=== PATIENT | male | born 1955 | race Two or more races ===

== ENCOUNTER 2022-07-09 09:21 | Inpatient (IN) | payer OTHER ==
[~2022-07-09] VITALS: Ht 175.3 cm; Wt 96.5 kg
[2022-07-09] MEDS ORDERED: ONDANSETRON HCL 4 MG/2 ML VIAL IV ONE (09:45)
[2022-07-09] MEDS ORDERED: PANTOPRAZOLE 40 MG/10 ML VIAL INJ IV ONE (09:45)
[2022-07-09] MEDS ORDERED: SODIUM CHLORIDE 0.9% 500 ML IVB ONE (09:45)
[2022-07-09] MEDS ORDERED: MORPHINE SULFATE 4 MG/ML SYR/VIAL IV ONE (09:45)
[2022-07-09 10:18] LABS: Albumin 3.6 g/dL (3.4-5.0); Calcium 9.6 mg/dL (8.5-10.1); Potassium 4.7 mmol/L (3.5-5.1)
[2022-07-09 10:27] LABS: BUN/Creatinine Ratio 22.7 (10.0-20.0); Bilirubin, Total 0.8 mg/dL (0.2-1.0); Total Protein 8.2 g/dL (6.4-8.2)
[2022-07-09] MEDS ORDERED: IOHEXOL 300 MG/ML 100ML BOTTLE IJ ONE (11:05)
[2022-07-09] MEDS ORDERED: hydrALAZINE HCL 20 MG/ML VL IV ONE (12:30)
[2022-07-09 12:54] LABS: Basophils # (auto) 0.1 10 ^3/uL (0-0.2); Basophils % (auto) 0.9 % (0.0-2.0); Eosinophils # (auto) 0.1 10 ^3/uL (0-0.8); Eosinophils % (auto) 0.9 % (0.0-7.0); Hematocrit 46.6 % (41.0-53.0); Hemoglobin 15.3 g/dL (13.5-17.5); Lymphocytes % (auto) 10.8 % (10.0-50.0); Mean Corpuscular Hemoglobin 28.2 pg (28.0-32.0); Mean Corpuscular Hgb Conc. 32.9 g/dL (32.0-36.0); Mean Corpuscular Volume 85.7 fL (80.0-100.0); Monocytes # (auto) 1.1 10 ^3/uL (0-1.3); Neutrophils % (auto) 75.4 % (37.0-80.0); Red Blood Cells 5.43 10^6/uL (4.5-5.90); Red Cell Distribution Width 14.2 % (11.8-14.3); White Blood Cell 9.3 10^3/uL (4.4-10.8)
[2022-07-09] MEDS ORDERED: LACTULOSE 20Gm/30ML SOLN PO ONE (13:00)
[2022-07-09] MEDS ORDERED: NITROGLYCERIN 0.4 MG SL TAB SL PRN (13:00)
[2022-07-09] MEDS ORDERED: ACETAMINOPHEN 325 MG TAB PO PRN (13:00)
[2022-07-09] MEDS ORDERED: DOCUSATE SOD 100 MG CAP PO PRN (13:00)
[2022-07-09] MEDS ORDERED: LISI-716 PO (13:04)
[2022-07-09] MEDS ORDERED: TAMS0.4C36 PO (13:04)
[2022-07-09] MEDS ORDERED: AMLO-496 PO (13:04)
[2022-07-09] MEDS ORDERED: hydrALAZINE HCL 20 MG/ML VL IV PRN (13:15)
[2022-07-09] MEDS ORDERED: GASTROGRAFIN 120 ML SOL ONE (13:56)
[2022-07-09 15:56] LABS: Urine Bacteria NONE SEEN /hpf (None Seen); Urine Blood Negative /uL (Negative); Urine WBC <1 /hpf (0 - 3)
[2022-07-09 15:58] LABS: Urine Specific Gravity > 1.050 (1.001-1.035)
[2022-07-09] MEDS: SODIUM CHLORIDE 0.9% 1,000 ML IV SCH (16:01)
[2022-07-09] MEDS: TAMSULOSIN HYDROCHLORIDE 0.4 MG CAP PO SCH (18:00)
[2022-07-10] MEDS: SODIUM CHLORIDE 0.9% 1,000 ML IV SCH ×2 (02:24→15:35)
[2022-07-10] MEDS: ONDANSETRON HCL 4 MG/2 ML VIAL IV PRN ×2 (03:15→10:57)
[2022-07-10] MEDS: MORPHINE SULFATE INJ 2 MG/ml SYRG IV PRN ×4 (05:20→21:54)
[2022-07-10 05:50] LABS: Potassium 3.6 mmol/L (3.5-5.1)
[2022-07-10 05:55] LABS: Albumin 3.6 g/dL (3.4-5.0); BUN/Creatinine Ratio 22.7 (10.0-20.0); Bilirubin, Total 0.9 mg/dL (0.2-1.0); Calcium 10.1 mg/dL (8.5-10.1)
[2022-07-10] MEDS: PANTOPRAZOLE 40 MG/10 ML VIAL INJ IV SCH (10:54)
[2022-07-10] MEDS: LACTULOSE 20Gm/30ML SOLN PO SCH (10:54)
[2022-07-10] MEDS: amLODIPine BESYLATE 5 MG TAB PO SCH (10:55)
[2022-07-10] MEDS ORDERED: ENALAPRILAT 1.25 MG/ML-1ML VIAL IV ONE (13:45)
[2022-07-10 14:15] VITALS: BP 130/73
[2022-07-10] MEDS ORDERED: INFLUENZA QUAD 2022-2023 0.5 ML SYRG IM ONE (16:15)
[2022-07-10] MEDS ORDERED: cloNIDine HCL 0.1 MG TAB PO PRN (16:15)
[2022-07-10] MEDS ORDERED: PNEUMOCOCCAL VACC POLYS 25 MCG/0.5 ML VIAL IM ONE (16:15)
[2022-07-10 17:00] VITALS: BP 122/69
[2022-07-10] MEDS: TAMSULOSIN HYDROCHLORIDE 0.4 MG CAP PO SCH (17:20)
[2022-07-10] MEDS ORDERED: TRIA75TA55 PO (20:42)
[2022-07-10] MEDS: LABETALOL HCL 200 MG TAB PO SCH (21:53)
[2022-07-10 22:00] VITALS: BP 155/93
[2022-07-11] VITALS: BP 130/85
[2022-07-11 05:00] VITALS: BP 117/74
[2022-07-11] MEDS: SODIUM CHLORIDE 0.9% 1,000 ML IV SCH ×2 (05:37→18:26)
[2022-07-11 05:55] LABS: Basophils # (auto) 0 10 ^3/uL (0-0.2); Basophils % (auto) 0.2 % (0.0-2.0); Eosinophils # (auto) 0 10 ^3/uL (0-0.8); Eosinophils % (auto) 0.2 % (0.0-7.0); Hematocrit 48.6 % (41.0-53.0); Hemoglobin 16.5 g/dL (13.5-17.5); Lymphocytes # (auto) 0.7 10 ^3/uL (0.4-5.4); Lymphocytes % (auto) 5.1 % (10.0-50.0); Mean Corpuscular Hemoglobin 28.9 pg (28.0-32.0); Mean Corpuscular Hgb Conc. 33.9 g/dL (32.0-36.0); Mean Corpuscular Volume 85.4 fL (80.0-100.0); Monocytes # (auto) 1.5 10 ^3/uL (0-1.3); Monocytes % (auto) 10.6 % (0.0-12.0); Neutrophils # (auto) 11.8 10 ^3/uL (1.6-8.6); Neutrophils % (auto) 83.9 % (37.0-80.0); Nucleated Red Blood Cells % 0.1 %; Red Blood Cells 5.69 10^6/uL (4.5-5.90); Red Cell Distribution Width 14.3 % (11.8-14.3); White Blood Cell 14.1 10^3/uL (4.4-10.8)
[2022-07-11 06:17] LABS: Potassium 4.2 mmol/L (3.5-5.1)
[2022-07-11 06:29] LABS: BUN/Creatinine Ratio 33.1 (10.0-20.0)
[2022-07-11 06:30] LABS: Albumin 3.1 g/dL (3.4-5.0); Calcium 9.2 mg/dL (8.5-10.1)
[2022-07-11] MEDS: MORPHINE SULFATE INJ 2 MG/ml SYRG IV PRN ×2 (06:50→20:28)
[2022-07-11] MEDS: ONDANSETRON HCL 4 MG/2 ML VIAL IV PRN ×2 (06:51→20:28)
[2022-07-11 06:53] LABS: Bilirubin, Total 0.7 mg/dL (0.2-1.0); Total Protein 6.7 g/dL (6.4-8.2)
[2022-07-11 09:00] VITALS: BP 126/77
[2022-07-11] MEDS: LACTULOSE 20Gm/30ML SOLN PO SCH (10:00)
[2022-07-11] MEDS: LABETALOL HCL 200 MG TAB PO SCH ×2 (10:00→22:41)
[2022-07-11] MEDS: amLODIPine BESYLATE 5 MG TAB PO SCH (10:00)
[2022-07-11] MEDS: PANTOPRAZOLE 40 MG/10 ML VIAL INJ IV SCH (10:46)
[2022-07-11] MEDS: ENOXAPARIN SOD 40 MG/0.4 ML SYRINGE SC SCH (10:46)
[2022-07-11 13:00] VITALS: BP 110/65
[2022-07-11 17:00] VITALS: BP 104/73
[2022-07-11] MEDS: TAMSULOSIN HYDROCHLORIDE 0.4 MG CAP PO SCH (18:00)
[2022-07-11 22:00] VITALS: BP 114/71
[2022-07-12 05:00] VITALS: BP 92/59
[2022-07-12 05:19] LABS: Basophils # (auto) 0 10 ^3/uL (0-0.2); Basophils % (auto) 0.2 % (0.0-2.0); Eosinophils # (auto) 0 10 ^3/uL (0-0.8); Eosinophils % (auto) 0.2 % (0.0-7.0); Hematocrit 47.2 % (41.0-53.0); Lymphocytes # (auto) 0.8 10 ^3/uL (0.4-5.4); Lymphocytes % (auto) 8.7 % (10.0-50.0); Mean Corpuscular Volume 85.5 fL (80.0-100.0); Monocytes # (auto) 1.3 10 ^3/uL (0-1.3); Monocytes % (auto) 14.1 % (0.0-12.0); Neutrophils # (auto) 6.9 10 ^3/uL (1.6-8.6); Neutrophils % (auto) 76.8 % (37.0-80.0); Nucleated Red Blood Cells % 0.1 %; Red Blood Cells 5.52 10^6/uL (4.5-5.90); Red Cell Distribution Width 14.3 % (11.8-14.3); White Blood Cell 8.9 10^3/uL (4.4-10.8)
[2022-07-12 05:30] LABS: BUN/Creatinine Ratio 29.2 (10.0-20.0); Calcium 9.1 mg/dL (8.5-10.1); Potassium 3.9 mmol/L (3.5-5.1)
[2022-07-12] MEDS: SODIUM CHLORIDE 0.9% 1,000 ML IV SCH ×2 (07:40→21:00)
[2022-07-12 09:00] VITALS: BP 97/53
[2022-07-12] MEDS: LACTULOSE 20Gm/30ML SOLN PO SCH (09:28)
[2022-07-12] MEDS: amLODIPine BESYLATE 5 MG TAB PO SCH (09:29)
[2022-07-12] MEDS: ENOXAPARIN SOD 40 MG/0.4 ML SYRINGE SC SCH (09:29)
[2022-07-12] MEDS: LABETALOL HCL 200 MG TAB PO SCH ×2 (09:29→23:10)
[2022-07-12] MEDS: PANTOPRAZOLE 40 MG/10 ML VIAL INJ IV SCH (10:00)
[2022-07-12] MEDS ORDERED: CLINIMIX PER PHARMACY 0 ML IV SCH (11:30)
[2022-07-12 12:48] LABS: Albumin 2.6 g/dL (3.4-5.0); Magnesium 2.7 mg/dL (1.6-2.6)
[2022-07-12 12:53] LABS: Bilirubin, Direct 0.3 mg/dL (0-0.2); Bilirubin, Total 0.8 mg/dL (0.2-1.0); Phosphorus 3.4 mg/dL (2.5-4.90); Total Protein 6.8 g/dL (6.4-8.2)
[2022-07-12 13:00] VITALS: BP 95/58
[2022-07-12 17:00] VITALS: BP 113/70
[2022-07-12] MEDS: TAMSULOSIN HYDROCHLORIDE 0.4 MG CAP PO SCH (17:47)
[2022-07-12 22:00] VITALS: BP 102/59
[2022-07-12] MEDS: InsuLIN REG 1unit/0.01ml Soln (100units/ml) SC SCH (23:10)
[2022-07-12] MEDS: ACCU-CHEK COMFORT CURVE STRIP VI SCH (23:11)
[2022-07-13] MEDS ORDERED: DEXTROSE (50%) 50ML SYRG IV SCH
[2022-07-13 05:00] VITALS: BP 89/48
[2022-07-13] MEDS: ACCU-CHEK COMFORT CURVE STRIP VI SCH ×3 (06:00→18:03)
[2022-07-13] MEDS: InsuLIN REG 1unit/0.01ml Soln (100units/ml) SC SCH ×3 (06:00→18:00)
[2022-07-13] MEDS: AMINO ACID INFUSION IN D10W 1,000 ML IV NR ×3 (08:39→21:49)
[2022-07-13 09:00] VITALS: BP 90/50
[2022-07-13] MEDS: PANTOPRAZOLE 40 MG/10 ML VIAL INJ IV SCH (09:48)
[2022-07-13] MEDS: LACTULOSE 20Gm/30ML SOLN PO SCH (09:49)
[2022-07-13] MEDS: ENOXAPARIN SOD 40 MG/0.4 ML SYRINGE SC SCH (09:51)
[2022-07-13] MEDS: LABETALOL HCL 200 MG TAB PO SCH (09:57)
[2022-07-13] MEDS: amLODIPine BESYLATE 5 MG TAB PO SCH (09:58)
[2022-07-13] MEDS: METOPROLOL TARTRATE 25 MG TAB PO SCH ×2 (10:00→22:00)
[2022-07-13 10:54] LABS: BUN/Creatinine Ratio 26.4 (10.0-20.0); Calcium 8.9 mg/dL (8.5-10.1); Potassium 3.8 mmol/L (3.5-5.1)
[2022-07-13] MEDS ORDERED: hydrALAZINE HCL 20 MG/ML VL IV PRN (12:00)
[2022-07-13] MEDS: D5W/SOD CHLO 0.9% 1,000 ML IV SCH ×2 (12:15→18:55)
[2022-07-13 12:50] LABS: Urine Bacteria NONE SEEN /hpf (None Seen); Urine Blood Negative /uL (Negative); Urine Hyaline Cast FEW /lpf (0 - 2); Urine Mucus FEW (None Seen); Urine Specific Gravity 1.021 (1.001-1.035); Urine WBC 1 /hpf (0 - 3)
[2022-07-13 13:00] VITALS: BP 86/51
[2022-07-13 13:14] LABS: Basophils # (auto) 0 10 ^3/uL (0-0.2); Basophils % (auto) 0.1 % (0.0-2.0); Eosinophils # (auto) 0.2 10 ^3/uL (0-0.8); Eosinophils % (auto) 2.4 % (0.0-7.0); Hematocrit 47.8 % (41.0-53.0); Hemoglobin 15.8 g/dL (13.5-17.5); Lymphocytes # (auto) 0.5 10 ^3/uL (0.4-5.4); Mean Corpuscular Hemoglobin 28.7 pg (28.0-32.0); Mean Corpuscular Hgb Conc. 33.1 g/dL (32.0-36.0); Mean Corpuscular Volume 86.5 fL (80.0-100.0); Monocytes # (auto) 0.9 10 ^3/uL (0-1.3); Monocytes % (auto) 14.1 % (0.0-12.0); Neutrophils % (auto) 75.4 % (37.0-80.0); Red Blood Cells 5.52 10^6/uL (4.5-5.90); Red Cell Distribution Width 14.2 % (11.8-14.3); White Blood Cell 6.7 10^3/uL (4.4-10.8)
[2022-07-13 13:15] LABS: Sodium Urine < 5 mmol/L (40-220)
[2022-07-13 13:17] LABS: Creatinine, Urine 287 mg/dL (30.0-125.0)
[2022-07-13 13:34] LABS: INR 1.03 (0.9-1.15); Partial Thromboplastin Time 35.1 sec (24.6-33.4)
[2022-07-13 17:00] VITALS: BP 115/58
[2022-07-13] MEDS ORDERED: LIDOCAINE 1% (LOCAL ANESTH.) PF 5ml SDV ID ONE (17:30)
[2022-07-13] MEDS ORDERED: ALBUMIN 25% 50 ML IV ONE ×2 (18:15→20:15)
[2022-07-13] MEDS: TAMSULOSIN HYDROCHLORIDE 0.4 MG CAP PO SCH (18:34)
[2022-07-13] MEDS: SODIUM CHLOR 0.9% PF (SALINE LOCK) 10ML VIAL/SYR IV SCH (22:00)
[2022-07-13] MEDS ORDERED: LORazepam 2MG/ML-1ML VIAL IV PRN (23:00)
[2022-07-13] MEDS ORDERED: LORazepam 2MG/ML-1ML VIAL IV ONE (23:30)
[2022-07-14] VITALS (33 sets, daily range): BP systolic 87–167; BP diastolic 37–103
[2022-07-14] MEDS: ACCU-CHEK COMFORT CURVE STRIP VI SCH ×4 (00:05→19:16)
[2022-07-14] MEDS: InsuLIN REG 1unit/0.01ml Soln (100units/ml) SC SCH ×4 (00:09→18:00)
[2022-07-14] MEDS: D5W/SOD CHLO 0.9% 1,000 ML IV SCH ×4 (01:35→22:37)
[2022-07-14 06:32] LABS: Hematocrit 44.8 % (41.0-53.0); Hemoglobin 15.1 g/dL (13.5-17.5); Mean Corpuscular Hemoglobin 28.6 pg (28.0-32.0); Mean Corpuscular Hgb Conc. 33.8 g/dL (32.0-36.0); Mean Corpuscular Volume 84.7 fL (80.0-100.0); Red Blood Cells 5.28 10^6/uL (4.5-5.90); White Blood Cell 5.9 10^3/uL (4.4-10.8)
[2022-07-14 06:33] LABS: Basophils % (manual) 0 (0.0-2.0); Blast Cells 0; Metamyelocytes % 0; Myelocytes % 0; Promyelocytes % 0; Reactive Lymphocytes 0
[2022-07-14 06:38] LABS: Potassium 3.4 mmol/L (3.5-5.1)
[2022-07-14 06:46] LABS: Albumin 2.8 g/dL (3.4-5.0); BUN/Creatinine Ratio 29.2 (10.0-20.0); Bilirubin, Total 0.6 mg/dL (0.2-1.0); Calcium 8.7 mg/dL (8.5-10.1); Magnesium 3.2 mg/dL (1.6-2.6); Phosphorus 4.2 mg/dL (2.5-4.90); Total Protein 7.2 g/dL (6.4-8.2)
[2022-07-14 07:15] LABS: Band Neutrophils % (manual) 2; Eosinophils % (manual) 1 (0-7); Lymphocytes % (manual) 18 (10.0-50.0); Monocytes % (manual) 15 (0-12)
[2022-07-14] MEDS ORDERED: POTASSIUM CHLORIDE 20 MEQ, LIDOCAINE 1% (LOCAL ANESTH.) 2 ML in SODIUM CHL 0.9% 100 ML IV ONE (09:45)
[2022-07-14] MEDS ORDERED: METOPROLOL TARTRATE 1MG/1ML-5ML VIAL IV ONE (09:45)
[2022-07-14] MEDS ORDERED: METOPROLOL TARTRATE 1MG/1ML-5ML VIAL IV PRN (09:45)
[2022-07-14] MEDS: METOPROLOL TARTRATE 25 MG TAB PO SCH ×2 (10:00→21:46)
[2022-07-14] MEDS: LACTULOSE 20Gm/30ML SOLN PO SCH (10:00)
[2022-07-14] MEDS: PANTOPRAZOLE 40 MG/10 ML VIAL INJ IV SCH (10:14)
[2022-07-14] MEDS: ENOXAPARIN SOD 40 MG/0.4 ML SYRINGE SC SCH (10:15)
[2022-07-14] MEDS: SODIUM CHLOR 0.9% PF (SALINE LOCK) 10ML VIAL/SYR IV SCH ×2 (10:15→21:46)
[2022-07-14] MEDS: MORPHINE SULFATE INJ 2 MG/ml SYRG IV PRN (10:19)
[2022-07-14 11:45] LABS: Lactic Acid w/Reflex 2.2 mmol/L (0.4-2.0)
[2022-07-14 11:49] LABS: INR 1.05 (0.9-1.15); Partial Thromboplastin Time 29.3 sec (24.6-33.4)
[2022-07-14] MEDS ORDERED: POTASSIUM CHL 20MEQ/100ML 100 ML IV ONE (12:15)
[2022-07-14] MEDS ORDERED: LIDOCAINE 2% JELLY 11ml (GLYDO) ONE (12:43)
[2022-07-14] MEDS ORDERED: HYDROmorphone HCL 2 MG/ML VL/or syr ONE (13:16)
[2022-07-14] MEDS ORDERED: fentaNYL CITRATE 100 MCG/2 ML VL ONE ×2 (13:16→16:06)
[2022-07-14] MEDS ORDERED: MIDAZOLAM HCL 2MG/2ML 2ml VIAL (1mg/ml) ONE ×2 (13:17→14:13)
[2022-07-14] MEDS ORDERED: fentaNYL CITRATE 5 ML ONE (13:17)
[2022-07-14] MEDS ORDERED: NOREPINEPHRINE 8 MG/250ML KIT 0 ML IV ONE (13:35)
[2022-07-14] MEDS ORDERED: SUCCINYLCHOLINE CHLORIDE 20 MG/ML 10ML VIAL IV ONE (13:43)
[2022-07-14] MEDS ORDERED: cefTRIAXone 1GM/50ML D5W 50 ML IV ONE (13:45)
[2022-07-14] MEDS ORDERED: NOREPINEPHRINE 8 MG/250ML KIT 250 ML IV ONE ×2 (13:45→22:43)
[2022-07-14] MEDS ORDERED: EPINEPHrine HCL 1 MG/1 ML AMP ONE (14:10)
[2022-07-14] MEDS ORDERED: ROCURONIUM 10MG/ML 10ML VIAL IV ONE (15:33)
[2022-07-14] MEDS ORDERED: PHENYLEPHRINE IV 250 ML IV ONE (16:15)
[2022-07-14] MEDS ORDERED: fentaNYL Drip 2500mCg/250mlNS 250 ML IV ONE (17:15)
[2022-07-14] MEDS: TAMSULOSIN HYDROCHLORIDE 0.4 MG CAP PO SCH (18:00)
[2022-07-14] MEDS: fentaNYL Drip 2500mCg/250mlNS 250 ML IV SCH (19:00)
[2022-07-14] MEDS: SODIUM BICARBONATE 50ML VIAL 50 ML in SOD CHL 0.45% 1,000 ML IV SCH (19:05)
[2022-07-14] MEDS: MEROPENEM 500MG IVPB 50 ML IV SCH (19:18)
[2022-07-14] MEDS: PHENYLEPHRINE IV 250 ML IV SCH (23:32)
[2022-07-15] VITALS (103 sets, daily range): BP systolic 76–170; BP diastolic 49–89
[2022-07-15] MEDS ORDERED: MIDAZOLAM DRIP 50 mg/50mL 100 ML IV ONE (01:52)
[2022-07-15] MEDS: MIDAZOLAM DRIP 50 mg/50mL 50 ML IV SCH ×2 (02:00→08:58)
[2022-07-15] MEDS: MEROPENEM 500MG IVPB 50 ML IV SCH ×2 (03:00→15:43)
[2022-07-15 03:30] LABS: Basophils # (auto) 0.1 10 ^3/uL (0-0.2); Basophils % (auto) 0.7 % (0.0-2.0); Eosinophils # (auto) 0 10 ^3/uL (0-0.8); Eosinophils % (auto) 0.1 % (0.0-7.0); Hematocrit 45.5 % (41.0-53.0); Hemoglobin 15.4 g/dL (13.5-17.5); Lymphocytes # (auto) 0.3 10 ^3/uL (0.4-5.4); Lymphocytes % (auto) 2.4 % (10.0-50.0); Mean Corpuscular Hemoglobin 28.5 pg (28.0-32.0); Mean Corpuscular Hgb Conc. 33.8 g/dL (32.0-36.0); Mean Corpuscular Volume 84.3 fL (80.0-100.0); Monocytes # (auto) 1.1 10 ^3/uL (0-1.3); Monocytes % (auto) 9.4 % (0.0-12.0); Neutrophils # (auto) 9.8 10 ^3/uL (1.6-8.6); Neutrophils % (auto) 87.4 % (37.0-80.0); Red Cell Distribution Width 14.4 % (11.8-14.3); White Blood Cell 11.3 10^3/uL (4.4-10.8)
[2022-07-15 04:29] LABS: Albumin 1.8 g/dL (3.4-5.0); Calcium 7.2 mg/dL (8.5-10.1); Magnesium 2.3 mg/dL (1.6-2.6); Potassium 4.1 mmol/L (3.5-5.1)
[2022-07-15 04:33] LABS: BUN/Creatinine Ratio 33.4 (10.0-20.0); Bilirubin, Total 0.9 mg/dL (0.2-1.0); Phosphorus 4.9 mg/dL (2.5-4.90); Total Protein 5.4 g/dL (6.4-8.2)
[2022-07-15] MEDS: D5W/SOD CHLO 0.9% 1,000 ML IV SCH ×2 (05:06→10:55)
[2022-07-15] MEDS: PHENYLEPHRINE IV 250 ML IV SCH ×2 (05:07→07:30)
[2022-07-15] MEDS: NOREPINEPHRINE 8 MG/250ML KIT 250 ML IV SCH ×3 (05:08→09:07)
[2022-07-15] MEDS: ACCU-CHEK COMFORT CURVE STRIP VI SCH ×6 (06:09→23:38)
[2022-07-15] MEDS: InsuLIN REG 1unit/0.01ml Soln (100units/ml) SC SCH ×5 (06:09→23:38)
[2022-07-15] MEDS: fentaNYL Drip 2500mCg/250mlNS 250 ML IV SCH ×2 (08:57→20:19)
[2022-07-15] MEDS: LACTULOSE 20Gm/30ML SOLN PO SCH (10:00)
[2022-07-15] MEDS: DOPamine 1600MCG/ML D5W 250 ML IV SCH (11:00)
[2022-07-15] MEDS: AMINO ACID INFUSION IN D10W 1,000 ML IV NR ×2 (12:28→20:16)
[2022-07-15] MEDS: PANTOPRAZOLE 40 MG/10 ML VIAL INJ IV SCH (12:29)
[2022-07-15] MEDS: SODIUM CHLOR 0.9% PF (SALINE LOCK) 10ML VIAL/SYR IV SCH ×2 (12:29→22:06)
[2022-07-15] MEDS: ENOXAPARIN SOD 40 MG/0.4 ML SYRINGE SC SCH (12:29)
[2022-07-15] MEDS: ALBUMIN 25% 50 ML IV SCH ×2 (12:31→20:15)
[2022-07-15] MEDS: PHENYLEPHRINE INJ 80 MG in SODIUM CHL 0.9% 242 ML IV SCH (13:26)
[2022-07-15] MEDS: SODIUM BICARBONATE 50ML VIAL 50 ML in SOD CHL 0.45% 1,000 ML IV SCH ×2 (13:46→14:15)
[2022-07-15] MEDS: NOREPINEPHRINE BITARTRATE 32 MG in SODIUM CHL 0.9% 218 ML IV SCH (13:46)
[2022-07-15] MEDS: TAMSULOSIN HYDROCHLORIDE 0.4 MG CAP PO SCH (18:00)
[2022-07-16] VITALS (106 sets, daily range): BP systolic 97–182; BP diastolic 43–120
[2022-07-16] MEDS: NOREPINEPHRINE BITARTRATE 32 MG in SODIUM CHL 0.9% 218 ML IV SCH (01:41)
[2022-07-16] MEDS: MIDAZOLAM DRIP 50 mg/50mL 50 ML IV SCH ×2 (01:41→17:30)
[2022-07-16] MEDS: ALBUMIN 25% 50 ML IV SCH (02:54)
[2022-07-16] MEDS: MEROPENEM 500MG IVPB 50 ML IV SCH ×2 (02:55→15:23)
[2022-07-16] MEDS: SODIUM BICARBONATE 50ML VIAL 50 ML in SOD CHL 0.45% 1,000 ML IV SCH ×2 (03:08→17:31)
[2022-07-16 04:25] LABS: Albumin 2.1 g/dL (3.4-5.0); Calcium 7.6 mg/dL (8.5-10.1); Magnesium 2.4 mg/dL (1.6-2.6); Potassium 3.4 mmol/L (3.5-5.1)
[2022-07-16 04:28] LABS: BUN/Creatinine Ratio 39.2 (10.0-20.0); Bilirubin, Total 0.6 mg/dL (0.2-1.0); Phosphorus 2.2 mg/dL (2.5-4.90); Total Protein 5.1 g/dL (6.4-8.2)
[2022-07-16] MEDS: InsuLIN REG 1unit/0.01ml Soln (100units/ml) SC SCH ×3 (05:40→23:27)
[2022-07-16 07:47] LABS: Hematocrit 36.8 % (41.0-53.0); Hemoglobin 12.1 g/dL (13.5-17.5); Mean Corpuscular Hemoglobin 28.1 pg (28.0-32.0); Mean Corpuscular Hgb Conc. 32.9 g/dL (32.0-36.0); Mean Corpuscular Volume 85.4 fL (80.0-100.0); Red Blood Cells 4.31 10^6/uL (4.5-5.90); Red Cell Distribution Width 14.8 % (11.8-14.3); White Blood Cell 7.5 10^3/uL (4.4-10.8)
[2022-07-16 07:57] LABS: Basophils % (manual) 0 (0.0-2.0); Blast Cells 0; Metamyelocytes % 0; Myelocytes % 0; Promyelocytes % 0; Reactive Lymphocytes 0
[2022-07-16 08:28] LABS: Band Neutrophils % (manual) 21; Eosinophils % (manual) 2 (0-7); Lymphocytes % (manual) 9 (10.0-50.0); Monocytes % (manual) 17 (0-12)
[2022-07-16] MEDS: fentaNYL Drip 2500mCg/250mlNS 250 ML IV SCH ×2 (08:56→21:59)
[2022-07-16] MEDS: DOPamine 1600MCG/ML D5W 250 ML IV SCH ×2 (08:57→13:58)
[2022-07-16] MEDS: PANTOPRAZOLE 40 MG/10 ML VIAL INJ IV SCH ×2 (08:58→20:58)
[2022-07-16] MEDS: SODIUM CHLOR 0.9% PF (SALINE LOCK) 10ML VIAL/SYR IV SCH ×2 (08:59→21:57)
[2022-07-16] MEDS: ENOXAPARIN SOD 40 MG/0.4 ML SYRINGE SC SCH (09:20)
[2022-07-16] MEDS ORDERED: POTASSIUM PHOSPHATE 22 MEQ in SODIUM CHL 0.9% 100 ML IV ONE (09:45)
[2022-07-16] MEDS: PHENYLEPHRINE INJ 80 MG in SODIUM CHL 0.9% 242 ML IV SCH (11:45)
[2022-07-16] MEDS: ACCU-CHEK COMFORT CURVE STRIP VI SCH ×2 (12:03→23:28)
[2022-07-16] MEDS ORDERED: POTASSIUM PHOSPHATE 26.4 MEQ in SODIUM CHL 0.9% 100 ML IV ONE (16:30)
[2022-07-16] MEDS: AMINO ACID INFUSION IN D10W 1,000 ML IV NR (20:31)
[2022-07-16] MEDS ORDERED: METOPROLOL TARTRATE 25 MG TAB PO SCH (22:00)
[2022-07-16] MEDS ORDERED: DEXTROSE 10% 250 ML IV ONE (23:19)
[2022-07-17] VITALS (105 sets, daily range): BP systolic 93–183; BP diastolic 53–91
[2022-07-17] MEDS: MEROPENEM 500MG IVPB 50 ML IV SCH ×2 (02:15→14:49)
[2022-07-17] MEDS: MIDAZOLAM DRIP 50 mg/50mL 50 ML IV SCH ×3 (02:35→21:46)
[2022-07-17] MEDS: DOPamine 1600MCG/ML D5W 250 ML IV SCH ×2 (02:43→16:56)
[2022-07-17 04:32] LABS: Basophils # (auto) 0 10 ^3/uL (0-0.2); Basophils % (auto) 0.1 % (0.0-2.0); Eosinophils # (auto) 0.1 10 ^3/uL (0-0.8); Eosinophils % (auto) 1.1 % (0.0-7.0); Hematocrit 36.5 % (41.0-53.0); Hemoglobin 12.2 g/dL (13.5-17.5); Lymphocytes # (auto) 0.6 10 ^3/uL (0.4-5.4); Lymphocytes % (auto) 7.1 % (10.0-50.0); Mean Corpuscular Hemoglobin 28.5 pg (28.0-32.0); Mean Corpuscular Hgb Conc. 33.5 g/dL (32.0-36.0); Monocytes # (auto) 0.9 10 ^3/uL (0-1.3); Neutrophils # (auto) 7.1 10 ^3/uL (1.6-8.6); Neutrophils % (auto) 81.7 % (37.0-80.0); Red Blood Cells 4.29 10^6/uL (4.5-5.90); Red Cell Distribution Width 14.8 % (11.8-14.3); White Blood Cell 8.7 10^3/uL (4.4-10.8)
[2022-07-17 04:39] LABS: Albumin 1.9 g/dL (3.4-5.0); Calcium 8.1 mg/dL (8.5-10.1); Magnesium 2.2 mg/dL (1.6-2.6); Potassium 3.1 mmol/L (3.5-5.1)
[2022-07-17 04:42] LABS: BUN/Creatinine Ratio 34.6 (10.0-20.0)
[2022-07-17 04:44] LABS: Phosphorus 1.8 mg/dL (2.5-4.90); Total Protein 5.3 g/dL (6.4-8.2)
[2022-07-17] MEDS: ACCU-CHEK COMFORT CURVE STRIP VI SCH ×3 (06:00→18:00)
[2022-07-17] MEDS: InsuLIN REG 1unit/0.01ml Soln (100units/ml) SC SCH ×3 (06:00→18:00)
[2022-07-17] MEDS: SODIUM BICARBONATE 50ML VIAL 50 ML in SOD CHL 0.45% 1,000 ML IV SCH ×2 (06:25→19:47)
[2022-07-17] MEDS: SODIUM CHLOR 0.9% PF (SALINE LOCK) 10ML VIAL/SYR IV SCH ×2 (09:49→22:00)
[2022-07-17] MEDS: PANTOPRAZOLE 40 MG/10 ML VIAL INJ IV SCH ×2 (09:54→21:43)
[2022-07-17] MEDS: ENOXAPARIN SOD 40 MG/0.4 ML SYRINGE SC SCH (09:54)
[2022-07-17] MEDS: fentaNYL Drip 2500mCg/250mlNS 250 ML IV SCH ×2 (10:05→21:59)
[2022-07-17] MEDS ORDERED: POTASSIUM PHOSPHATE 44 MEQ in D5W 5% 250 ML IV ONE (10:15)
[2022-07-17] MEDS: NOREPINEPHRINE BITARTRATE 32 MG in SODIUM CHL 0.9% 218 ML IV SCH (11:45)
[2022-07-17] MEDS: PHENYLEPHRINE INJ 80 MG in SODIUM CHL 0.9% 242 ML IV SCH (11:45)
[2022-07-17] MEDS ORDERED: SODIUM CHLORIDE 0.9% 500 ML IV ONE (12:45)
[2022-07-17] MEDS: AMINO ACID INFUSION IN D10W 1,000 ML IV NR (19:46)
[2022-07-18] VITALS (106 sets, daily range): BP systolic 58–181; BP diastolic 36–112
[2022-07-18 00:40] LABS: Urine Bacteria FEW /hpf (None Seen); Urine Blood 2+ /uL (Negative); Urine Specific Gravity 1.015 (1.001-1.035); Urine WBC 9 /hpf (0 - 3)
[2022-07-18] MEDS: ACCU-CHEK COMFORT CURVE STRIP VI SCH ×5 (00:49→23:45)
[2022-07-18] MEDS: MEROPENEM 500MG IVPB 50 ML IV SCH ×2 (02:55→15:07)
[2022-07-18 03:45] LABS: Basophils # (auto) 0 10 ^3/uL (0-0.2); Eosinophils # (auto) 0.2 10 ^3/uL (0-0.8); Hematocrit 35.4 % (41.0-53.0); Hemoglobin 11.9 g/dL (13.5-17.5); Lymphocytes # (auto) 0.7 10 ^3/uL (0.4-5.4); Lymphocytes % (auto) 8.3 % (10.0-50.0); Mean Corpuscular Hemoglobin 28.3 pg (28.0-32.0); Mean Corpuscular Hgb Conc. 33.5 g/dL (32.0-36.0); Mean Corpuscular Volume 84.6 fL (80.0-100.0); Monocytes # (auto) 1.1 10 ^3/uL (0-1.3); Monocytes % (auto) 13.3 % (0.0-12.0); Neutrophils # (auto) 6.1 10 ^3/uL (1.6-8.6); Neutrophils % (auto) 75.4 % (37.0-80.0); Red Blood Cells 4.19 10^6/uL (4.5-5.90); Red Cell Distribution Width 14.4 % (11.8-14.3); White Blood Cell 8.1 10^3/uL (4.4-10.8)
[2022-07-18 03:55] LABS: Albumin 1.6 g/dL (3.4-5.0); Calcium 7.9 mg/dL (8.5-10.1); Magnesium 1.9 mg/dL (1.6-2.6)
[2022-07-18 03:58] LABS: BUN/Creatinine Ratio 29.5 (10.0-20.0)
[2022-07-18 04:01] LABS: Bilirubin, Total 1.4 mg/dL (0.2-1.0); Phosphorus 2.2 mg/dL (2.5-4.90)
[2022-07-18] MEDS: DOPamine 1600MCG/ML D5W 250 ML IV SCH (05:38)
[2022-07-18] MEDS ORDERED: POTASSIUM CHL 20MEQ/100ML 100 ML IV ONE ×3 (06:00→18:15)
[2022-07-18] MEDS: InsuLIN REG 1unit/0.01ml Soln (100units/ml) SC SCH ×5 (06:00→23:45)
[2022-07-18] MEDS: SODIUM BICARBONATE 50ML VIAL 50 ML in SOD CHL 0.45% 1,000 ML IV SCH ×2 (09:10→22:01)
[2022-07-18] MEDS ORDERED: POTASSIUM PHOSPHATE 26.4 MEQ in SODIUM CHL 0.9% 100 ML IV ONE (09:15)
[2022-07-18] MEDS: PANTOPRAZOLE 40 MG/10 ML VIAL INJ IV SCH ×2 (10:09→21:59)
[2022-07-18] MEDS: ENOXAPARIN SOD 40 MG/0.4 ML SYRINGE SC SCH (10:09)
[2022-07-18] MEDS: SODIUM CHLOR 0.9% PF (SALINE LOCK) 10ML VIAL/SYR IV SCH ×2 (10:10→22:00)
[2022-07-18] MEDS: NOREPINEPHRINE BITARTRATE 32 MG in SODIUM CHL 0.9% 218 ML IV SCH ×2 (11:45→19:58)
[2022-07-18 15:10] LABS: Urine Amorphous Crystal FEW /hpf (None Seen); Urine Bacteria FEW /hpf (None Seen); Urine Blood 1+ /uL (Negative); Urine Specific Gravity 1.017 (1.001-1.035); Urine WBC <1 /hpf (0 - 3)
[2022-07-18 15:18] LABS: Creatinine, Urine 120 mg/dL (30.0-125.0); Sodium Urine 22 mmol/L (40-220)
[2022-07-18] MEDS ORDERED: NOREPINEPHRINE 8 MG/250ML KIT 250 ML IV ONE (19:50)
[2022-07-18] MEDS ORDERED: NOREPINEPHRINE BITARTRATE 6 ML IV ONE (19:51)
[2022-07-18] MEDS: MIDAZOLAM DRIP 50 mg/50mL 50 ML IV SCH (20:01)
[2022-07-18] MEDS: AMINO ACID INFUSION IN D10W 1,000 ML IV NR (20:01)
[2022-07-19] VITALS (101 sets, daily range): BP systolic 81–193; BP diastolic 50–168
[2022-07-19] MEDS: fentaNYL Drip 2500mCg/250mlNS 250 ML IV SCH (02:18)
[2022-07-19] MEDS: MEROPENEM 500MG IVPB 50 ML IV SCH ×2 (03:29→15:29)
[2022-07-19 03:56] LABS: Hematocrit 35.7 % (41.0-53.0); Hemoglobin 12.2 g/dL (13.5-17.5); Mean Corpuscular Hemoglobin 28.2 pg (28.0-32.0); Mean Corpuscular Volume 82.8 fL (80.0-100.0); Red Blood Cells 4.31 10^6/uL (4.5-5.90); Red Cell Distribution Width 14.2 % (11.8-14.3); White Blood Cell 10.9 10^3/uL (4.4-10.8)
[2022-07-19 04:10] LABS: Basophils % (manual) 0 (0.0-2.0); Blast Cells 0; Metamyelocytes % 0; Myelocytes % 0; Promyelocytes % 0; Reactive Lymphocytes 0
[2022-07-19 04:43] LABS: Albumin 1.7 g/dL (3.4-5.0); BUN/Creatinine Ratio 26.7 (10.0-20.0); Calcium 8.1 mg/dL (8.5-10.1); Magnesium 1.9 mg/dL (1.6-2.6); Phosphorus 3.8 mg/dL (2.5-4.90); Total Protein 5.4 g/dL (6.4-8.2)
[2022-07-19 05:32] LABS: Potassium 3.5 mmol/L (3.5-5.1)
[2022-07-19] MEDS: InsuLIN REG 1unit/0.01ml Soln (100units/ml) SC SCH ×3 (06:00→18:00)
[2022-07-19] MEDS: ACCU-CHEK COMFORT CURVE STRIP VI SCH ×3 (06:19→18:11)
[2022-07-19 07:28] LABS: Band Neutrophils % (manual) 6; Eosinophils % (manual) 4 (0-7); Lymphocytes % (manual) 10 (10.0-50.0); Monocytes % (manual) 4 (0-12)
[2022-07-19] MEDS: SODIUM CHLOR 0.9% PF (SALINE LOCK) 10ML VIAL/SYR IV SCH ×2 (09:57→22:44)
[2022-07-19] MEDS: PANTOPRAZOLE 40 MG/10 ML VIAL INJ IV SCH ×2 (09:57→22:41)
[2022-07-19] MEDS: ENOXAPARIN SOD 40 MG/0.4 ML SYRINGE SC SCH (09:57)
[2022-07-19] MEDS: SODIUM BICARBONATE 50ML VIAL 50 ML in SOD CHL 0.45% 1,000 ML IV SCH (11:52)
[2022-07-19] MEDS ORDERED: BUMETANIDE 2.5mg/10ml (0.25 mg/ml) INJ IV ONE (13:30)
[2022-07-19] MEDS: AMINO ACID INFUSION IN D10W 1,000 ML IV NR (21:05)
[2022-07-19] MEDS: POTASSIUM CHL 20MEQ/100ML 100 ML IV SCH ×2 (21:06→23:37)
[2022-07-19] MEDS: NYSTATIN (MOUTH-THROAT) 500,000 UNITS/5 ML SUSP MT SCH (22:45)
[2022-07-20] VITALS (78 sets, daily range): BP systolic 106–191; BP diastolic 51–130
[2022-07-20] MEDS: MIDAZOLAM DRIP 50 mg/50mL 50 ML IV SCH (02:00)
[2022-07-20] MEDS: MEROPENEM 500MG IVPB 50 ML IV SCH ×2 (03:00→14:58)
[2022-07-20] MEDS ORDERED: DexmedeTOMIDine 4 ML IV ONE (03:15)
[2022-07-20] MEDS: NYSTATIN (MOUTH-THROAT) 500,000 UNITS/5 ML SUSP MT SCH ×5 (06:00→17:10)
[2022-07-20] MEDS: InsuLIN REG 1unit/0.01ml Soln (100units/ml) SC SCH ×4 (06:00→17:11)
[2022-07-20] MEDS: ACCU-CHEK COMFORT CURVE STRIP VI SCH ×4 (06:00→17:11)
[2022-07-20] MEDS: SODIUM BICARBONATE 50ML VIAL 50 ML in SOD CHL 0.45% 1,000 ML IV SCH (06:15)
[2022-07-20 07:08] LABS: Basophils # (auto) 0.1 10 ^3/uL (0-0.2); Basophils % (auto) 0.6 % (0.0-2.0); Eosinophils # (auto) 0.2 10 ^3/uL (0-0.8); Eosinophils % (auto) 1.6 % (0.0-7.0); Hematocrit 37.8 % (41.0-53.0); Hemoglobin 12.7 g/dL (13.5-17.5); Lymphocytes # (auto) 0.8 10 ^3/uL (0.4-5.4); Mean Corpuscular Hemoglobin 28.1 pg (28.0-32.0); Mean Corpuscular Hgb Conc. 33.6 g/dL (32.0-36.0); Mean Corpuscular Volume 83.6 fL (80.0-100.0); Monocytes # (auto) 1.2 10 ^3/uL (0-1.3); Monocytes % (auto) 8.6 % (0.0-12.0); Neutrophils # (auto) 11.3 10 ^3/uL (1.6-8.6); Neutrophils % (auto) 83.2 % (37.0-80.0); Nucleated Red Blood Cells % 0.1 %; Red Blood Cells 4.52 10^6/uL (4.5-5.90); Red Cell Distribution Width 14.4 % (11.8-14.3); White Blood Cell 13.6 10^3/uL (4.4-10.8)
[2022-07-20 07:34] LABS: Albumin 1.6 g/dL (3.4-5.0); Calcium 8.3 mg/dL (8.5-10.1); Magnesium 2.2 mg/dL (1.6-2.6); Potassium 3.1 mmol/L (3.5-5.1)
[2022-07-20 07:38] LABS: BUN/Creatinine Ratio 26.7 (10.0-20.0); Bilirubin, Total 2.7 mg/dL (0.2-1.0); Phosphorus 2.9 mg/dL (2.5-4.90); Total Protein 5.3 g/dL (6.4-8.2)
[2022-07-20] MEDS: SODIUM CHLOR 0.9% PF (SALINE LOCK) 10ML VIAL/SYR IV SCH ×2 (07:58→21:56)
[2022-07-20] MEDS: NOREPINEPHRINE BITARTRATE 32 MG in SODIUM CHL 0.9% 218 ML IV SCH (07:58)
[2022-07-20] MEDS: PANTOPRAZOLE 40 MG/10 ML VIAL INJ IV SCH ×2 (08:44→22:28)
[2022-07-20] MEDS: MAGNESIUM SULFATE 1GM/100ML 100 ML IV SCH ×2 (08:44→09:28)
[2022-07-20] MEDS: ENOXAPARIN SOD 40 MG/0.4 ML SYRINGE SC SCH (08:44)
[2022-07-20] MEDS: POTASSIUM CHL 20MEQ/100ML 100 ML IV SCH ×4 (08:44→14:15)
[2022-07-20] MEDS: ALBUMIN 25% 50 ML IV SCH ×2 (09:30→15:52)
[2022-07-20] MEDS: METOPROLOL TARTRATE 25 MG TAB PO SCH ×2 (09:58→21:57)
[2022-07-20] MEDS: MORPHINE SULFATE INJ 2 MG/ml SYRG IV PRN ×2 (10:46→16:37)
[2022-07-20] MEDS ORDERED: POTASSIUM CHLORIDE 40 MEQ, LIDOCAINE 1% (LOCAL ANESTH.) 4 ML in SODIUM CHL 0.9% 250 ML IV ONE (16:30)
[2022-07-20] MEDS: fentaNYL Drip 2500mCg/250mlNS 250 ML IV SCH (17:29)
[2022-07-20] MEDS: AMINO ACID INFUSION IN D10W 1,000 ML IV NR (18:20)
[2022-07-21] VITALS (75 sets, daily range): BP systolic 95–172; BP diastolic 49–99
[2022-07-21] MEDS: ACCU-CHEK COMFORT CURVE STRIP VI SCH ×4 (00:08→19:30)
[2022-07-21] MEDS: ALBUMIN 25% 50 ML IV SCH (01:30)
[2022-07-21] MEDS: MIDAZOLAM DRIP 50 mg/50mL 50 ML IV SCH (01:39)
[2022-07-21] MEDS: SODIUM BICARBONATE 50ML VIAL 50 ML in SOD CHL 0.45% 1,000 ML IV SCH ×2 (02:15→10:15)
[2022-07-21] MEDS: MEROPENEM 500MG IVPB 50 ML IV SCH ×2 (03:00→15:12)
[2022-07-21 04:31] LABS: Basophils # (auto) 0.1 10 ^3/uL (0-0.2); Basophils % (auto) 0.4 % (0.0-2.0); Eosinophils # (auto) 0.1 10 ^3/uL (0-0.8); Eosinophils % (auto) 0.6 % (0.0-7.0); Hematocrit 33.1 % (41.0-53.0); Hemoglobin 11.2 g/dL (13.5-17.5); Lymphocytes # (auto) 1.2 10 ^3/uL (0.4-5.4); Lymphocytes % (auto) 7.5 % (10.0-50.0); Mean Corpuscular Hemoglobin 27.9 pg (28.0-32.0); Mean Corpuscular Hgb Conc. 33.7 g/dL (32.0-36.0); Mean Corpuscular Volume 82.9 fL (80.0-100.0); Monocytes # (auto) 2.1 10 ^3/uL (0-1.3); Monocytes % (auto) 12.8 % (0.0-12.0); Neutrophils # (auto) 12.6 10 ^3/uL (1.6-8.6); Neutrophils % (auto) 78.7 % (37.0-80.0); Red Cell Distribution Width 14.1 % (11.8-14.3)
[2022-07-21 04:46] LABS: Albumin 1.9 g/dL (3.4-5.0); Potassium 3.1 mmol/L (3.5-5.1)
[2022-07-21 04:50] LABS: BUN/Creatinine Ratio 25.4 (10.0-20.0); Bilirubin, Total 3.4 mg/dL (0.2-1.0); Phosphorus 2.5 mg/dL (2.5-4.90); Total Protein 5.2 g/dL (6.4-8.2)
[2022-07-21] MEDS: NYSTATIN (MOUTH-THROAT) 500,000 UNITS/5 ML SUSP MT SCH ×4 (06:00→17:53)
[2022-07-21] MEDS: InsuLIN REG 1unit/0.01ml Soln (100units/ml) SC SCH ×4 (06:00→19:30)
[2022-07-21] MEDS: ENOXAPARIN SOD 40 MG/0.4 ML SYRINGE SC SCH (09:30)
[2022-07-21] MEDS: PANTOPRAZOLE 40 MG/10 ML VIAL INJ IV SCH ×2 (09:30→21:48)
[2022-07-21] MEDS: METOPROLOL TARTRATE 25 MG TAB PO SCH ×2 (09:31→21:38)
[2022-07-21] MEDS: SODIUM CHLOR 0.9% PF (SALINE LOCK) 10ML VIAL/SYR IV SCH ×2 (10:20→21:38)
[2022-07-21] MEDS ORDERED: POTASSIUM CHLORIDE 60 MEQ, LIDOCAINE 1% (LOCAL ANESTH.) 6 ML in SODIUM CHL 0.9% 500 ML IV ONE (10:30)
[2022-07-21] MEDS: ONDANSETRON HCL 4 MG/2 ML VIAL IV PRN (11:42)
[2022-07-21] MEDS: LACTATED RINGER'S 1,000 ML IV SCH (15:11)
[2022-07-21] MEDS: AMINO ACID INFUSION IN D10W 1,000 ML IV NR (20:00)
[2022-07-22] VITALS (24 sets, daily range): BP systolic 120–196; BP diastolic 61–117
[2022-07-22] MEDS: ACCU-CHEK COMFORT CURVE STRIP VI SCH ×5 (00:09→23:40)
[2022-07-22] MEDS: hydrALAZINE HCL 20 MG/ML VL IV PRN ×2 (00:17→10:22)
[2022-07-22] MEDS: LACTATED RINGER'S 1,000 ML IV SCH ×2 (02:30→14:45)
[2022-07-22] MEDS: MEROPENEM 500MG IVPB 50 ML IV SCH ×2 (02:38→15:00)
[2022-07-22 04:33] LABS: Basophils # (auto) 0.1 10 ^3/uL (0-0.2); Basophils % (auto) 0.7 % (0.0-2.0); Eosinophils # (auto) 0.2 10 ^3/uL (0-0.8); Eosinophils % (auto) 1.3 % (0.0-7.0); Hematocrit 35.3 % (41.0-53.0); Lymphocytes # (auto) 1.1 10 ^3/uL (0.4-5.4); Lymphocytes % (auto) 8.3 % (10.0-50.0); Mean Corpuscular Hgb Conc. 33.9 g/dL (32.0-36.0); Mean Corpuscular Volume 82.5 fL (80.0-100.0); Monocytes # (auto) 1.7 10 ^3/uL (0-1.3); Monocytes % (auto) 13.4 % (0.0-12.0); Neutrophils # (auto) 9.8 10 ^3/uL (1.6-8.6); Neutrophils % (auto) 76.3 % (37.0-80.0); Red Blood Cells 4.27 10^6/uL (4.5-5.90); Red Cell Distribution Width 14.2 % (11.8-14.3); White Blood Cell 12.9 10^3/uL (4.4-10.8)
[2022-07-22 04:45] LABS: Albumin 1.8 g/dL (3.4-5.0); Calcium 7.9 mg/dL (8.5-10.1); Potassium 3.4 mmol/L (3.5-5.1)
[2022-07-22 04:51] LABS: BUN/Creatinine Ratio 25.9 (10.0-20.0); Bilirubin, Total 2.6 mg/dL (0.2-1.0); Phosphorus 2.1 mg/dL (2.5-4.90); Total Protein 5.4 g/dL (6.4-8.2)
[2022-07-22] MEDS: NYSTATIN (MOUTH-THROAT) 500,000 UNITS/5 ML SUSP MT SCH ×5 (05:44→23:40)
[2022-07-22] MEDS: InsuLIN REG 1unit/0.01ml Soln (100units/ml) SC SCH ×5 (05:45→23:40)
[2022-07-22] MEDS ORDERED: GASTROGRAFIN 30 ML SOL ONE (10:04)
[2022-07-22] MEDS: PANTOPRAZOLE 40 MG/10 ML VIAL INJ IV SCH ×2 (10:14→22:00)
[2022-07-22] MEDS: SODIUM CHLOR 0.9% PF (SALINE LOCK) 10ML VIAL/SYR IV SCH ×2 (10:14→22:00)
[2022-07-22] MEDS: METOPROLOL TARTRATE 25 MG TAB PO SCH ×2 (10:14→22:00)
[2022-07-22] MEDS: ENOXAPARIN SOD 40 MG/0.4 ML SYRINGE SC SCH (10:15)
[2022-07-22] MEDS ORDERED: POTASSIUM PHOSPHATE 22 MEQ in SODIUM CHL 0.9% 100 ML IV ONE (11:00)
[2022-07-22] MEDS ORDERED: POTASSIUM EFFERVESENT TAB 25 MEQ PO ONE (16:00)
[2022-07-22] MEDS ORDERED: POTASSIUM PHOSPHATE 26.4 MEQ in SODIUM CHL 0.9% 100 ML IV ONE (16:00)
[2022-07-22] MEDS: AMINO ACID INFUSION IN D10W 1,000 ML IV NR (18:24)
[2022-07-23] VITALS (18 sets, daily range): BP systolic 118–159; BP diastolic 61–94
[2022-07-23] MEDS: MEROPENEM 500MG IVPB 50 ML IV SCH ×2 (02:52→15:00)
[2022-07-23 04:57] LABS: Albumin 1.9 g/dL (3.4-5.0); BUN/Creatinine Ratio 21.9 (10.0-20.0); Calcium 8.1 mg/dL (8.5-10.1); Magnesium 1.6 mg/dL (1.6-2.6); Potassium 3.5 mmol/L (3.5-5.1)
[2022-07-23 05:00] LABS: Bilirubin, Total 1.9 mg/dL (0.2-1.0); Phosphorus 3.6 mg/dL (2.5-4.90); Total Protein 5.4 g/dL (6.4-8.2)
[2022-07-23] MEDS: InsuLIN REG 1unit/0.01ml Soln (100units/ml) SC SCH ×3 (06:00→18:00)
[2022-07-23] MEDS: ACCU-CHEK COMFORT CURVE STRIP VI SCH ×3 (06:05→18:06)
[2022-07-23] MEDS: NYSTATIN (MOUTH-THROAT) 500,000 UNITS/5 ML SUSP MT SCH ×3 (06:05→19:23)
[2022-07-23] MEDS: PANTOPRAZOLE 40 MG/10 ML VIAL INJ IV SCH ×2 (10:08→21:42)
[2022-07-23] MEDS: ENOXAPARIN SOD 40 MG/0.4 ML SYRINGE SC SCH (10:09)
[2022-07-23] MEDS: METOPROLOL TARTRATE 25 MG TAB PO SCH ×2 (10:09→21:43)
[2022-07-23] MEDS: SODIUM CHLOR 0.9% PF (SALINE LOCK) 10ML VIAL/SYR IV SCH ×2 (10:11→21:42)
[2022-07-23] MEDS: LACTATED RINGER'S 1,000 ML IV SCH (10:11)
[2022-07-23 12:13] LABS: Basophils # (auto) 0 10 ^3/uL (0-0.2); Basophils % (auto) 0.6 % (0.0-2.0); Eosinophils # (auto) 0.1 10 ^3/uL (0-0.8); Eosinophils % (auto) 1.5 % (0.0-7.0); Hematocrit 34.1 % (41.0-53.0); Hemoglobin 11.3 g/dL (13.5-17.5); Lymphocytes # (auto) 1.1 10 ^3/uL (0.4-5.4); Lymphocytes % (auto) 13.2 % (10.0-50.0); Mean Corpuscular Hemoglobin 27.9 pg (28.0-32.0); Mean Corpuscular Hgb Conc. 33.2 g/dL (32.0-36.0); Mean Corpuscular Volume 84.3 fL (80.0-100.0); Monocytes # (auto) 0.9 10 ^3/uL (0-1.3); Monocytes % (auto) 10.8 % (0.0-12.0); Neutrophils # (auto) 6.4 10 ^3/uL (1.6-8.6); Neutrophils % (auto) 73.9 % (37.0-80.0); Nucleated Red Blood Cells % 0.1 %; Red Blood Cells 4.05 10^6/uL (4.5-5.90); Red Cell Distribution Width 14.6 % (11.8-14.3); White Blood Cell 8.7 10^3/uL (4.4-10.8)
[2022-07-23 12:29] LABS: Albumin 1.8 g/dL (3.4-5.0); Calcium 7.8 mg/dL (8.5-10.1); Potassium 3.3 mmol/L (3.5-5.1)
[2022-07-23 12:32] LABS: BUN/Creatinine Ratio 19.5 (10.0-20.0); Bilirubin, Total 1.7 mg/dL (0.2-1.0); Total Protein 5.1 g/dL (6.4-8.2)
[2022-07-24] MEDS: LACTATED RINGER'S 1,000 ML IV SCH ×2 (01:47→04:06)
[2022-07-24] MEDS: NYSTATIN (MOUTH-THROAT) 500,000 UNITS/5 ML SUSP MT SCH ×4 (01:48→19:27)
[2022-07-24] MEDS: MEROPENEM 500MG IVPB 50 ML IV SCH ×2 (04:06→15:58)
[2022-07-24 05:00] VITALS: BP 119/59
[2022-07-24 09:00] VITALS: BP 142/74
[2022-07-24] MEDS: METOPROLOL TARTRATE 25 MG TAB PO SCH ×2 (09:59→22:43)
[2022-07-24] MEDS: ENOXAPARIN SOD 40 MG/0.4 ML SYRINGE SC SCH (10:00)
[2022-07-24] MEDS: PANTOPRAZOLE 40 MG/10 ML VIAL INJ IV SCH ×2 (10:00→22:43)
[2022-07-24] MEDS: SODIUM CHLOR 0.9% PF (SALINE LOCK) 10ML VIAL/SYR IV SCH ×2 (10:00→22:43)
[2022-07-24 13:00] VITALS: BP 135/82
[2022-07-24 17:00] VITALS: BP 123/87
[2022-07-24 22:00] VITALS: BP 130/86
[2022-07-25] MEDS: NYSTATIN (MOUTH-THROAT) 500,000 UNITS/5 ML SUSP MT SCH ×3 (01:21→11:30)
[2022-07-25] MEDS: MEROPENEM 500MG IVPB 50 ML IV SCH ×2 (03:23→15:00)
[2022-07-25 05:00] VITALS: BP 140/70
[2022-07-25 06:05] LABS: Basophils # (auto) 0.1 10 ^3/uL (0-0.2); Eosinophils # (auto) 0.2 10 ^3/uL (0-0.8); Lymphocytes # (auto) 1.5 10 ^3/uL (0.4-5.4); Neutrophils % (auto) 60.9 % (37.0-80.0)
[2022-07-25 06:07] LABS: Eosinophils % (auto) 3.3 % (0.0-7.0); Hematocrit 31.8 % (41.0-53.0); Hemoglobin 10.9 g/dL (13.5-17.5); Lymphocytes % (auto) 22.3 % (10.0-50.0); Mean Corpuscular Hemoglobin 28.5 pg (28.0-32.0); Mean Corpuscular Hgb Conc. 34.3 g/dL (32.0-36.0); Mean Corpuscular Volume 82.9 fL (80.0-100.0); Monocytes # (auto) 0.8 10 ^3/uL (0-1.3); Monocytes % (auto) 12.5 % (0.0-12.0); Neutrophils # (auto) 4.1 10 ^3/uL (1.6-8.6); Nucleated Red Blood Cells % 0.1 %; Red Blood Cells 3.83 10^6/uL (4.5-5.90); Red Cell Distribution Width 14.1 % (11.8-14.3); White Blood Cell 6.8 10^3/uL (4.4-10.8)
[2022-07-25 06:26] LABS: Albumin 1.9 g/dL (3.4-5.0); Calcium 7.7 mg/dL (8.5-10.1); Potassium 3.4 mmol/L (3.5-5.1)
[2022-07-25 06:32] LABS: BUN/Creatinine Ratio 14.3 (10.0-20.0); Bilirubin, Total 1.2 mg/dL (0.2-1.0); Magnesium 1.8 mg/dL (1.6-2.6); Total Protein 5.1 g/dL (6.4-8.2)
[2022-07-25 09:00] VITALS: BP 123/70
[2022-07-25] MEDS: ENOXAPARIN SOD 40 MG/0.4 ML SYRINGE SC SCH (09:14)
[2022-07-25] MEDS: PANTOPRAZOLE 40 MG/10 ML VIAL INJ IV SCH (09:14)
[2022-07-25] MEDS: METOPROLOL TARTRATE 25 MG TAB PO SCH (09:14)
[2022-07-25] MEDS: SODIUM CHLOR 0.9% PF (SALINE LOCK) 10ML VIAL/SYR IV SCH (09:15)
[2022-07-25] MEDS: LACTATED RINGER'S 1,000 ML IV SCH (09:34)
[2022-07-25 13:00] VITALS: BP 120/64
[2022-07-25] MEDS ORDERED: CIPR-173 PO (14:41)
[2022-07-25] MEDS ORDERED: MET25T PO (14:41)
[2022-07-25 15:29] VITALS: BP 118/68
== END 2022-07-25 15:30 | disposition home or self-care (01) | DRG 329 ==
LOC: ER 09:21 → TELE 13:02 → TELE-CENTR 07-10 15:55 → ICU WEST 07-14 17:56 → TELE-WESTW 07-23 17:10 → WEST WING 07-23 20:00
PROVIDERS: ADMIT Nurse Practitioner Family; ATTEND Internal Medicine
PROC: 02HV33Z Insertion of Infusion Device into Superior Vena Cava, Percutaneous Approach (ICD-10-PCS; 2022-07-13)
PROC: 0BH17EZ Insertion of Endotracheal Airway into Trachea, Via Natural or Artificial Opening (ICD-10-PCS; 2022-07-14)
PROC: 5A1955Z Respiratory Ventilation, Greater than 96 Consecutive Hours (ICD-10-PCS; 2022-07-14)
PROC: 0DT80ZZ Resection of Small Intestine, Open Approach (ICD-10-PCS; principal; 2022-07-14 13:50)
PROC: 05HA33Z Insertion of Infusion Device into Left Brachial Vein, Percutaneous Approach (ICD-10-PCS; 2022-07-15)
PROC: B54NZZA Ultrasonography of Left Upper Extremity Veins, Guidance (ICD-10-PCS; 2022-07-15)
DX: K46.0 Unspecified abdominal hernia with obstruction, without gangrene (principal); J96.00 Acute respiratory failure, unspecified whether with hypoxia or hypercapnia; N17.0 Acute kidney failure with tubular necrosis; R57.1 Hypovolemic shock; E87.1 Hypo-osmolality and hyponatremia; I47.1 Supraventricular tachycardia; E87.20 Acidosis, unspecified; K56.51 Intestinal adhesions [bands], with partial obstruction; K56.7 Ileus, unspecified; Z20.822 Contact with and (suspected) exposure to COVID-19; E86.9 Volume depletion, unspecified; I95.9 Hypotension, unspecified; N18.2 Chronic kidney disease, stage 2 (mild); K43.5 Parastomal hernia without obstruction or gangrene; K59.01 Slow transit constipation; I12.9 Hypertensive chronic kidney disease with stage 1 through stage 4 chronic kidney disease, or unspecified chronic kidney disease; E87.6 Hypokalemia; E78.5 Hyperlipidemia, unspecified; Z85.038 Personal history of other malignant neoplasm of large intestine; Z90.49 Acquired absence of other specified parts of digestive tract; Z90.79 Acquired absence of other genital organ(s); Z93.3 Colostomy status
CPT/HCPCS: 36415; 36569; 36600; 71045; 74018; 74176; 74177; 74250; 76775; 80048; 80053; 80061; 80076; 81001; 82378; 82570; 82805; 82962; 83036; 83605; 83690; 83735; 83880; 83935; 84100; 84132; 84300; 84439; 84443; 85007; 85025; 85027; 85610; 85730; 86850; 86900; 86901; 87040; 87070; 87077; 87081; 87086; 87186; 87205; 87426; 87804; 90686; 93005; 93306; 94003; 94640; 96374; 96375; 97110; 97116; 97163; 97530; C9113; G0378; J0171; J0330; J0696; J1815; J2001; J2185; J2250; J2405; J3480; J7042; J7060; P9047

== ENCOUNTER → 2023-02-22 | Outpatient (CLI) | payer OTHER ==
[~2023-02-22] MED LIST: CIPR-173 PO; MET25T PO; TAMS0.4C36 PO
[2023-02-22 10:42] LABS: Basophils # (auto) 0.1 10 ^3/uL (0-0.2); Basophils % (auto) 1.1 % (0.0-2.0); Eosinophils # (auto) 0.3 10 ^3/uL (0-0.8); Eosinophils % (auto) 5.9 % (0.0-7.0); Hematocrit 44.7 % (41.0-53.0); Hemoglobin 14.9 g/dL (13.5-17.5); Lymphocytes # (auto) 1.5 10 ^3/uL (0.4-5.4); Lymphocytes % (auto) 30.7 % (10.0-50.0); Mean Corpuscular Hemoglobin 28.6 pg (28.0-32.0); Mean Corpuscular Hgb Conc. 33.3 g/dL (32.0-36.0); Monocytes # (auto) 0.8 10 ^3/uL (0-1.3); Monocytes % (auto) 15.8 % (0.0-12.0); Neutrophils # (auto) 2.3 10 ^3/uL (1.6-8.6); Neutrophils % (auto) 46.5 % (37.0-80.0); Nucleated Red Blood Cells % 0.2 %; Red Cell Distribution Width 14.2 % (11.8-14.3); White Blood Cell 4.9 10^3/uL (4.4-10.8)
[2023-02-22 11:36] LABS: Alanine Aminotransferase 23 U/L (7-40); Alkaline Phosphatase 112 U/L (46-116); Anion Gap 7 (5-15); Blood Urea Nitrogen 17 mg/dL (9-23); Calcium 9.9 mg/dL (8.5-10.1); Carbon Dioxide 29 mmol/L (20-30); Chloride 106 mmol/L (98-107); Glucose 162 mg/dL (74-106); LDL Cholesterol 109 mg/dL (< 100); Potassium 4.1 mmol/L (3.5-5.1); Sodium 142 mmol/L (136-145); Triglycerides 174 mg/dL (< 150)
[2023-02-22 11:37] LABS: Albumin 4.3 g/dL (3.2-4.8); Aspartate Aminotransferase 20 U/L (13-40); Bilirubin, Direct < 0.1 mg/dL (<0.3); Cholesterol 165 mg/dL (< 200); HDL Cholesterol 34 mg/dL (40-59)
[2023-02-22 11:38] LABS: Bilirubin, Total 0.2 mg/dL (0.2-1.0); Total Protein 6.9 g/dL (5.7-8.2)
== END | disposition home or self-care (01) ==
LOC: LAB 10:09
PROVIDERS: ATTEND Internal Medicine Hematology & Oncology
DX: I10 Essential (primary) hypertension (principal); H25.89 Other age-related cataract; R97.21 Rising PSA following treatment for malignant neoplasm of prostate; G60.3 Idiopathic progressive neuropathy; Z85.048 Personal history of other malignant neoplasm of rectum, rectosigmoid junction, and anus; Z85.46 Personal history of malignant neoplasm of prostate; Z93.3 Colostomy status
CPT/HCPCS: 36415; 80048; 80061; 80076; 84153; 84403; 85025

== ENCOUNTER 2023-03-08 09:59 | Emergency (ER) | payer OTHER ==
[~2023-03-08] VITALS: Ht 175.3 cm; Wt 88.1 kg
[2023-03-08 11:22] LABS: Basophils # (auto) 0.1 10 ^3/uL (0-0.2); Basophils % (auto) 0.8 % (0.0-2.0); Eosinophils # (auto) 0.4 10 ^3/uL (0-0.8); Eosinophils % (auto) 5.9 % (0.0-7.0); Hematocrit 45.6 % (41.0-53.0); Hemoglobin 14.8 g/dL (13.5-17.5); Lymphocytes # (auto) 2.1 10 ^3/uL (0.4-5.4); Lymphocytes % (auto) 32.3 % (10.0-50.0); Mean Corpuscular Hgb Conc. 32.5 g/dL (32.0-36.0); Mean Corpuscular Volume 86.2 fL (80.0-100.0); Monocytes # (auto) 0.7 10 ^3/uL (0-1.3); Monocytes % (auto) 11.3 % (0.0-12.0); Neutrophils # (auto) 3.2 10 ^3/uL (1.6-8.6); Neutrophils % (auto) 49.7 % (37.0-80.0); Nucleated Red Blood Cells % 0.1 %; Red Blood Cells 5.29 10^6/uL (4.5-5.90); Red Cell Distribution Width 14.1 % (11.8-14.3); White Blood Cell 6.5 10^3/uL (4.4-10.8)
[2023-03-08 11:42] LABS: Alanine Aminotransferase 18 U/L (7-40); Albumin 4.4 g/dL (3.2-4.8); Alkaline Phosphatase 158 U/L (46-116); Anion Gap 7 (5-15); Aspartate Aminotransferase 16 U/L (13-40); BUN/Creatinine Ratio 19.1 (10.0-20.0); Bilirubin, Total 0.4 mg/dL (0.2-1.0); Blood Urea Nitrogen 27 mg/dL (9-23); Calcium 9.8 mg/dL (8.5-10.1); Carbon Dioxide 28 mmol/L (20-30); Chloride 107 mmol/L (98-107); Glucose 117 mg/dL (74-106); Sodium 142 mmol/L (136-145); Total Protein 6.7 g/dL (5.7-8.2)
[2023-03-08 12:28] LABS: Lipase 28 U/L (12-53)
[2023-03-08] MEDS ORDERED: HYDROcodone-ACET 7.5/325MG TAB PO ONE (13:30)
[2023-03-08 14:20] VITALS: BP 152/84; PULSE 98; RESP 18; TEMP 98.1; O2SAT 96
== END 2023-03-08 14:21 | disposition home or self-care (01) ==
LOC: ER 09:59
DX: K43.9 Ventral hernia without obstruction or gangrene (principal); I10 Essential (primary) hypertension; E78.5 Hyperlipidemia, unspecified; Z90.89 Acquired absence of other organs
CPT/HCPCS: 36415; 74176; 80053; 83690; 84484; 85025

== ENCOUNTER 2023-09-15 06:56 | Inpatient (IN) | payer OTHER ==
[2023-09-14 12:34] LABS: Urine Bacteria None Seen /hpf (None Seen)
[2023-09-14 12:45] LABS: Basophils # (auto) 0 10 ^3/uL (0-0.2); Basophils % (auto) 0.6 % (0.0-2.0); Eosinophils # (auto) 0.3 10 ^3/uL (0-0.8); Eosinophils % (auto) 3.8 % (0.0-7.0); Hematocrit 45.4 % (41.0-53.0); Lymphocytes # (auto) 1.9 10 ^3/uL (0.4-5.4); Lymphocytes % (auto) 25.2 % (10.0-50.0); Mean Corpuscular Hemoglobin 28.4 pg (28.0-32.0); Monocytes # (auto) 0.9 10 ^3/uL (0-1.3); Monocytes % (auto) 11.5 % (0.0-12.0); Neutrophils # (auto) 4.6 10 ^3/uL (1.6-8.6); Neutrophils % (auto) 58.9 % (37.0-80.0); Red Blood Cells 5.28 10^6/uL (4.5-5.90); Red Cell Distribution Width 13.9 % (11.8-14.3); White Blood Cell 7.7 10^3/uL (4.4-10.8)
[2023-09-14 12:54] LABS: Partial Thromboplastin Time 27.2 SEC (24.5-34.5); Prothrombin Time 10.6 sec (9.3-11.8)
[2023-09-14 13:03] LABS: Alanine Aminotransferase 17 U/L (7-40); Albumin 4.5 g/dL (3.2-4.8); Alkaline Phosphatase 105 U/L (46-116); Anion Gap 6 (5-15); Aspartate Aminotransferase 21 U/L (13-40); Bilirubin, Total 0.7 mg/dL (0.2-1.0); Blood Urea Nitrogen 37 mg/dL (9-23); Calcium 9.9 mg/dL (8.5-10.1); Carbon Dioxide 28 mmol/L (20-30); Chloride 107 mmol/L (98-107); Glucose 125 mg/dL (74-106); Potassium 3.8 mmol/L (3.5-5.1); Sodium 141 mmol/L (136-145); Total Protein 7.2 g/dL (5.7-8.2)
[2023-09-14 13:04] LABS: Urine Blood Negative /uL (Negative); Urine Clarity Clear (Clear); Urine Color Yellow (Yellow); Urine Protein, UAD Negative (Negative); Urine Specific Gravity 1.025 (1.001-1.035); Urine Urobilinogen Normal (Negative); Urine WBC 2 /hpf (0 - 3); Urine pH 5.5 (5.0-9.0)
[~2023-09-15] VITALS: Ht 175.3 cm; Wt 95.0 kg
[~2023-09-15 06:56] MED LIST changes: +AMLO1TAB23 PO; +BICA50TA13 PO; -CIPR-173 PO; +GABA-1308 PO; +LISI20TA56 PO; -MET25T PO; +ONDA-155 PO; -TAMS0.4C36 PO; +TRIA75TA55 PO
[2023-09-15] MEDS ORDERED: KETOROLAC TROMETH 30 MG/ML 1ML VIAL ONE (07:42)
[2023-09-15] MEDS ORDERED: KETAMINE 50mg/ML 1ml syringe ONE (07:42)
[2023-09-15] MEDS ORDERED: DexAMETHasone SOD PHOS 10MG/1ML VIAL INJ ONE ×2 (07:42→09:53)
[2023-09-15] MEDS ORDERED: fentaNYL CITRATE 100 MCG/2 ML VL ONE ×2 (07:42→09:20)
[2023-09-15] MEDS ORDERED: ROCURONIUM 10MG/ML 10ML VIAL IV ONE (07:42)
[2023-09-15] MEDS ORDERED: ONDANSETRON HCL 4 MG/2 ML VIAL ONE ×2 (07:42→09:53)
[2023-09-15] MEDS ORDERED: GLYCOPYRROLATE 0.2 MG/ML 1ML VIAL ONE (07:42)
[2023-09-15] MEDS ORDERED: PROPOFOL 10 MG/ML 20 ML IV ONE ×2 (07:42→09:53)
[2023-09-15] MEDS ORDERED: SUGAMMADEX 200mg/2ml Vial (100MG/ML) IV ONE (07:42)
[2023-09-15] MEDS: ceFAZolin 2 GM/D5W50ml 50 ML IV ONE (08:01)
[2023-09-15] MEDS: BUPIVACAINE 0.25% INJ 50ML VIAL ONE (09:09)
[2023-09-15] MEDS: LIDOCAINE W/ EPINEPHRINE 2% INJ 20ML VIAL ONE (09:09)
[2023-09-15] MEDS: LIDOCAINE 2% JELLY 11ml (GLYDO) ONE (09:10)
[2023-09-15] MEDS: SUCCINYLCHOLINE CHLORIDE 20 MG/ML 10ML VIAL IV ONE (09:11)
[2023-09-15] MEDS ORDERED: MIDAZOLAM HCL 2MG/2ML 2ml VIAL (1mg/ml) ONE (09:20)
[2023-09-15] MEDS ORDERED: MEPERIDINE HCL (50 MG/ML) 1 ML VIAL ONE (09:20)
[2023-09-15] MEDS ORDERED: ePHEDrine SULFATE 50 MG/ML AMP IV PRN (10:00)
[2023-09-15] MEDS ORDERED: MORPHINE SULFATE 4 MG/ML SYR/VIAL IV PRN (10:00)
[2023-09-15] MEDS: ONDANSETRON HCL 4 MG/2 ML VIAL IV ONE (10:00)
[2023-09-15] MEDS ORDERED: LABETALOL HCL 5 MG/ML 4ML SYRINGE IV PRN (10:00)
[2023-09-15] MEDS ORDERED: MIDAZOLAM HCL 2MG/2ML 2ml VIAL (1mg/ml) IV PRN (10:00)
[2023-09-15] MEDS: ceFAZolin 1GM VL ONE (10:01)
[2023-09-15] MEDS: LIDOCAINE 2% (LOCAL ANESTH.) PF 5ml SDV ONE (10:37)
[2023-09-15 10:42] VITALS: O2SAT 98
[2023-09-15] MEDS: HYDROmorphone HCL 2 MG/ML VL/or syr IV PRN (10:54)
[2023-09-15] MEDS ORDERED: ONDANSETRON HCL 4 MG/2 ML VIAL IV PRN (11:00)
[2023-09-15] MEDS ORDERED: D5W/SOD CHL 0.45%/KCL 20MEQ 1,000 ML IV SCH (11:00)
[2023-09-15] MEDS ORDERED: HYDROmorphone HCL 2 MG/ML VL/or syr IV PRN (11:00)
[2023-09-15] MEDS ORDERED: NITROGLYCERIN 0.4 MG SL TAB SL PRN (12:30)
[2023-09-15] MEDS ORDERED: MORPHINE SULFATE INJ 2 MG/ml SYRG IV PRN (12:30)
[2023-09-15] MEDS: D5W/SOD CHL 0.45%/KCL 20MEQ 1,000 ML IV SCH (12:40)
[2023-09-15] MEDS ORDERED: ceFAZolin 2 GM/D5W50ml 50 ML IV SCH (14:00)
[2023-09-15 15:20] VITALS: BP 145/96; PULSE 74; RESP 16; TEMP 97.6; O2SAT 97
[2023-09-15 16:28] VITALS: BP 145/96; PULSE 74; RESP 16; TEMP 97.6; O2SAT 97
[2023-09-15 16:31] VITALS: BP 143/90; PULSE 74; RESP 20; TEMP 98; O2SAT 96
[2023-09-15] MEDS: ceFAZolin 2 GM/D5W50ml 50 ML IV SCH (18:58)
[2023-09-15 20:00] VITALS: BP 155/9; PULSE 79; PULSE 89; RESP 20; TEMP 98.6; O2SAT 92
[2023-09-15 21:00] VITALS: BP 155/98; PULSE 89; RESP 20; TEMP 98.6; O2SAT 92
[2023-09-16] VITALS (8 sets, daily range): BP systolic 121–164; BP diastolic 77–102; PULSE 76–103; RESP 17–20; TEMP 98–98.7; O2SAT 90–96
[2023-09-16 06:59] LABS: Basophils # (auto) 0 10 ^3/uL (0-0.2); Basophils % (auto) 0.2 % (0.0-2.0); Eosinophils # (auto) 0 10 ^3/uL (0-0.8); Eosinophils % (auto) 0.1 % (0.0-7.0); Hematocrit 42.9 % (41.0-53.0); Hemoglobin 14.1 g/dL (13.5-17.5); Lymphocytes # (auto) 1.4 10 ^3/uL (0.4-5.4); Lymphocytes % (auto) 12.5 % (10.0-50.0); Mean Corpuscular Volume 84.9 fL (80.0-100.0); Monocytes # (auto) 1.2 10 ^3/uL (0-1.3); Monocytes % (auto) 10.8 % (0.0-12.0); Neutrophils # (auto) 8.4 10 ^3/uL (1.6-8.6); Neutrophils % (auto) 76.4 % (37.0-80.0); Red Blood Cells 5.05 10^6/uL (4.5-5.90); Red Cell Distribution Width 13.8 % (11.8-14.3)
[2023-09-16 07:17] LABS: Alanine Aminotransferase 13 U/L (7-40); Alkaline Phosphatase 97 U/L (46-116); Anion Gap 4 (5-15); BUN/Creatinine Ratio 19.2 (10.0-20.0); Blood Urea Nitrogen 20 mg/dL (9-23); Calcium 9.5 mg/dL (8.5-10.1); Carbon Dioxide 26 mmol/L (20-30); Chloride 109 mmol/L (98-107); Glucose 122 mg/dL (74-106); Potassium 4.3 mmol/L (3.5-5.1); Sodium 139 mmol/L (136-145)
[2023-09-16 07:18] LABS: Aspartate Aminotransferase 16 U/L (13-40)
[2023-09-16 07:19] LABS: Bilirubin, Total 0.5 mg/dL (0.2-1.0); Total Protein 6.5 g/dL (5.7-8.2)
[2023-09-16] MEDS: PANTOPRAZOLE 40 MG/10 ML VIAL INJ IV SCH (10:29)
[2023-09-16] MEDS: hydrALAZINE HCL 20 MG/ML VL IV PRN (12:11)
[2023-09-16] MEDS ORDERED: HYDROmorphone HCL 2 MG/ML VL/or syr IV PRN (14:30)
[2023-09-16] MEDS: amLODIPine BESYLATE 5 MG TAB PO ONE (15:44)
[2023-09-16] MEDS: LISINOPRIL 5 MG TAB PO ONE (15:45)
[2023-09-17 01:00] VITALS: BP 115/69; PULSE 95; RESP 20; TEMP 99.1; O2SAT 97
[2023-09-17 05:00] VITALS: BP 123/94; PULSE 96; RESP 16; TEMP 98.9; O2SAT 90
[2023-09-17 07:11] LABS: Alkaline Phosphatase 93 U/L (46-116); Anion Gap 5 (5-15); Aspartate Aminotransferase 10 U/L (13-40); BUN/Creatinine Ratio 11.7 (10.0-20.0); Blood Urea Nitrogen 12 mg/dL (9-23); Calcium 9.8 mg/dL (8.5-10.1); Carbon Dioxide 26 mmol/L (20-30); Chloride 107 mmol/L (98-107); Glucose 114 mg/dL (74-106); Sodium 138 mmol/L (136-145)
[2023-09-17 07:12] LABS: Bilirubin, Total 0.5 mg/dL (0.2-1.0); Total Protein 6.7 g/dL (5.7-8.2)
[2023-09-17 07:13] LABS: Alanine Aminotransferase < 9 U/L (7-40)
[2023-09-17 09:00] VITALS: BP 129/88; PULSE 82; RESP 17; TEMP 97.9; O2SAT 91
[2023-09-17] MEDS: amLODIPine BESYLATE 5 MG TAB PO SCH (10:15)
[2023-09-17] MEDS: LISINOPRIL 5 MG TAB PO SCH (10:15)
[2023-09-17 13:00] VITALS: BP 144/99; PULSE 81; RESP 15; TEMP 97.8; O2SAT 91
[2023-09-17 17:00] VITALS: BP 130/84; PULSE 84; RESP 18; TEMP 97.8; O2SAT 93
[2023-09-17 21:00] VITALS: BP_SYST 133; BP_SYST 98; BP_DIAS 67; BP_DIAS 93; PULSE 153; RESP 17; TEMP 98.7; O2SAT 100; O2SAT 93
[2023-09-18 01:00] VITALS: BP 107/70; PULSE 86; RESP 17; TEMP 98.1; O2SAT 93
[2023-09-18 05:00] VITALS: BP 119/81; PULSE 90; RESP 19; TEMP 97; O2SAT 97
[2023-09-18 09:00] VITALS: BP 148/75; PULSE 51; RESP 20; TEMP 98.7; O2SAT 92
[2023-09-18 12:52] VITALS: BP 133/63; PULSE 89; RESP 20; TEMP 98.6; O2SAT 91
[2023-09-18] MEDS ORDERED: DOCU-265 PO (13:07)
[2023-09-18] MEDS ORDERED: CEPH250C PO (13:07)
[2023-09-18] MEDS ORDERED: NAP500T PO (13:07)
== END 2023-09-18 16:40 | disposition home or self-care (01) | DRG 355 ==
LOC: SUR 06:56 → TELE 12:28 → TELE-WESTW 15:19 → WEST WING 09-17 02:14
PROVIDERS: ADMIT Internal Medicine; ATTEND Nurse Practitioner Acute Care
PROC: 0WUF0JZ Supplement Abdominal Wall with Synthetic Substitute, Open Approach (ICD-10-PCS; principal; 2023-09-15 09:22)
DX: K43.9 Ventral hernia without obstruction or gangrene (principal); I12.9 Hypertensive chronic kidney disease with stage 1 through stage 4 chronic kidney disease, or unspecified chronic kidney disease; E66.9 Obesity, unspecified; F17.200 Nicotine dependence, unspecified, uncomplicated; N18.31 Chronic kidney disease, stage 3a; K66.0 Peritoneal adhesions (postprocedural) (postinfection); Z93.3 Colostomy status; Z85.46 Personal history of malignant neoplasm of prostate; Z85.038 Personal history of other malignant neoplasm of large intestine; Z68.30 Body mass index [BMI] 30.0-30.9, adult
CPT/HCPCS: 36415; 80048; 80053; 80061; 80076; 81001; 84153; 84403; 85025; 85610; 85730; 86850; 86900; 86901; 88302; C9113; G0378; J0330; J0690; J1100; J1885; J2001; J2250; J2405; J2704; J3490

== ENCOUNTER → 2023-11-03 | Outpatient (CLI) | payer OTHER ==
[~2023-11-03] MED LIST changes: +CEPH250C PO; +DOCU-265 PO; +NAP500T PO
[2023-11-03 10:46] LABS: Urine Bacteria None Seen /hpf (None Seen)
[2023-11-03 10:51] LABS: Basophils # (auto) 0.1 10 ^3/uL (0-0.2); Basophils % (auto) 0.8 % (0.0-2.0); Eosinophils # (auto) 0.3 10 ^3/uL (0-0.8); Eosinophils % (auto) 4.6 % (0.0-7.0); Hematocrit 44.1 % (41.0-53.0); Hemoglobin 14.6 g/dL (13.5-17.5); Lymphocytes # (auto) 1.7 10 ^3/uL (0.4-5.4); Lymphocytes % (auto) 26.4 % (10.0-50.0); Mean Corpuscular Hemoglobin 28.3 pg (28.0-32.0); Mean Corpuscular Hgb Conc. 33.2 g/dL (32.0-36.0); Mean Corpuscular Volume 85.2 fL (80.0-100.0); Monocytes # (auto) 0.6 10 ^3/uL (0-1.3); Monocytes % (auto) 8.5 % (0.0-12.0); Neutrophils # (auto) 3.9 10 ^3/uL (1.6-8.6); Neutrophils % (auto) 59.7 % (37.0-80.0); Nucleated Red Blood Cells % 0.1 %; Red Blood Cells 5.18 10^6/uL (4.5-5.90); White Blood Cell 6.6 10^3/uL (4.4-10.8)
[2023-11-03 10:56] LABS: Urine Blood Negative /uL (Negative); Urine Clarity Clear (Clear); Urine Color Light-Yellow (Yellow); Urine Protein, UAD TRACE (Negative); Urine Specific Gravity 1.013 (1.001-1.035); Urine Urobilinogen Normal (Negative); Urine WBC <1 /hpf (0 - 3)
[2023-11-03 12:01] LABS: Alanine Aminotransferase 10 U/L (7-40); Albumin 4.2 g/dL (3.2-4.8); Alkaline Phosphatase 123 U/L (46-116); Anion Gap 8 (5-15); Aspartate Aminotransferase < 8 U/L (13-40); BUN/Creatinine Ratio 12.7 (10.0-20.0); Blood Urea Nitrogen 16 mg/dL (9-23); Calcium 9.9 mg/dL (8.7-10.4); Carbon Dioxide 27 mmol/L (20-30); Chloride 109 mmol/L (98-107); Cholesterol 173 mg/dL (< 200); Glucose 163 mg/dL (74-106); HDL Cholesterol 38 mg/dL (40-59); LDL Cholesterol 123 mg/dL (< 100); Sodium 144 mmol/L (136-145); Triglycerides 146 mg/dL (< 150)
[2023-11-03 12:02] LABS: Bilirubin, Total 0.4 mg/dL (0.2-1.0); Total Protein 6.8 g/dL (5.7-8.2)
== END | disposition home or self-care (01) ==
LOC: LAB 10:29
PROVIDERS: ATTEND Internal Medicine
DX: Z13.1 Encounter for screening for diabetes mellitus (principal); Z00.01 Encounter for general adult medical examination with abnormal findings; I10 Essential (primary) hypertension; K43.9 Ventral hernia without obstruction or gangrene; C61 Malignant neoplasm of prostate
CPT/HCPCS: 36415; 80053; 80061; 81001; 83036; 84439; 84443; 85025

== ENCOUNTER → 2024-02-07 | Outpatient (CLI) | payer OTHER ==
[~2024-02-07] MED LIST changes: -BICA50TA13 PO; +BICA50TA42 PO
[2024-02-07 12:01] LABS: Anion Gap 5 (5-15); Carbon Dioxide 28 mmol/L (20-31); Chloride 108 mmol/L (98-107); Potassium 4.3 mmol/L (3.5-5.1); Sodium 141 mmol/L (136-145)
[2024-02-07 12:03] LABS: Calcium 10.1 mg/dL (8.7-10.4)
[2024-02-07 12:07] LABS: Cholesterol 150 mg/dL (< 200); Glucose 97 mg/dL (74-106)
[2024-02-07 12:08] LABS: BUN/Creatinine Ratio 13.3 (10.0-20.0); Blood Urea Nitrogen 16 mg/dL (9-23); LDL Cholesterol 100 mg/dL (< 100); Triglycerides 80 mg/dL (< 150)
[2024-02-07 12:09] LABS: HDL Cholesterol 39 mg/dL (40-59)
== END | disposition home or self-care (01) ==
LOC: LAB 10:47
PROVIDERS: ATTEND Internal Medicine
DX: I12.9 Hypertensive chronic kidney disease with stage 1 through stage 4 chronic kidney disease, or unspecified chronic kidney disease (principal); N18.2 Chronic kidney disease, stage 2 (mild); E78.2 Mixed hyperlipidemia; R73.03 Prediabetes
CPT/HCPCS: 36415; 80048; 80061; 83036

== ENCOUNTER 2024-03-13 13:41 | Inpatient (IN) | payer OTHER ==
[~2024-03-13] VITALS: Ht 182.9 cm; Wt 96.0 kg
--- NOTE | 2024-03-13 14:50 | DVH ---
CT ABDOMEN AND PELVIS WITHOUT CONTRAST CLINICAL HISTORY: abd pain TECHNIQUE: Multiple contiguous axial images of the abdomen and pelvis without intravenous contrast. The images were reformatted degenerate coronal and sagittal reconstructions. All CT scans at this medical facility are performed using dose modulation techniques as appropriate t o a performed exam including the following:Automated exposure control was utilized; adjustment of the MA and/or KV according to patient size; and use of iterative reconstruction technique. Radiation Dose Information: CT Dose: CTDI volume is 23 mGy. Dose-length product is 1269 mGy*cm Comparison: CT CT AB PEL WO CON-NO ORAL OR IV on DOS: 03/08/23, CT CT AB PEL WITH ORAL CON ONLY on DO S: 07/22/22 FINDINGS: Evaluation of the abdomen and pelvis is limited without intravenous contrast. There is redemonstration of a right pelvic kidney with multiple renal cysts. The left kidney is in th e left renal fossa. There is no evidence of nephrolithiasis or hydronephrosis. There are multiple scattered hepatic cysts, the largest measuring 8.9 cm in the right hepatic lobe. The gallbladder, pancreas, adrenal glands, and spleen appear within normal limits. There is no gross evidence of abdominal lymphadenopathy. There is no free fluid or free air. Again seen is a left lower quadrant colostomy with peristomal herniation of intra-abdominal fat and l arge bowel loops. There is also a midline ventral hernia containing small bowel loops and intra-abdom inal fat. The small and large bowel loops demonstrate normal caliber without evidence of bowel obstru ction. Air intermixed with stool is seen throughout the colon. There are anastomotic sutures in small bowel loops which are herniating into the ventral hernia. The stomach grossly appears unremarkable. The abdominal aorta and IVC appear within normal limits. The bladder is decompressed limiting evaluation. Pelvic organ appears within normal limits. There is no gross evidence of a pelvic mass. There is no free fluid collection. Lung bases are clear. There is no acute osseous abnormality. IMPRESSION: 1. Midline ventral hernia containing small bowel loops and intra-abdominal fat. There are anastomotic sutures in the small bowel loop which is herniating into the ventral hernia. There are no dilated sm all or large bowel loops. There is no evidence of bowel obstruction. 2. Redemonstration of left lower quadrant colostomy with peristomal herniation of intra-abdominal fat and large bowel loops. Air intermixed with stool is seen throughout the colon. 3. Right pelvic kidney with multiple cysts. 4. Multiple scattered hepatic cysts, the largest right hepatic lobe measuring 8.9 cm. HS:Y
[2024-03-13 16:39] LABS: Basophils # (auto) 0 10 ^3/uL (0-0.2); Basophils % (auto) 0.4 % (0.0-2.0); Eosinophils # (auto) 0.2 10 ^3/uL (0-0.8); Eosinophils % (auto) 2.7 % (0.0-7.0); Hematocrit 46.9 % (41.0-53.0); Hemoglobin 15.3 g/dL (13.5-17.5); Lymphocytes # (auto) 1.9 10 ^3/uL (0.4-5.4); Lymphocytes % (auto) 21.9 % (10.0-50.0); Mean Corpuscular Hemoglobin 27.9 pg (28.0-32.0); Mean Corpuscular Hgb Conc. 32.7 g/dL (32.0-36.0); Mean Corpuscular Volume 85.4 fL (80.0-100.0); Monocytes # (auto) 0.8 10 ^3/uL (0-1.3); Monocytes % (auto) 9.8 % (0.0-12.0); Neutrophils # (auto) 5.7 10 ^3/uL (1.6-8.6); Neutrophils % (auto) 65.2 % (37.0-80.0); Nucleated Red Blood Cells % 0.1 %; Platelet Count (auto) 346 10^3/uL (140-450); Red Blood Cells 5.49 10^6/uL (4.5-5.90); Red Cell Distribution Width 14.9 % (11.8-14.3); White Blood Cell 8.7 10^3/uL (4.4-10.8)
[2024-03-13 16:47] LABS: Urine Bacteria None Seen /hpf (None Seen)
[2024-03-13 16:58] LABS: Alanine Aminotransferase 13 U/L (7-40); Albumin 4.2 g/dL (3.2-4.8); Alkaline Phosphatase 113 U/L (46-116); Anion Gap 7 (5-15); Aspartate Aminotransferase 10 U/L (13-40); BUN/Creatinine Ratio 20.7 (10.0-20.0); Bilirubin, Total 0.3 mg/dL (0.2-1.0); Blood Urea Nitrogen 28 mg/dL (9-23); Calcium 10.4 mg/dL (8.7-10.4); Carbon Dioxide 27 mmol/L (20-31); Chloride 110 mmol/L (98-107); Glucose 119 mg/dL (74-106); Potassium 4.6 mmol/L (3.5-5.1); Sodium 144 mmol/L (136-145); Total Protein 6.5 g/dL (5.7-8.2)
[2024-03-13 17:09] LABS: Urine Blood Negative /uL (Negative); Urine Clarity Clear (Clear); Urine Color Yellow (Yellow); Urine Mucus FEW (None Seen); Urine Protein, UAD TRACE (Negative); Urine Specific Gravity 1.025 (1.001-1.035); Urine Urobilinogen Normal (Negative); Urine WBC 1 /hpf (0 - 3); Urine pH 5.5 (5.0-9.0)
--- NOTE | 2024-03-13 17:42 | ED.PDOC ---
History of Present Illness HPI Comments 69-year-old male patient presented with complaints of right lower quadrant pain for one week associated with swelling that protrudes on coughing. He also complaint of urinary frequency, mentioned he takes "water pills" he also complained of constipation but takes laxative and has been passing stool and gas. He denied any nausea, vomiting, diarrhea, melena, hematochezia, hematemesis, chest pain, shortness of breath cough, Past medical history Hypertension, CKD stage IIIA, obesity history of colon cancer status post colectomy and colostomy, prostate cancer, mentioned hernia Past surgical history Colostomy colectomy done in 1994, ventral hernia repair 2 times Social history Positive for smoking, denied alcohol, marijuana, any other drugs intake Allergic history No known allergies Family history Prostate cancer in brother, breast cancer in mother and daughter Medication history Docusate, naproxen, amlodipine, lisinopril, triamterene, gabapentin, distention, bicalutamide Review of system As addressed in the HPI Examination General Appearance: Alert, Oriented X3, Cooperative, No acute distress HEENT: EOMI Respiratory: Clear to auscultation, Normal air movement Cardiovascular: Regular rate, Normal S1, Normal S2 Abdominal: Scar annmarie in the center of the abdomen, right lower quadrant swelling 5 X 5 cm that protrudes on coughing, right lower quadrant tenderness, colostomy bag seen in the left side of the lower abdomen Neuro: Normal speech and tone Chief Complaint: Abdominal Pain Time Seen by MD: 14:10 Allergies: Coded Allergies: NO KNOWN ALLERGIES (Unverified , 07/10/22) Home Meds Active Scripts Naproxen (NAPROSYN TABLET) 500 Mg Tb, 1 TAB PO BID for 10 Days, #20 TAB 1 Refill Prov:SILVANA ZAPATA DO 09/18/23 Docusate Sodium (Docusate Sodium) 100 Mg Cap, 100 MG PO BID for 5 Days, #10 CAP Prov:SILVANA ZAPATA DO 09/18/23 Cephalexin (KEFLEX CAPSULE) 250 Mg Cp, 2 CAP PO BID for 5 Days, #20 CAP Prov:SILVANA ZAPATA DO 09/18/23 Reported Medications Bicalutamide (Bicalutamide) 50 Mg Tab, 50 MG PO, TAB 09/14/23 Ondansetron HCl (Ondansetron) 4 Mg Tab, 4 MG PO PRN, TAB 09/14/23 Gabapentin (Gabapentin) 100 Mg Cap, 100 MG PO DAILY, CAP 09/14/23 Triamterene & Hydrochlorothiaz (Maxzide) 1 Tab Tab, 1 TAB PO DAILY, TAB 09/14/23 Lisinopril (Lisinopril) 20 Mg Tab, 20 MG PO DAILY, TAB 09/14/23 Amlodipine Besylate (Amlodipine Besylate) 10 Mg Tab, 10 MG PO DAILY, TAB 09/14/23 Mode of Arrival: Ambulatory Was a procedure done? Was a procedure done?: No Differential Dx Considerations may include: Ascites, Constipation ,Hematoma, Lipoma, Lymphadenitis, Obstructive uropathy, Pseudoaneurysm, Tumor, ventral hernia Acute myocardial infarction (AMI), Acute pulmonary embolism, Heart failure, Myocarditis, Sepsis X-Ray, Labs, Meds, VS Vital Signs Date Time Temp Pulse Resp B/P (MAP) Pulse Ox O2 Delivery O2 Flow Rate FiO2 03/13/24 14:07 97.8 52 16 158/82 (107) 95 Lab Test 03/13/24 17:35 03/13/24 16:46 03/13/24 15:56 Range/Units Troponin I High Sensitivity 57 *H 58 *H </=54 ng/L Urine Color Yellow Yellow Urine Clarity Clear Clear Urine pH 5.5 5.0-9.0 Urine Specific [place] 1.025 1.001-1.035 Urine Protein Trace H Negative Urine Ketones Negative Negative Urine Blood Negative Negative /uL Urine Nitrite Negative Negative Urine Bilirubin Negative Negative Urine Urobilinogen Normal Negative mg/dL Urine Leukocyte Esterase Negative Negative /uL Urine RBC 2 0 - 3 /hpf Urine WBC 1 0 - 3 /hpf Urine Squamous Epithelial Cells Few <5 /hpf Urine Bacteria None seen None Seen /hpf Urine Mucus Few None Seen Urine Glucose Normal Normal mg/dL White Blood Count 8.7 4.4-10.8 10^3/uL Red Blood Count 5.49 4.5-5.90 10^6/uL Hemoglobin 15.3 13.5-17.5 g/dL Hematocrit 46.9 41.0-53.0 % Mean Corpuscular Volume 85.4 80.0-100.0 fL Mean Corpuscular Hemoglobin 27.9 L 28.0-32.0 pg Mean Corpuscular Hemoglobin Concent 32.7 32.0-36.0 g/dL Red Cell Distribution Width 14.9 H 11.8-14.3 % Platelet Count 346 140-450 10^3/uL Mean Platelet Volume 8.1 6.9-10.8 fL Neutrophils (%) (Auto) 65.2 37.0-80.0 % Lymphocytes (%) (Auto) 21.9 10.0-50.0 % Monocytes (%) (Auto) 9.8 0.0-12.0 % Eosinophils (%) (Auto) 2.7 0.0-7.0 % Basophils (%) (Auto) 0.4 0.0-2.0 % Neutrophils # (Auto) 5.7 1.6-8.6 10 ^3/uL Lymphocytes # (Auto) 1.9 0.4-5.4 10 ^3/uL Monocytes # (Auto) 0.8 0-1.3 10 ^3/uL Eosinophils # (Auto) 0.2 0-0.8 10 ^3/uL Basophils # (Auto) 0 0-0.2 10 ^3/uL Nucleated Red Blood Cells 0.1 % Sodium Level 144 136-145 mmol/L Potassium Level 4.6 3.5-5.1 mmol/L Chloride Level 110 H 98-107 mmol/L Carbon Dioxide Level 27 20-31 mmol/L Anion Gap 7 5-15 Blood Urea Nitrogen 28 H 9-23 mg/dL Creatinine 1.35 H 0.700-1.30 mg/dL Glomerular Filtration Rate Calc 56 >90 mL/min BUN/Creatinine Ratio 20.7 H 10.0-20.0 Serum Glucose 119 H 74-106 mg/dL Lactic Acid Level 1.9 0.4-2.0 mmol/L Calcium Level 10.4 8.7-10.4 mg/dL Total Bilirubin 0.3 0.2-1.0 mg/dL Aspartate Amino Transferase (AST) 10 L 13-40 U/L Alanine Aminotransferase (ALT) 13 7-40 U/L Alkaline Phosphatase 113 46-116 U/L Total Protein 6.5 5.7-8.2 g/dL Albumin 4.2 3.2-4.8 g/dL Lipase 31 12-53 U/L Current Medications Medications (Trade) Dose Ordered Sig/Agnes Route Start Time Stop Time Status Last Admin Aspirin 162 mg ONCE ONCE PO 03/13/24 18:15 03/13/24 18:25 DC 03/13/24 22:11 Time of 1ST Reevaluation: 17:42 Reevaluation 1ST: Unchanged Patient Education/Counseling: Diagnosis, Treatment Family Education/Counseling: No Family Present Comments MDM Patient presented with the right lower quadrant pain.workup was initiated. Patient had elevated troponins CT abdomen/pelvis showed 1. Midline ventral hernia containing small bowel loops and intra-abdominal fat. There are anastomotic sutures in the small bowel loop which is herniating into the ventral hernia. There are no dilated small or large bowel loops. There is no evidence of bowel obstruction. 2. Redemonstration of left lower quadrant colostomy with peristomal herniation of intra-abdominal fat and large bowel loops. Air intermixed with stool is seen throughout the colon. 3. Right pelvic kidney with multiple cysts. 4. Multiple scattered hepatic cysts, the largest right hepatic lobe measuring 8.9 cm. Patient has been observed in the ED adequate length of time to insure improvement/stability. patient was admitted to the medicine team for further evaluation and treatment of their presentation. All the reports of any imaging studies that were ordered by myself were reviewed by myself. Departure 1 Departure Time of Disposition: 17:42 Impression: Primary Impression: Elevated troponin Additional Impression: Ventral hernia Disposition: 09 ADMITTED INPATIENT Admit to: Tele Condition: Guarded Critical Care Note Critical Care Time?: No Heart Score Heart Score: Heart Score Response (Comments) Value History N/A 0 EKG N/A 0 Age >65 2 Risk Factors 1 or 2 risk factors 1 Troponin 1-2 x's Normal limit 1 Total 4 HORTENCIA ANDERSON RESIDENT Mar 13, 2024 17:42
[2024-03-13 17:50] LABS: Lipase 31 U/L (12-53)
[2024-03-13] MEDS ORDERED: DOCUSATE SOD 100 MG CAP PO PRN (18:15)
[2024-03-13] MEDS ORDERED: MORPHINE SULFATE INJ 2 MG/ml SYRG IV PRN ×2 (18:15→19:30)
[2024-03-13] MEDS ORDERED: ACETAMINOPHEN 325 MG TAB PO PRN (18:15)
[2024-03-13] MEDS ORDERED: HYDROcodone-ACET 5/325MG TAB PO PRN (18:15)
[2024-03-13] MEDS ORDERED: ONDANSETRON HCL 4 MG/2 ML VIAL IV PRN (18:15)
[2024-03-13] MEDS ORDERED: NITROGLYCERIN 0.4 MG SL TAB SL PRN (19:30)
--- NOTE | 2024-03-13 19:33 | DVHHP2 ---
History of Present Illness Reason for Visit: Elevated troponin History of Present Illness The patient is a 69-year-old male past medical history of hernia, hypertension, CKD, colon cancer, and prostate cancer who presented to [facility] ED with complaint of right lower quadrant abdominal pain for the past 1 week. Patient reports symptoms progressively get worse with abdominal swelling that protrudes due to persistent cough and urinary frequency. Patient was seen and evaluated in the ED, laboratory data shows WBC 8.7, platelets 346, sodium 144, potassium 4.6, BUN 28, creatinine 1.35, glucose 110, troponin 58, AST 10, ALT 13, blood pressure 158/82, heart rate 52, temperature 97.8 F, O2 saturation 95% on room air. Abdomen/pelvis CT revealing midline ventral hernia containing small bowel loops and intra-abdominal fat; there anastomotic sutures in the small bowel loops which is herniating into the ventral hernia; there are no dilated small or large bowel loops, there is no evidence of bowel obstruction; Right pelvic kidney with multiple cysts; multiple scattered hepatic cysts, the largest right hepatic lobe measuring 8.9 cm. Please see medication orders section in the computer. On my assessment, patient denied chest pain, no headache, no dizziness, no diaphoresis, no shortness of breath, no diarrhea, melena, no nausea, no vomiting, no fever, no chills. Patient was admitted for further evaluation and medical management. Past Medical History Hernia, Hypertension, CKD stage IIIA, Colon cancer, Prostate cancer, Past Surgical History Status post colectomy and colostomy done in 1994, Ventral hernia repair 2 times Family History Reviewed, noncontributory to the management of this case. Past Social History The patient lives at home, denies smoking, alcohol or illicit drugs abuse. Review of Systems Constitutional: Yes: Weakness; No: Fever, Chills, Sweats, Malaise, Other Eyes: No: Pain, Vision change, Conjunctivae inflammation, Eyelid inflammation, Other, Redness ENT: No: Ear pain, Ear discharge, Nose pain, Nose discharge, Nose congestion, Mouth pain, Mouth swelling, Throat pain, Throat swelling, Other Respiratory: No: Cough, Dry, Shortness of breath, SOB with excertion, Wheezing, Hemoptysis, Pleuritic Pain, Sputum, Wheezing, Other Cardiovascular: No: Chest Pain, Palpitations, Orthopnea, Paroxysmal Noc. Dyspnea, Edema, Lt Headedness, Other Gastrointestinal: Abdominal Pain, Other (Right lower quadrant swelling 5 X 5 cm that protrudes on coughing, colostomy bag seen in the left side of the lower abdomen.); No: Nausea, Vomiting, Diarrhea, Constipation, Melena, Hematochezia Genitourinary: No Dysuria; Frequency; No Incontinence, No Hematuria, No Retention, No Other Musculoskeletal: No: other, neck pain, shoulder pain, arm pain, back pain, hand pain, leg pain, foot pain Skin: Other (Scar annmarie in the center of the abdomen); No: Rash, Lesions, Jaundice, Bruising Neurological: No: Weakness, Numbness, Incoordination, Change in speech, Confus ion, Seizures, Other Allergies: Coded Allergies: NO KNOWN ALLERGIES (Unverified , 07/10/22) Medications Current Medications Medications Dose Ordered Sig/Agnes Route Start Time Stop Time Status Last Admin Dose Admin Lisinopril 20 mg DAILY PO 03/14/24 10:00 Hydralazine HCl 10 mg Q6HP PRN IV 03/13/24 18:15 Aspirin 81 mg DAILY PO 03/14/24 10:00 Sodium Chloride 10 ml Q8HR IV 03/13/24 22:00 Acetaminophen/ Hydrocodone Bitart 1 tab Q4HP PRN PO 03/13/24 18:15 Ondansetron HCl 4 mg Q4HP PRN IV 03/13/24 18:15 Docusate Sodium 100 mg BIDPRN PRN PO 03/13/24 18:15 Acetaminophen 650 mg Q6HP PRN PO 03/13/24 18:15 Morphine Sulfate 2 mg Q4HPRN PRN IV 03/13/24 18:15 Exam Vital Signs Vital Signs Date Time Temp Pulse Resp B/P (MAP) Pulse Ox O2 Delivery O2 Flow Rate FiO2 03/13/24 14:07 97.8 52 16 158/82 (107) 95 General Appearance: Alert, Oriented X3, Cooperative, No acute distress HEENT: Atraumatic, PERRLA, EOMI, Mucous membr. moist/pink Respiratory: Clear to auscultation, Normal air movement Cardiovascular: Regular rate, Normal S1, Normal S2, No murmurs Abdominal: Normal bowel sounds, Soft, No tenderness, No hepatospenomegaly, No masses, Other (Right lower quadrant tenderness.) Extremities: No clubbing, No cyanosis, No edema, Normal pulses, No tendern ess/swelling Skin: No rashes, No breakdown, No significant lesion Neuro: Normal speech, Normal tone, Sensation intact, Cranial nerves 3-12 NL, Reflexes 2+, Other (Generalized weakness) Psych/Mental Status: Mental status NL, Mood NL Labs/Xrays Labs Test 03/13/24 17:35 03/13/24 16:46 03/13/24 15:56 Range/Units Troponin I High Sensitivity 57 *H </=54 ng/L Urine Color Yellow Yellow Urine Clarity Clear Clear Urine pH 5.5 5.0-9.0 Urine Specific [place] 1.025 1.001-1.035 Urine Protein Trace H Negative Urine Ketones Negative Negative Urine Blood Negative Negative /uL Urine Nitrite Negative Negative Urine Bilirubin Negative Negative Urine Urobilinogen Normal Negative mg/dL Urine Leukocyte Esterase Negative Negative /uL Urine RBC 2 0 - 3 /hpf Urine WBC 1 0 - 3 /hpf Urine Squamous Epithelial Cells Few <5 /hpf Urine Bacteria None seen None Seen /hpf Urine Mucus Few None Seen Urine Glucose Normal Normal mg/dL White Blood Count 8.7 4.4-10.8 10^3/uL Red Blood Count 5.49 4.5-5.90 10^6/uL Hemoglobin 15.3 13.5-17.5 g/dL Hematocrit 46.9 41.0-53.0 % Mean Corpuscular Volume 85.4 80.0-100.0 fL Mean Corpuscular Hemoglobin 27.9 L 28.0-32.0 pg Mean Corpuscular Hemoglobin Concent 32.7 32.0-36.0 g/dL Red Cell Distribution Width 14.9 H 11.8-14.3 % Platelet Count 346 140-450 10^3/uL Mean Platelet Volume 8.1 6.9-10.8 fL Neutrophils (%) (Auto) 65.2 37.0-80.0 % Lymphocytes (%) (Auto) 21.9 10.0-50.0 % Monocytes (%) (Auto) 9.8 0.0-12.0 % Eosinophils (%) (Auto) 2.7 0.0-7.0 % Basophils (%) (Auto) 0.4 0.0-2.0 % Neutrophils # (Auto) 5.7 1.6-8.6 10 ^3/uL Lymphocytes # (Auto) 1.9 0.4-5.4 10 ^3/uL Monocytes # (Auto) 0.8 0-1.3 10 ^3/uL Eosinophils # (Auto) 0.2 0-0.8 10 ^3/uL Basophils # (Auto) 0 0-0.2 10 ^3/uL Nucleated Red Blood Cells 0.1 % Sodium Level 144 136-145 mmol/L Potassium Level 4.6 3.5-5.1 mmol/L Chloride Level 110 H 98-107 mmol/L Carbon Dioxide Level 27 20-31 mmol/L Anion Gap 7 5-15 Blood Urea Nitrogen 28 H 9-23 mg/dL Creatinine 1.35 H 0.700-1.30 mg/dL Glomerular Filtration Rate Calc 56 >90 mL/min BUN/Creatinine Ratio 20.7 H 10.0-20.0 Serum Glucose 119 H 74-106 mg/dL Lactic Acid Level 1.9 0.4-2.0 mmol/L Calcium Level 10.4 8.7-10.4 mg/dL Total Bilirubin 0.3 0.2-1.0 mg/dL Aspartate Amino Transferase (AST) 10 L 13-40 U/L Alanine Aminotransferase (ALT) 13 7-40 U/L Alkaline Phosphatase 113 46-116 U/L Total Protein 6.5 5.7-8.2 g/dL Albumin 4.2 3.2-4.8 g/dL Lipase 31 12-53 U/L PATIENT: FLORECITA MAHAJAN JACCT: [id number] UNIT: [id number] : 1955 LOC: ER ROOM / BED: / AGE / SEX: 69 / M ADM STATUS: REG ER SERVICE [id number] ORDERING PHYSICIAN: JOHN SALAZAR DO PROCEDURE(s): ABPL - CT AB PEL WO CON-NO ORAL OR IV REASON: abd pain ORDER NUMBER(s): [id number], ACCESSION NUMBER(s): [id number] CT ABDOMEN AND PELVIS WITHOUT CONTRAST CLINICAL HISTORY: abd pain TECHNIQUE: Multiple contiguous axial images of the abdomen and pelvis without intravenous contrast. The images were reformatted degenerate coronal and sagittal reconstructions. All CT scans at this medical facility are performed using dose modulation techniques as appropriate to a performed exam including the following:Automated exposure control was utilized; adjustment of the MA and/or KV according to patient size; and use of iterative reconstruction technique. Radiation Dose Information: CT Dose: CTDI volume is 23 mGy. Dose-length product is 1269 mGy*cm Comparison: CT CT AB PEL WO CON-NO ORAL OR IV on DOS: 03/08/23, CT CT AB PEL WITH ORAL CON ONLY on DOS: 07/22/22 FINDINGS: Evaluation of the abdomen and pelvis is limited without intravenous contrast. There is re-demonstration of a right pelvic kidney with multiple renal cysts. The left kidney is in the left renal fossa. There is no evidence of nephrolithiasis or hydronephrosis. There are multiple scattered hepatic cysts, the largest measuring 8.9 cm in the right hepatic lobe. The gallbladder, pancreas, adrenal glands, and spleen appear within normal limits. There is no gross evidence of abdominal lymphadenopathy. There is no free fluid or free air. Again seen is a left lower quadrant colostomy with peristomal herniation of intra-abdominal fat and large bowel loops. There is also a midline ventral hernia containing small bowel loops and intra-abdominal fat. The small and large bowel loops demonstrate normal caliber without evidence of bowel obstruction. Air intermixed with stool is seen throughout the colon. There are anastomotic sutures in small bowel loops which are herniating into the ventral hernia. The stomach grossly appears unremarkable. The abdominal aorta and IVC appear within normal limits. The bladder is decompressed limiting evaluation. Pelvic organ appears within normal limits. There is no gross evidence of a pelvic mass. There is no free fluid collection. Lung bases are clear. There is no acute osseous abnormality. IMPRESSION: 1. Midline ventral hernia containing small bowel loops and intra-abdominal fat. There are anastomotic sutures in the small bowel loop which is herniating into the ventral hernia. There are no dilated small or large bowel loops. There is no evidence of bowel obstruction. 2. Re-demonstration of left lower quadrant colostomy with peristomal herniation of intra-abdominal fat and large bowel loops. Air intermixed with stool is seen throughout the colon. 3. Right pelvic kidney with multiple cysts. 4. Multiple scattered hepatic cysts, the largest right hepatic lobe measuring 8.9 cm. Assessment/Plan Assessment/Plan Elevated troponin Abdominal pain Acute renal injury Ventral hernia Generalized weakness Plan 1. Admit to telemetry unit 2. Breathing treatment 3. Pain control management 4. Management of fluids and electrolytes 5. Consultation for hospitalist 6. Diagnostic tests abdomen/pelvis CT 7. DVT prophylaxis-on SCDs 8. Repeat labs CBC, CMP in a.m. 9. Continue with current medical management 10. Treatment plan discussed with patient and RN. Patient verbalized understanding. Plan discussed with: Patient, Spouse ( at bedside), Other (RN) My Orders Orders - RISHI TONY DNP Procedure Category Date Status Time Lisinopril Tablet PHA 03/14/24 In Process (Zestril Tablet) 10:00 Hydralazine Injection PHA 03/13/24 In Process (Apresoline Inject 18:15 Aspirin Tablet PHA 03/14/24 In Process 10:00 Allergies MARIELLA 03/13/24 In Process 18:07 Code Status CODE 03/13/24 Transmitted 18:07 Sodium Chloride Lock PHA 03/13/24 In Process (Saline Lock Ns) 22:00 Oxygen Per Hour RT 03/13/24 Transmitted 18:07 Hydrocodone-Acet PHA 03/13/24 In Process 5/325mg Tab ([place] 18:15 Ondansetron Hcl PHA 03/13/24 In Process (Zofran) 18:15 Docusate Sodium PHA 03/13/24 In Process Capsule (Colace 18:15 Complete Blood Count LAB 03/14/24 Verified 04:00 Comprehensive LAB 03/14/24 Verified Metabolic Panel 04:00 Cardiac DIET 03/13/24 Transmitted Diet-2gna,Lofat,Lochol Dinner Condition: Serious MARIELLA 03/13/24 In Process 18:07 Acetaminophen Tablet PHA 03/13/24 In Process (Tylenol Tablet) 18:15 Bedrest With Bathroom MARIELLA 03/13/24 In Process Privileg 18:07 Morphine Sulfate PHA 03/13/24 In Process Injection 18:15 Sequential MARIELLA 03/13/24 In Process Compression Device * Cardiology Consult CONS 03/13/24 Transmitted 18:11 Problem List: (1) Elevated troponin (2) Abdominal pain (3) Ventral hernia (4) Acute renal injury (5) Generalized weakness Date of Service: Mar 13, 2024 Billing Provider: RISHI TONY DNP Common Visit Codes: [id number]-[id number] INP/OBS CARE (HIGH) RISHI TONY DNP Mar 13, 2024 19:33
[2024-03-13] MEDS: SODIUM CHLOR 0.9% PF (SALINE LOCK) 10ML VIAL/SYR IV SCH (22:00)
[2024-03-13 22:08] VITALS: PULSE 51; O2SAT 99
[2024-03-13] MEDS: ASPirin 81 mg TAB PO ONE (22:11)
[2024-03-13 23:07] VITALS: BP 189/93; PULSE 48; PULSE 56; PULSE 57; RESP 18; TEMP 98.3; O2SAT 94; O2SAT 96
[2024-03-13] MEDS ORDERED: VARE1TAB11 PO (23:40)
[2024-03-13] MEDS ORDERED: ATOR20TA PO (23:40)
[2024-03-14] MEDS: hydrALAZINE HCL 20 MG/ML VL IV PRN (00:17)
[2024-03-14 00:57] VITALS: BP 153/77; PULSE 48; RESP 18; TEMP 98.3; O2SAT 94
[2024-03-14 05:00] VITALS: BP 154/94; PULSE 52; RESP 18; TEMP 98.2; O2SAT 96
[2024-03-14 06:26] LABS: Basophils # (auto) 0 10 ^3/uL (0-0.2); Basophils % (auto) 0.3 % (0.0-2.0); Eosinophils # (auto) 0.2 10 ^3/uL (0-0.8); Eosinophils % (auto) 2.1 % (0.0-7.0); Hematocrit 44.7 % (41.0-53.0); Hemoglobin 14.9 g/dL (13.5-17.5); Lymphocytes # (auto) 1.5 10 ^3/uL (0.4-5.4); Lymphocytes % (auto) 16.5 % (10.0-50.0); Mean Corpuscular Hemoglobin 28.2 pg (28.0-32.0); Mean Corpuscular Hgb Conc. 33.3 g/dL (32.0-36.0); Mean Corpuscular Volume 84.6 fL (80.0-100.0); Monocytes # (auto) 0.9 10 ^3/uL (0-1.3); Monocytes % (auto) 10.1 % (0.0-12.0); Neutrophils # (auto) 6.5 10 ^3/uL (1.6-8.6); Platelet Count (auto) 325 10^3/uL (140-450); Red Blood Cells 5.28 10^6/uL (4.5-5.90); Red Cell Distribution Width 14.4 % (11.8-14.3); White Blood Cell 9.1 10^3/uL (4.4-10.8)
[2024-03-14 06:32] LABS: Alanine Aminotransferase 11 U/L (7-40); Albumin 4.1 g/dL (3.2-4.8); Alkaline Phosphatase 101 U/L (46-116); Anion Gap 11 (5-15); Aspartate Aminotransferase 13 U/L (13-40); BUN/Creatinine Ratio 19.5 (10.0-20.0); Bilirubin, Total 0.4 mg/dL (0.2-1.0); Blood Urea Nitrogen 24 mg/dL (9-23); Carbon Dioxide 22 mmol/L (20-31); Chloride 111 mmol/L (98-107); Glucose 94 mg/dL (74-106); Potassium 3.7 mmol/L (3.5-5.1); Sodium 144 mmol/L (136-145); Total Protein 6.5 g/dL (5.7-8.2)
[2024-03-14 08:00] VITALS: PULSE 44; PULSE 74; RESP 18; O2SAT 94
[2024-03-14] MEDS: ASPirin 81 mg TAB PO SCH (08:46)
[2024-03-14] MEDS: LISINOPRIL 20 MG TAB PO SCH (08:46)
[2024-03-14 09:00] VITALS: BP 140/79; PULSE 58; RESP 18; TEMP 98.2; O2SAT 94
[2024-03-14 09:28] LABS: Hepatitis B Surface Antigen Negative (Negative)
[2024-03-14 09:49] LABS: Hepatitis C Antibody Negative (Negative)
--- NOTE | 2024-03-14 10:33 | DVHINCON2 ---
Date Seen: Mar 14, 2024 Referring Physician YADIRA Barnes Reason for Consultation Elevated troponin History of Present Illness This is a 69-year-old male patient who presents to emergency room with chief complaint of right lower quadrant abdominal pain. Cardiology is now being consulted for elevated troponin level. Initial twelve lead electrocardiogram reveals normal sinus rhythm with multiple PVCs. Initial troponin level of 58ng/L with flat trend thereafter. The patient denies any chest pain, shortness or breath, or palpitations, or other cardiac symptoms. Significant past medical history includes hypertension, hyperlipidemia, history of colon cancer status post colectomy and colostomy, tobacco use, and obesity. Past Medical History Past medical history reviewed. No other significant than mentioned above. Past Surgical History Colectomy Hernia repair x2 Family History: Cerebrovascular accident (CVA) G8 MOTHER, Onset:Unknown G8 FATHER, Onset:Unknown G8 BROTHER, Onset:Unknown Colon cancer G8 BROTHER, Onset:Unknown Hypertension G8 MOTHER, Onset:Unknown G8 FATHER, Onset:Unknown G8 BROTHER, Onset:Unknown Family History Family history reviewed. Social History Patient has a 45 pack-year history, states he only smokes approximately four cigarettes per day now Patient denies any alcohol use Patient denies any drug use Allergies: Coded Allergies: NO KNOWN ALLERGIES (Unverified , 07/10/22) Home Meds Active Scripts Naproxen (NAPROSYN TABLET) 500 Mg Tb, 1 TAB PO BID for 10 Days, #20 TAB 1 Refill Prov:ZAPATASILVANA Ale DO 09/18/23 Docusate Sodium (Docusate Sodium) 100 Mg Cap, 100 MG PO BID for 5 Days, #10 CAP Prov:BENNYSILVANA Ale DO 09/18/23 Cephalexin (KEFLEX CAPSULE) 250 Mg Cp, 2 CAP PO BID for 5 Days, #20 CAP Prov:ZAPATASIVLANA Ale DO 09/18/23 Reported Medications Varenicline Tartrate (Varenicline Tartrate) 1 Mg Tab, 1 MG PO, TAB 03/13/24 Atorvastatin Calcium (Lipitor) 20 Mg Tab, 20 MG PO, TAB 03/13/24 Bicalutamide (Bicalutamide) 50 Mg Tab, 50 MG PO, TAB 09/14/23 Ondansetron HCl (Ondansetron) 4 Mg Tab, 4 MG PO PRN, TAB 09/14/23 Gabapentin (Gabapentin) 100 Mg Cap, 100 MG PO DAILY, CAP 09/14/23 Triamterene & Hydrochlorothiaz (Maxzide) 1 Tab Tab, 1 TAB PO DAILY, TAB 09/14/23 Lisinopril (Lisinopril) 20 Mg Tab, 20 MG PO DAILY, TAB 09/14/23 Amlodipine Besylate (Amlodipine Besylate) 10 Mg Tab, 10 MG PO DAILY, TAB 09/14/23 Home Meds Home medications reviewed. Current Medications Current Medications Medications (Trade) Dose Ordered Sig/Agnes Route PRN Reason Start Time Stop Time Status Last Admin Lisinopril (Zestril Tablet) 20 mg DAILY PO 03/14/24 10:00 03/14/24 08:46 Hydralazine HCl (Apresoline Injection) 10 mg Q6HP PRN IV SBP>150 03/13/24 18:15 03/14/24 00:17 Aspirin 81 mg DAILY PO 03/14/24 10:00 03/14/24 08:46 Sodium Chloride (Saline Lock Ns) 10 ml Q8HR IV 03/13/24 22:00 03/14/24 08:48 Acetaminophen/ Hydrocodone Bitart ([place] 5/325MG Tab) 1 tab Q4HP PRN PO MODERATE PAIN (4-6 PAIN SCALE) 03/13/24 18:15 Ondansetron HCl (Zofran) 4 mg Q4HP PRN IV NAUSEA / VOMITING 03/13/24 18:15 Docusate Sodium (Colace Capsule) 100 mg BIDPRN PRN PO FOR CONSTIPATION 03/13/24 18:15 Acetaminophen (Tylenol Tablet) 650 mg Q6HP PRN PO PAIN SCALE 1-3 OR TEMP>100.4 03/13/24 18:15 Morphine Sulfate 2 mg Q4HPRN PRN IV SEVERE PAIN (7-10 PAIN SCALE) 03/13/24 18:15 Nitroglycerin (Ntrostat Sublingual) 0.4 mg Q5MINP PRN SL FOR CHEST PAIN 03/13/24 19:30 Morphine Sulfate 2 mg Q30M PRN IV FOR CHEST PAIN 03/13/24 19:30 Review of Systems Constitutional: No symptom reported Ears, Nose, & Throat: No symptom reported Eyes: No symptom reported Neurological: No symptoms reported Pulmonary/Respiratory: No symptoms reported Cardiovascular: No symptom reported Gastrointestinal: Right lower quadrant pain Genitourinary: No symptom reported Musculoskeletal: No symptom reported Skin: No symptom reported Psychiatric: No symptom reported Endocrine: No symptom reported Hematologic/Lymphatic: No symptom reported Vital Signs Vital Signs Date Time Temp Pulse Resp B/P (MAP) Pulse Ox O2 Delivery O2 Flow Rate FiO2 03/14/24 09:00 98.2 58 18 140/79 (99) 94 98.2 03/14/24 08:00 Room Air* 0 21 Physical Exam General Appearance: Cooperative. Obesity Pulmonary/Respiratory: Clear, bilateral breaths sounds. Cardiovascular/Chest: Regular rate and rhythm. Peripheral Pulses: 2+ Radial (R). 2+ Radial (L). 2+ Pedal (R). 2+ Pedal (L) Abdominal Exam: Normal bowel sounds. Left lower quadrant colostomy in place. Large right lower quadrant hernia Ankle Exam: Negative ankle edema Lower extremities: Negative lower extremity edema Neuro/Mental Status: A/OX4, coherent. Thoughts/Psych: Normal thought pattern. Appropriate mood and affect. Good judgment and insight. Appearance: No acute distress. Skin Exam: Normal inspection. Normal color. Warm and dry. Labs/Diagnostic Data Labs Test 03/14/24 04:55 03/13/24 19:50 03/13/24 16:46 03/13/24 15:56 Range/Units White Blood Count 9.1 4.4-10.8 10^3/uL Red Blood Count 5.28 4.5-5.90 10^6/uL Hemoglobin 14.9 13.5-17.5 g/dL Hematocrit 44.7 41.0-53.0 % Mean Corpuscular Volume 84.6 80.0-100.0 fL Mean Corpuscular Hemoglobin 28.2 28.0-32.0 pg Mean Corpuscular Hemoglobin Concent 33.3 32.0-36.0 g/dL Red Cell Distribution Width 14.4 H 11.8-14.3 % Platelet Count 325 140-450 10^3/uL Mean Platelet Volume 8.4 6.9-10.8 fL Neutrophils (%) (Auto) 71.0 37.0-80.0 % Lymphocytes (%) (Auto) 16.5 10.0-50.0 % Monocytes (%) (Auto) 10.1 0.0-12.0 % Eosinophils (%) (Auto) 2.1 0.0-7.0 % Basophils (%) (Auto) 0.3 0.0-2.0 % Neutrophils # (Auto) 6.5 1.6-8.6 10 ^3/uL Lymphocytes # (Auto) 1.5 0.4-5.4 10 ^3/uL Monocytes # (Auto) 0.9 0-1.3 10 ^3/uL Eosinophils # (Auto) 0.2 0-0.8 10 ^3/uL Basophils # (Auto) 0 0-0.2 10 ^3/uL Nucleated Red Blood Cells 0.0 % Sodium Level 144 136-145 mmol/L Potassium Level 3.7 3.5-5.1 mmol/L Chloride Level 111 H 98-107 mmol/L Carbon Dioxide Level 22 20-31 mmol/L Anion Gap 11 5-15 Blood Urea Nitrogen 24 H 9-23 mg/dL Creatinine 1.23 0.700-1.30 mg/dL Glomerular Filtration Rate Calc 63 >90 mL/min BUN/Creatinine Ratio 19.5 10.0-20.0 Serum Glucose 94 74-106 mg/dL Calcium Level 10.0 8.7-10.4 mg/dL Total Bilirubin 0.4 0.2-1.0 mg/dL Aspartate Amino Transferase (AST) 13 13-40 U/L Alanine Aminotransferase (ALT) 11 7-40 U/L Alkaline Phosphatase 101 46-116 U/L Total Protein 6.5 5.7-8.2 g/dL Albumin 4.1 3.2-4.8 g/dL Hepatitis B Surface Antigen Negative Negative Hepatitis C Antibody Negative Negative Troponin I High Sensitivity 62 *H </=54 ng/L Urine Color Yellow Yellow Urine Clarity Clear Clear Urine pH 5.5 5.0-9.0 Urine Specific [place] 1.025 1.001-1.035 Urine Protein Trace H Negative Urine Ketones Negative Negative Urine Blood Negative Negative /uL Urine Nitrite Negative Negative Urine Bilirubin Negative Negative Urine Urobilinogen Normal Negative mg/dL Urine Leukocyte Esterase Negative Negative /uL Urine RBC 2 0 - 3 /hpf Urine WBC 1 0 - 3 /hpf Urine Squamous Epithelial Cells Few <5 /hpf Urine Bacteria None seen None Seen /hpf Urine Mucus Few None Seen Urine Glucose Normal Normal mg/dL Lactic Acid Level 1.9 0.4-2.0 mmol/L Lipase 31 12-53 U/L Assessment Hypertensive urgency, resolved Ventral hernia NSTEMI type II secondary to above Hyperlipidemia Acute kidney injury, resolved History of colon cancer status post colectomy with colostomy Plan/Recommendation We will continue with the following plan/recommendations (Dr. Pham): Transthoracic echocardiogram reveals EF 55%. Elevated troponin level likely in the setting of hypertensive urgency, which is now resolved. We will recommend aggressive blood pressure control. Monitor and replete electrolytes as needed, keep potassium greater than four and magnesium greater than two. Patient was also found to have a ventral hernia, surgical team consulted. There is no further inpatient cardiac workup indicated at this time. Cardiology will sign off. Please reconsult if needed. Thank you for allowing us to care for this patient. Please call with any questions or concerns. Critical care time spent: 39 minutes This medical document was created using an electronic medical record system with voice recognition software and computerized dictation system. Although this d ocument has been carefully reviewed, there might still be some phonetic and typographical errors. Occasional wrong-word or ``sound-alike substitutions may have occurred due to the inherent limitations of voice recognition software. These areas are purely typographical due to imperfections of the software programs and do not reflect any compromise in the patient's medical care. Please read the chart carefully and recognize, using context, where these substitutions have occurred. Plan discussed with: Patient Date of Service: Mar 14, 2024 Billing Provider: NICOLAS PHAM MD Cardiology Common Codes: 17787-BYIGTND INP/OBS CARE (High) Cardiology Consultation Codes: 24800-[id number] CONSULT <45MIN KVNG HARDY Mar 14, 2024 10:33
--- NOTE | 2024-03-14 10:38 | DVHPN2 ---
Subjective Seen and examined at bedside, no chest pain or abdominal pain. DC Home Changes from previous H/P or p: No Changes Eyes: No Pain, No Vision change, No Conjunctivae inflammation, No Eyelid inflammation, No Other, No Redness ENT: No Ear pain, No Ear discharge, No Nose pain, No Nose discharge, No Nose congestion, No Mouth pain, No Mouth swelling, No Throat pain, No Throat swelling, No Other Cardiovascular: No Chest Pain, No Palpitations, No Orthopnea, No Paroxysmal Noc. Dyspnea, No Edema, No Lt Headedness, No Other Respiratory: No Cough, No Dry, No Shortness of breath, No SOB with excertion, No Wheezing, No Hemoptysis, No Pleuritic Pain, No Sputum, No Other Gastrointestinal: No Nausea, No Vomiting, No Abdominal Pain, No Diarrhea, No Constipation, No Melena, No Hematochezia, No Other Genitourinary: No Dysuria, No Frequency, No Incontinence, No Hematuria, No Retention, No Other Musculoskeletal: No other, No neck pain, No shoulder pain, No arm pain, No back pain, No hand pain, No leg pain, No foot pain Skin: No Rash, No Lesions, No Jaundice, No Bruising; Other (Scar annmarie in the center of the abdomen) Objective Vitals Vital Signs Date Time Temp Pulse Resp B/P (MAP) Pulse Ox O2 Delivery O2 Flow Rate FiO2 03/14/24 09:00 98.2 58 18 140/79 (99) 94 98.2 03/14/24 08:00 Room Air* 0 21 Intake/Output Intake and Output 03/14/24 07:00 Intake Total 350 ml Balance 350 ml Intake Oral 350 ml # Voids 2 Medications Current Medications Medications Dose Ordered Sig/Agnes Route Start Time Stop Time Status Last Admin Dose Admin Lisinopril 20 mg DAILY PO 03/14/24 10:00 03/14/24 08:46 20 MG Hydralazine HCl 10 mg Q6HP PRN IV 03/13/24 18:15 03/14/24 00:17 10 MG Aspirin 81 mg DAILY PO 03/14/24 10:00 03/14/24 08:46 81 MG Sodium Chloride 10 ml Q8HR IV 03/13/24 22:00 03/14/24 08:48 10 ML Acetaminophen/ Hydrocodone Bitart 1 tab Q4HP PRN PO 03/13/24 18:15 Ondansetron HCl 4 mg Q4HP PRN IV 03/13/24 18:15 Docusate Sodium 100 mg BIDPRN PRN PO 03/13/24 18:15 Acetaminophen 650 mg Q6HP PRN PO 03/13/24 18:15 Morphine Sulfate 2 mg Q4HPRN PRN IV 03/13/24 18:15 Nitroglycerin 0.4 mg Q5MINP PRN SL 03/13/24 19:30 Morphine Sulfate 2 mg Q30M PRN IV 03/13/24 19:30 Laboratory Results Laboratory Tests 03/14/24 04:55 Chemistry Test 03/13/24 15:56 03/14/24 04:55 Albumin 4.2 g/dL (3.2-4.8) 4.1 g/dL (3.2-4.8) Calcium Level 10.4 mg/dL (8.7-10.4) 10.0 mg/dL (8.7-10.4) Total Protein 6.5 g/dL (5.7-8.2) 6.5 g/dL (5.7-8.2) Lipid panel Test 03/13/24 15:56 Lipase 31 U/L (12-53) LFT Test 03/13/24 15:56 03/14/24 04:55 Alanine Aminotransferase (ALT) 13 U/L (7-40) 11 U/L (7-40) Alkaline Phosphatase 113 U/L (46-116) 101 U/L (46-116) Aspartate Amino Transferase (AST) 10 U/L (13-40) L 13 U/L (13-40) Total Bilirubin 0.3 mg/dL (0.2-1.0) 0.4 mg/dL (0.2-1.0) Urinalysis Test 03/13/24 16:46 Urine Color Yellow (Yellow) Urine Clarity Clear (Clear) Urine pH 5.5 (5.0-9.0) Urine Specific [place] 1.025 (1.001-1.035) Urine Protein Trace (Negative) H Urine Ketones Negative (Negative) Urine Blood Negative /uL (Negative) Urine Nitrite Negative (Negative) Urine Bilirubin Negative (Negative) Urine Urobilinogen Normal mg/dL (Negative) Urine Leukocyte Esterase Negative /uL (Negative) Urine RBC 2 /hpf (0 - 3) Urine WBC 1 /hpf (0 - 3) Urine Squamous Epithelial Cells Few /hpf (<5) Urine Bacteria None seen /hpf (None Seen) Urine Mucus Few (None Seen) Urine Glucose Normal mg/dL (Normal) Assessment/Plan Assessment/Plan Abdominal Pain- Resolved Plan discussed with: Patient My Orders Orders - JOSUE SARGENT MD Procedure Category Date Status Time * Surgical Consult CONS 03/14/24 Transmitted Date of Service: Mar 14, 2024 Billing Provider: JOSUE SARGENT MD Common Visit Codes: 54971-ZDP/OBS DISCH DAY >30min JOSUE SARGENT MD Mar 14, 2024 10:38
--- NOTE | 2024-03-14 11:35 | DVHSR ---
APPROVED REPORT EXAM: Two-dimensional and M-mode echocardiogram with Doppler and color Doppler. Blood Pressure: 140/79 mmHg INDICATION Eval cardiac function RISK FACTORS Height: 71, Weight: 211 DIMENSIONS LVDd5.0 (3.8-5.7cm)LA (2D)3.8 (1.9-4.0cm)Aortic Root4.3 (2.0-3.7cm) LVDs3.2 (2.5-4.0cm)LA (MM) (1.9-4.0cm)Aortic Cusp Exc2.6 (1.5-2.0cm) EF (%) 66.0 (55-70%)Rt. Atrium3.2 (1.9-4.0cm)Asc. Aorta cm Mitral Valve MitralMitral Stenosis E wave0.73m/sMV Mean GR.mmHg A wave1.04m/sMV Peak GR.mmHg E/A ratio0.72D MVAcm2 DECEL [id number] 1/2 [id number] IVRTmsDop MVA3.26cm2 Aortic Valve Aortic ValveAortic Stenosis V11.90m/Cricket Mean GR.12mmHg V22.33m/Cricket Peak GR.22mmHg LVOT Diameter2.4 (1.8-2.4cm)Doppler AVA3.69cm2 Pulmonic Valve V20.90m/s Tricuspid Valve TR Velocity1.69m/s [id number] Other Information Technically limited study due to body habitus. Conclusion Normal left ventricular size and dimension. Normal left ventricular systolic function estimated ejec tion fraction 55%. There is a grade 1 diastolic dysfunction. Normal right ventricular size and dimension. Normal right ventricular systolic function. Normal biatrial size and dimension. The aortic valve appears thickened and sclerotic there is mild aortic valve sclerosis. Normal mitral valve structure and function. Normal tricuspid structure and function. The pulmonary valve is grossly normal. No pericardial effusion.
--- NOTE | 2024-03-14 12:38 | DVHINCON2 ---
Consultation - Surgical Date Seen: Mar 14, 2024 Referring Physician Reason for Consultation ventral hernia History of Present Illness History of Present Illness 69 year old male presented to the ER with complaint of right lower quadrant pain for the past week. Patient states the pain became progressively worse. Today he states he has no pain. Past Medical/Surgical History Past Medical/Surgical History Hernia, Hypertension, CKD stage IIIA, Colon cancer, Prostate cancer, Family and Social History Family and Social History The patient lives at home, denies smoking, alcohol or illicit drugs abuse. Allergies and medications Allergies: Coded Allergies: NO KNOWN ALLERGIES (Unverified , 07/10/22) Home Meds Active Scripts Naproxen (NAPROSYN TABLET) 500 Mg Tb, 1 TAB PO BID for 10 Days, #20 TAB 1 Refill Prov:SILVANA ZAPATA DO 09/18/23 Docusate Sodium (Docusate Sodium) 100 Mg Cap, 100 MG PO BID for 5 Days, #10 CAP Prov:ZAPATASILVANA Voss DO 09/18/23 Cephalexin (KEFLEX CAPSULE) 250 Mg Cp, 2 CAP PO BID for 5 Days, #20 CAP Prov:ZAPATASILVANA Voss DO 09/18/23 Reported Medications Varenicline Tartrate (Varenicline Tartrate) 1 Mg Tab, 1 MG PO, TAB 03/13/24 Atorvastatin Calcium (Lipitor) 20 Mg Tab, 20 MG PO, TAB 03/13/24 Bicalutamide (Bicalutamide) 50 Mg Tab, 50 MG PO, TAB 09/14/23 Ondansetron HCl (Ondansetron) 4 Mg Tab, 4 MG PO PRN, TAB 09/14/23 Gabapentin (Gabapentin) 100 Mg Cap, 100 MG PO DAILY, CAP 09/14/23 Triamterene & Hydrochlorothiaz (Maxzide) 1 Tab Tab, 1 TAB PO DAILY, TAB 09/14/23 Lisinopril (Lisinopril) 20 Mg Tab, 20 MG PO DAILY, TAB 09/14/23 Amlodipine Besylate (Amlodipine Besylate) 10 Mg Tab, 10 MG PO DAILY, TAB 09/14/23 Review of systems Review of Systems: HEENT:Normal, CVS:Normal, RESPIRATORY:Normal, GI:Normal, :Normal, MSK:Normal, NEURO:Normal Examination Vital signs Vital Signs Date Time Temp Pulse Resp B/P (MAP) Pulse Ox O2 Delivery O2 Flow Rate FiO2 03/14/24 09:00 98.2 58 18 140/79 (99) 94 98.2 03/14/24 08:00 Room Air* 0 21 Medications Current Medications Medications (Trade) Dose Ordered Sig/Agnes Route PRN Reason Start Time Stop Time Status Last Admin Lisinopril (Zestril Tablet) 20 mg DAILY PO 03/14/24 10:00 03/14/24 08:46 Hydralazine HCl (Apresoline Injection) 10 mg Q6HP PRN IV SBP>150 03/13/24 18:15 03/14/24 00:17 Aspirin 81 mg DAILY PO 03/14/24 10:00 03/14/24 08:46 Sodium Chloride (Saline Lock Ns) 10 ml Q8HR IV 03/13/24 22:00 03/14/24 08:48 Acetaminophen/ Hydrocodone Bitart ([place] 5/325MG Tab) 1 tab Q4HP PRN PO MODERATE PAIN (4-6 PAIN SCALE) 03/13/24 18:15 Ondansetron HCl (Zofran) 4 mg Q4HP PRN IV NAUSEA / VOMITING 03/13/24 18:15 Docusate Sodium (Colace Capsule) 100 mg BIDPRN PRN PO FOR CONSTIPATION 03/13/24 18:15 Acetaminophen (Tylenol Tablet) 650 mg Q6HP PRN PO PAIN SCALE 1-3 OR TEMP>100.4 03/13/24 18:15 Morphine Sulfate 2 mg Q4HPRN PRN IV SEVERE PAIN (7-10 PAIN SCALE) 03/13/24 18:15 Nitroglycerin (Ntrostat Sublingual) 0.4 mg Q5MINP PRN SL FOR CHEST PAIN 03/13/24 19:30 Morphine Sulfate 2 mg Q30M PRN IV FOR CHEST PAIN 03/13/24 19:30 Laboratory Labs Test 03/14/24 04:55 03/13/24 19:50 03/13/24 16:46 03/13/24 15:56 Range/Units White Blood Count 9.1 4.4-10.8 10^3/uL Red Blood Count 5.28 4.5-5.90 10^6/uL Hemoglobin 14.9 13.5-17.5 g/dL Hematocrit 44.7 41.0-53.0 % Mean Corpuscular Volume 84.6 80.0-100.0 fL Mean Corpuscular Hemoglobin 28.2 28.0-32.0 pg Mean Corpuscular Hemoglobin Concent 33.3 32.0-36.0 g/dL Red Cell Distribution Width 14.4 H 11.8-14.3 % Platelet Count 325 140-450 10^3/uL Mean Platelet Volume 8.4 6.9-10.8 fL Neutrophils (%) (Auto) 71.0 37.0-80.0 % Lymphocytes (%) (Auto) 16.5 10.0-50.0 % Monocytes (%) (Auto) 10.1 0.0-12.0 % Eosinophils (%) (Auto) 2.1 0.0-7.0 % Basophils (%) (Auto) 0.3 0.0-2.0 % Neutrophils # (Auto) 6.5 1.6-8.6 10 ^3/uL Lymphocytes # (Auto) 1.5 0.4-5.4 10 ^3/uL Monocytes # (Auto) 0.9 0-1.3 10 ^3/uL Eosinophils # (Auto) 0.2 0-0.8 10 ^3/uL Basophils # (Auto) 0 0-0.2 10 ^3/uL Nucleated Red Blood Cells 0.0 % Sodium Level 144 136-145 mmol/L Potassium Level 3.7 3.5-5.1 mmol/L Chloride Level 111 H 98-107 mmol/L Carbon Dioxide Level 22 20-31 mmol/L Anion Gap 11 5-15 Blood Urea Nitrogen 24 H 9-23 mg/dL Creatinine 1.23 0.700-1.30 mg/dL Glomerular Filtration Rate Calc 63 >90 mL/min BUN/Creatinine Ratio 19.5 10.0-20.0 Serum Glucose 94 74-106 mg/dL Calcium Level 10.0 8.7-10.4 mg/dL Total Bilirubin 0.4 0.2-1.0 mg/dL Aspartate Amino Transferase (AST) 13 13-40 U/L Alanine Aminotransferase (ALT) 11 7-40 U/L Alkaline Phosphatase 101 46-116 U/L Total Protein 6.5 5.7-8.2 g/dL Albumin 4.1 3.2-4.8 g/dL Hepatitis B Surface Antigen Negative Negative Hepatitis C Antibody Negative Negative Troponin I High Sensitivity 62 *H </=54 ng/L Urine Color Yellow Yellow Urine Clarity Clear Clear Urine pH 5.5 5.0-9.0 Urine Specific [place] 1.025 1.001-1.035 Urine Protein Trace H Negative Urine Ketones Negative Negative Urine Blood Negative Negative /uL Urine Nitrite Negative Negative Urine Bilirubin Negative Negative Urine Urobilinogen Normal Negative mg/dL Urine Leukocyte Esterase Negative Negative /uL Urine RBC 2 0 - 3 /hpf Urine WBC 1 0 - 3 /hpf Urine Squamous Epithelial Cells Few <5 /hpf Urine Bacteria None seen None Seen /hpf Urine Mucus Few None Seen Urine Glucose Normal Normal mg/dL Lactic Acid Level 1.9 0.4-2.0 mmol/L Lipase 31 12-53 U/L Examination: GENERAL:Normal, HEENT:Normal, NECK:Normal, LUNGS:Normal, CVS:Norm al, ABDOMEN:Normal, MSK:Normal, SKIN:Abnormal (abdominal scar, hernia ) Problem List/Assessment/Plan Problems: (1) Abdominal pain (2) Ventral hernia Assessment and Plan abdomen non tender, no complaint of pain at this time. Labs and image reports reviewed. explained to patient with chronic cough and urinary retention the risk for hernia reoccurrence increases no emergent surgical intervention needed at this time, Hernia repair can be as outpatient. please recall if needed case discussed with Dr. Bingham and agrees with plan Plan discussed with Plan discussed with: Patient, Other (Dr. Bingham ) Visit Coding Surgery Date of Service if different f: Mar 14, 2024 Billing Provider: DULCE BINGHAM MD Surgery Visit Codes: 15479 - INP CONSULT <80 MIN ALEXY GALLARDO [employer] Mar 14, 2024 12:38
[2024-03-14 13:00] VITALS: BP 125/69; PULSE 48; RESP 14; TEMP 98.1; O2SAT 94
--- NOTE | 2024-03-14 14:33 | DVHDS2 ---
Discharge Summary Date of Admission Mar 13, 2024 at 19:30 Date of Discharge: Mar 14, 2024 Labs/Diagnostic Data: Laboratory Results Test 03/14/24 04:55 03/13/24 19:50 03/13/24 16:46 03/13/24 15:56 White Blood Count 9.1 10^3/uL (4.4-10.8) Red Blood Count 5.28 10^6/uL (4.5-5.90) Hemoglobin 14.9 g/dL (13.5-17.5) Hematocrit 44.7 % (41.0-53.0) Mean Corpuscular Volume 84.6 fL (80.0-100.0) Mean Corpuscular Hemoglobin 28.2 pg (28.0-32.0) Mean Corpuscular Hemoglobin Concent 33.3 g/dL (32.0-36.0) Red Cell Distribution Width 14.4 % (11.8-14.3) Platelet Count 325 10^3/uL (140-450) Mean Platelet Volume 8.4 fL (6.9-10.8) Neutrophils (%) (Auto) 71.0 % (37.0-80.0) Lymphocytes (%) (Auto) 16.5 % (10.0-50.0) Monocytes (%) (Auto) 10.1 % (0.0-12.0) Eosinophils (%) (Auto) 2.1 % (0.0-7.0) Basophils (%) (Auto) 0.3 % (0.0-2.0) Neutrophils # (Auto) 6.5 10 ^3/uL (1.6-8.6) Lymphocytes # (Auto) 1.5 10 ^3/uL (0.4-5.4) Monocytes # (Auto) 0.9 10 ^3/uL (0-1.3) Eosinophils # (Auto) 0.2 10 ^3/uL (0-0.8) Basophils # (Auto) 0 10 ^3/uL (0-0.2) Nucleated Red Blood Cells 0.0 % Sodium Level 144 mmol/L (136-145) Potassium Level 3.7 mmol/L (3.5-5.1) Chloride Level 111 mmol/L (98-107) Carbon Dioxide Level 22 mmol/L (20-31) Anion Gap 11 (5-15) Blood Urea Nitrogen 24 mg/dL (9-23) Creatinine 1.23 mg/dL (0.700-1.30) Glomerular Filtration Rate Calc 63 mL/min (>90) BUN/Creatinine Ratio 19.5 (10.0-20.0) Serum Glucose 94 mg/dL (74-106) Calcium Level 10.0 mg/dL (8.7-10.4) Total Bilirubin 0.4 mg/dL (0.2-1.0) Aspartate Amino Transferase (AST) 13 U/L (13-40) Alanine Aminotransferase (ALT) 11 U/L (7-40) Alkaline Phosphatase 101 U/L (46-116) Total Protein 6.5 g/dL (5.7-8.2) Albumin 4.1 g/dL (3.2-4.8) Hepatitis B Surface Antigen Negative (Negative) Hepatitis C Antibody Negative (Negative) Troponin I High Sensitivity 62 ng/L (</=54) Urine Color Yellow (Yellow) Urine Clarity Clear (Clear) Urine pH 5.5 (5.0-9.0) Urine Specific [place] 1.025 (1.001-1.035) Urine Protein Trace (Negative) Urine Ketones Negative (Negative) Urine Blood Negative /uL (Negative) Urine Nitrite Negative (Negative) Urine Bilirubin Negative (Negative) Urine Urobilinogen Normal mg/dL (Negative) Urine Leukocyte Esterase Negative /uL (Negative) Urine RBC 2 /hpf (0 - 3) Urine WBC 1 /hpf (0 - 3) Urine Squamous Epithelial Cells Few /hpf (<5) Urine Bacteria None seen /hpf (None Seen) Urine Mucus Few (None Seen) Urine Glucose Normal mg/dL (Normal) Lactic Acid Level 1.9 mmol/L (0.4-2.0) Lipase 31 U/L (12-53) Other Laboratory Tests 03/14/24 04:55 Brief Hx & Hospital Course: The patient is a 69-year-old male past medical history of hernia, hypertension, CKD, colon cancer, and prostate cancer who presented to [facility] ED with complaint of right lower quadrant abdominal pain for the past 1 week. Patient reports symptoms progressively get worse with abdominal swelling that protrudes due to persistent cough and urinary frequency. Patient was seen and evaluated in the ED, laboratory data shows WBC 8.7, platelets 346, sodium 144, potassium 4.6, BUN 28, creatinine 1.35, glucose 110, troponin 58, AST 10, ALT 13, blood pressure 158/82, heart rate 52, temperature 97.8 F, O2 saturation 95% on room air. Abdomen/pelvis CT revealing midline ventral hernia containing small bowel loops and intra-abdominal fat; there anastomotic sutures in the small bowel loops which is herniating into the ventral hernia; there are no dilated small or large bowel loops, there is no evidence of bowel obstruction; Right pelvic kidney with multiple cysts; multiple scattered hepatic cysts, the largest right hepatic lobe measuring 8.9 cm. Patient was seen in surgical and cardiology consults. Patient denies any pain, will be discharged home for outpatient followups/ Operations or Procedures APPROVED REPORT EXAM: Two-dimensional and M-mode echocardiogram with Doppler and color Doppler. Blood Pressure: 140/79 mmHg INDICATION Eval cardiac function RISK FACTORS Height: 71, Weight: 211 DIMENSIONS LVDd 5.0 (3.8-5.7cm) LA (2D) 3.8 (1.9-4.0cm) Aortic Root 4.3 (2.0- 3.7cm) LVDs 3.2 (2.5-4.0cm) LA (MM) (1.9-4.0cm) Aortic Cusp Exc 2.6 (1.5- 2.0cm) EF (%) 66.0 (55-70%) Rt. Atrium 3.2 (1.9-4.0cm) Asc. Aorta cm Mitral Valve Mitral Mitral Stenosis E wave 0.73m/s MV Mean GR. mmHg A wave 1.04m/s MV Peak GR. mmHg E/A ratio 0.7 2D MVA cm2 DECEL Time 241ms PRESS 1/2 Time 67ms IVRT ms Dop MVA 3.26cm2 Aortic Valve Aortic Valve Aortic Stenosis V1 1.90m/s AO Mean GR. 12mmHg V2 2.33m/s AO Peak GR. 22mmHg LVOT Diameter 2.4 (1.8-2.4cm) Doppler DAVID 3.69cm2 Pulmonic Valve V2 0.90m/s Tricuspid Valve TR Velocity 1.69m/s RVSP 14mmHg Other Information Technically limited study due to body habitus. Conclusion Normal left ventricular size and dimension. Normal left ventricular systolic function estimated ejection fraction 55%. There is a grade 1 diastolic dysfunction. Normal right ventricular size and dimension. Normal right ventricular systolic function. Normal biatrial size and dimension. The aortic valve appears thickened and sclerotic there is mild aortic valve sclerosis. Normal mitral valve structure and function. Normal tricuspid structure and function. The pulmonary valve is grossly normal. No pericardial effusion. Condition at Discharge: Poor Final Diagnosis/Problems List Abdominal Pain s/p Colostomy Ventral Hernia NSTEMI-II- Resolved Discharge Disposition: Home Discharge Instruct/Medications Diet: See Comment Diet comment: soft diet Activity: Light activity Follow Up/Referral: PCP in 1 week Discharge Statement: "Patient was advised to return to the ER or call 911 if any headaches, dizziness, shortness of breath, chest pain, abdominal pain, bleeding, fevers, or worsening of medical condition. Patient was counseled about treatment plan, medications, possible side effects, patientverbalized understanding. All questions were answered to the best of my ability. This discharge took greater then 30 minutes in planning, reviewing documentation, counseling the patient, and discussing with other team members." ASSESSMENT ASSESSMENT Assessment Date of Service: Mar 14, 2024 Billing Provider: JOSUE SARGENT MD Common Visit Codes: 91864-ZUK/OBS DISCH DAY >30min JOSUE SARGENT MD Mar 14, 2024 14:33
[2024-03-14] MEDS: POTASSIUM CHL 20 Meq TABLET PO ONE (15:39)
[2024-03-14 15:43] VITALS: BP 140/79; PULSE 48; RESP 14; TEMP 98.1; O2SAT 94
== END 2024-03-14 16:15 | disposition home or self-care (01) | DRG 393 ==
LOC: ER 13:41 → TELE 19:30 → TELE-CENTR 19:32
PROVIDERS: ADMIT Nurse Practitioner Family; ATTEND Internal Medicine
DX: K43.9 Ventral hernia without obstruction or gangrene (principal); I21.A1 Myocardial infarction type 2; N17.9 Acute kidney failure, unspecified; I12.9 Hypertensive chronic kidney disease with stage 1 through stage 4 chronic kidney disease, or unspecified chronic kidney disease; N18.31 Chronic kidney disease, stage 3a; E78.5 Hyperlipidemia, unspecified; F17.210 Nicotine dependence, cigarettes, uncomplicated; I16.0 Hypertensive urgency; Z93.3 Colostomy status; Z90.49 Acquired absence of other specified parts of digestive tract; Z85.46 Personal history of malignant neoplasm of prostate; Z85.038 Personal history of other malignant neoplasm of large intestine; Z80.42 Family history of malignant neoplasm of prostate; Z80.0 Family history of malignant neoplasm of digestive organs; Z80.3 Family history of malignant neoplasm of breast; Z82.49 Family history of ischemic heart disease and other diseases of the circulatory system; Z82.3 Family history of stroke
CPT/HCPCS: 36415; 74176; 80053; 81001; 83605; 83690; 83735; 84484; 85025; 86803; 87340; 93306; G0378

== ENCOUNTER 2024-04-05 07:57 | Day surgery (SDC) | payer OTHER ==
[2024-04-03 11:25] LABS: Basophils # (auto) 0.1 10 ^3/uL (0-0.2); Basophils % (auto) 0.8 % (0.0-2.0); Eosinophils # (auto) 0.2 10 ^3/uL (0-0.8); Eosinophils % (auto) 3.6 % (0.0-7.0); Hematocrit 50.6 % (41.0-53.0); Hemoglobin 16.7 g/dL (13.5-17.5); Mean Corpuscular Hemoglobin 28.2 pg (28.0-32.0); Mean Corpuscular Hgb Conc. 33.1 g/dL (32.0-36.0); Mean Corpuscular Volume 85.4 fL (80.0-100.0); Monocytes # (auto) 0.8 10 ^3/uL (0-1.3); Monocytes % (auto) 11.5 % (0.0-12.0); Neutrophils # (auto) 3.8 10 ^3/uL (1.6-8.6); Neutrophils % (auto) 55.1 % (37.0-80.0); Platelet Count (auto) 337 10^3/uL (140-450); Red Blood Cells 5.92 10^6/uL (4.5-5.90); Red Cell Distribution Width 14.7 % (11.8-14.3); White Blood Cell 6.9 10^3/uL (4.4-10.8)
[2024-04-03 11:48] LABS: INR 0.98 (0.9-1.15); Partial Thromboplastin Time 29.1 SEC (24.5-34.5); Prothrombin Time 10.4 sec (9.3-11.8)
[2024-04-03 12:05] LABS: Alanine Aminotransferase 10 U/L (7-40); Albumin 4.3 g/dL (3.2-4.8); Alkaline Phosphatase 107 U/L (46-116); Anion Gap 7 (5-15); Aspartate Aminotransferase 16 U/L (13-40); BUN/Creatinine Ratio 13.4 (10.0-20.0); Bilirubin, Total 0.4 mg/dL (0.2-1.0); Blood Urea Nitrogen 18 mg/dL (9-23); Calcium 10.4 mg/dL (8.7-10.4); Carbon Dioxide 28 mmol/L (20-31); Chloride 106 mmol/L (98-107); Glucose 99 mg/dL (74-106); Sodium 141 mmol/L (136-145); Total Protein 7.3 g/dL (5.7-8.2)
[~2024-04-05] VITALS: Ht 175.3 cm; Wt 102.1 kg
[~2024-04-05 07:57] MED LIST changes: -BICA50TA42 PO; -CEPH250C PO; -DOCU-265 PO; -NAP500T PO; -ONDA-155 PO
[2024-04-05] MEDS ORDERED: NALOXONE HCL 0.4 MG/ML VIAL ONE (08:19)
[2024-04-05] MEDS ORDERED: SODIUM CHLORIDE LOCK 10 ML ONE (08:19)
[2024-04-05] MEDS ORDERED: FLUMAZENIL 0.1 MG/ML INJ 10ML MDV IV ONE (08:19)
[2024-04-05] MEDS ORDERED: diphenhdrAMINE HCL 50 MG/1 ML VL ONE (08:20)
[2024-04-05 08:59] VITALS: PULSE 75; RESP 15; O2SAT 100
[2024-04-05] MEDS: MIDAZOLAM HCL 5 MG/ML-1ML VIAL ONE (09:05)
[2024-04-05] MEDS: fentaNYL CITRATE 100 MCG/2 ML VL ONE (09:05)
--- NOTE | 2024-04-05 09:58 | DVHOP2 ---
Operative Report DATE OF PROCEDURE: 04/05/24 INDICATIONS FOR THE PROCEDURE: diarrhea status colostomy PROCEDURE PERFORMED: Colonoscopy and polypectomy by snare colonoscopy and polypectomy by biopsy POSTOPERATIVE DIAGNOSIS: cecal polyp removed by snare Transverse colon polyp removed by biopsy forceps Diverticulosis of the descending colon Status post colostomy with extremely tortuous bowel loops near the colostomy site making the examination extremely difficult but examination could be completed with good visualization of the cecum and the rest of the colon Colostomy site showed no ulceration strictures or other anomalies INFORMED CONSENT: The risks and benefits and alternatives were explained to the patient and informed consent was obtained. PROCEDURE IN DETAIL: The patient was kept NPO after midnight. He was given sedation with 3 mg Versed and 75 mcg of fentanyl Olympus colonoscope was passed through the sigmoid colostomy in the left lower quadrant and passed all the way up to cecum. Cecum, ascending colon, hepatic flexure, transverse colon, splenic flexure, descending colon, and sigmoid colon up to colostomy site were all visualized and the findings were as follows: Findings: The colon was very tortuous especially in close to the colostomy area with extremely tortuous colon with redundant bowel loops making examination very difficult but could be passed through all the way up to the cecum In the the cecum there was one 10 mm polyp removed with the help of the snare bleeding In the transverse colon there was a polyp which was about 8 mm removed with the help of the biopsy forceps completely Colon was extremely tortuous The were few diverticulae in the descending colon Colostomy site looked normal Patient tolerated the procedure extremely well post op vital signs stable ENDOSCOPIC IMPRESSION: cecal polyp removed by snare Transverse colon polyp removed by biopsy forceps Diverticulosis of the descending colon Status post colostomy with extremely tortuous bowel loops near the colostomy site making the examination extremely difficult but examination could be completed with good visualization of the cecum and the rest of the colon Colostomy site showed no ulceration strictures or other anomalies SUGGESTIONS: Await the histology of the polyp Recommend repeat evaluation in five years If symptoms persist may need to re-evaluate the anastomotic area and if further problems may need to look into revision of the colostomy area because of the extremely tortuous and redundant bowel loops with adhesions With warm regards, FIDELIA Cage MD Apr 05, 2024 09:58
[2024-04-05 10:19] VITALS: BP 115/71; PULSE 73; RESP 15; O2SAT 96
== END 2024-04-05 10:35 | disposition home or self-care (01) ==
LOC: GI 07:57
PROVIDERS: ATTEND Internal Medicine Gastroenterology
DX: R19.7 Diarrhea, unspecified (principal); D12.0 Benign neoplasm of cecum; D12.3 Benign neoplasm of transverse colon; K57.30 Diverticulosis of large intestine without perforation or abscess without bleeding; Z79.899 Other long term (current) drug therapy; Z93.3 Colostomy status; Z98.890 Other specified postprocedural states
CPT/HCPCS: 36415; 44389; 44394; 80053; 85025; 85610; 85730; 88305; J2250; J3010; J7030; 45380; 45385; 99152; 99153

== ENCOUNTER → 2024-04-10 | Outpatient (CLI) | payer OTHER ==
[2024-04-10] MEDS: REGADENOSON 0.4 MG/5 ML SYRG IV ONE ×2 (13:30→14:30)
--- NOTE | 2024-04-11 09:49 | DVHSR ---
APPROVED REPORT Exam: Nuclear Stress Test Indication: Congestive Heart Failure Stress Tech: Jennifer Shukla Ht: 5 ft 9 in Wt: 220 lbs BSA: 2.15 m2 HR: 90 bpm BP: 124/59 mmHg BMI: 32.48 Rhythm: NSR with unifocal PVC and PAC Medical History Medical History: CHF, CKD,HTN,COLON CA Allergies: No known drug allergies Stress Test Details Stress Test: Pharmacologic stress testing performed using 0.4 mg of regadenoson per 5 mL given IV ov er 10 seconds. HR Resting HR: 90 bpmMax Heart Rate (APMHR): 150.090722 bpm Max HR Achieved: 139 bpmTarget HR (85% APMHR): 127.901174 bpm % of APMHR: 92.67 Recovery HR: 56 bpm BP Resting BP: 124/59 mmHg Recovery BP: 142/73 mmHg ECG Resting ECG: NSR with unifocal PVC and PAC Clinical Reason for Termination: Completed protocol Nurse Comments Received patient from Nuclear Medicine. Patient is A&O x4 and on RA. Patient is connected to cardiac care unit nurse. PIV flushes well. Reviewed POC and patient verbalizes understanding and gives written consen t to test. Lexiscan stress test performed per protocol. technical training coordinator administered the Cardio lite. Patient tolerated well and vitals returned to baseline. Transferred to Nuclear Medicine with [facility] in stable condition. Stress ECG Conclusion Resting ECG shows normal sinus rhythm. At peak stress level there was frequent PVC but no dynamic EK G changes was noted to suggest ischemia. Resting images shows near homogeneous uptake of radioactive tracer throughout the myocardium without evidence of myocardial infarction. Stress images shows near homogeneous uptake of radioactive tracer throughout the myocardium without e vidence of myocardial ischemia. Well-preserved left ventricular systolic function at 56%. Impression: Negative stress test for ischemia, low risk study NM EXAM: Myocardial Perfusion REST/STRESS Imaging Protocol: Rest Tc-99m/Stress Tc-99m 1 day Resting Data Rest SPECT myocardial perfusion imaging was performed in supine position 60 minutes following the int ravenous injection of 15.2 mCi of Tc-99m Sestamibi. Time of rest injection: 1310 Time of rest imagin Administration Route: IV Administration Site: Left Hand Pharmacologic Stress Pharmacologic stress test was performed by injecting Regadenoson 0.4 mg IV push followed by the intra venous injection of 32.3 mCi of Tc-99m Sestamibi. Time of stress injection: 1425 Time of stress imagin Administration Route: IV Administration Site: Left Hand Gated Stress SPECT was performed 60 minutes after stress injection. The images were gated to evaluate regional wall motion and calculate left ventricular ejection fracti on. Stress only was performed in the Supine position. Exercise Stress At peak stress, the patient was injected intravenously with [/] CmCi of " Nuclear Conclusion ECG Findings: negative for ischemia Clinical Findings: negative for ischemia Nuclear Findings: negative for ischemia Exercise Capacity: not assessed Left Ventricular Function: normal Risk Study: low Resting ECG shows normal sinus rhythm. At peak stress level there was frequent PVC but no dynamic EK G changes was noted to suggest ischemia. Resting images shows near homogeneous uptake of radioactive tracer throughout the myocardium without evidence of myocardial infarction. Stress images shows near homogeneous uptake of radioactive tracer throughout the myocardium without e vidence of myocardial ischemia. Well-preserved left ventricular systolic function at 56%. Impression: Negative stress test for ischemia, low risk study
== END | disposition home or self-care (01) ==
LOC: XYW 12:57
PROVIDERS: ATTEND Internal Medicine
DX: I13.0 Hypertensive heart and chronic kidney disease with heart failure and stage 1 through stage 4 chronic kidney disease, or unspecified chronic kidney disease (principal); I50.32 Chronic diastolic (congestive) heart failure; I49.3 Ventricular premature depolarization; N18.9 Chronic kidney disease, unspecified
CPT/HCPCS: 93017; J2785; 78452

== ENCOUNTER → 2024-05-01 | Outpatient (CLI) | payer OTHER ==
[2024-05-01 13:38] LABS: Urine Bacteria None Seen /hpf (None Seen)
[2024-05-01 13:49] LABS: Basophils # (auto) 0.1 10 ^3/uL (0-0.2); Basophils % (auto) 0.8 % (0.0-2.0); Eosinophils # (auto) 0.3 10 ^3/uL (0-0.8); Eosinophils % (auto) 3.5 % (0.0-7.0); Hematocrit 47.7 % (41.0-53.0); Hemoglobin 15.7 g/dL (13.5-17.5); Lymphocytes # (auto) 1.9 10 ^3/uL (0.4-5.4); Lymphocytes % (auto) 25.2 % (10.0-50.0); Mean Corpuscular Hemoglobin 28.1 pg (28.0-32.0); Mean Corpuscular Volume 85.1 fL (80.0-100.0); Monocytes # (auto) 0.9 10 ^3/uL (0-1.3); Monocytes % (auto) 11.6 % (0.0-12.0); Neutrophils # (auto) 4.4 10 ^3/uL (1.6-8.6); Neutrophils % (auto) 58.9 % (37.0-80.0); Platelet Count (auto) 315 10^3/uL (140-450); Red Cell Distribution Width 14.5 % (11.8-14.3); White Blood Cell 7.5 10^3/uL (4.4-10.8)
[2024-05-01 13:53] LABS: Urine Blood Negative /uL (Negative); Urine Clarity Clear (Clear); Urine Color Colorless (Yellow); Urine Protein, UAD Negative (Negative); Urine Squamous Epithelial Cell FEW /hpf (<5); Urine Urobilinogen Normal (Negative); Urine WBC <1 /hpf (0 - 3); Urine pH 5.5 (5.0-9.0)
[2024-05-01 14:31] LABS: Alanine Aminotransferase 13 U/L (7-40); Albumin 4.5 g/dL (3.2-4.8); Anion Gap 6 (5-15); BUN/Creatinine Ratio 14.9 (10.0-20.0); Calcium 10.3 mg/dL (8.7-10.4); Carbon Dioxide 29 mmol/L (20-31); Chloride 105 mmol/L (98-107); Cholesterol 137 mg/dL (< 200); Glucose 103 mg/dL (74-106); HDL Cholesterol 41 mg/dL (40-59); LDL Cholesterol 83 mg/dL (< 100); Sodium 140 mmol/L (136-145); Triglycerides 141 mg/dL (< 150)
[2024-05-01 14:32] LABS: Total Protein 7.2 g/dL (5.7-8.2)
[2024-05-01 14:41] LABS: Alkaline Phosphatase 121 U/L (46-116); Aspartate Aminotransferase 12 U/L (13-40); Bilirubin, Total 0.3 mg/dL (0.2-1.0); Blood Urea Nitrogen 28 mg/dL (9-23)
[2024-05-02 13:06] LABS: PSA Free 0.1 ng/mL; Prostate Specific Antigen 2.5 ng/mL (0.0-4.0)
== END | disposition home or self-care (01) ==
LOC: LAB 13:23
PROVIDERS: ATTEND Internal Medicine
DX: Z00.01 Encounter for general adult medical examination with abnormal findings (principal); I13.10 Hypertensive heart and chronic kidney disease without heart failure, with stage 1 through stage 4 chronic kidney disease, or unspecified chronic kidney disease; N18.2 Chronic kidney disease, stage 2 (mild); I16.0 Hypertensive urgency; E78.2 Mixed hyperlipidemia; R74.8 Abnormal levels of other serum enzymes
CPT/HCPCS: 36415; 80053; 80061; 81001; 83036; 84154; 84403; 84439; 84443; 85025

== ENCOUNTER 2024-06-14 14:42 | Emergency (ER) | payer OTHER ==
[~2024-06-14] VITALS: Ht 175.3 cm; Wt 100.0 kg
--- NOTE | 2024-06-14 14:50 | ED.PDOC ---
GI ASSESSMENT HPI Comments 69 year old male NADIA presents to the ED with chief complaint of abdominal pain. EMS reports that the patient has been experiencing intermittent RLQ abdominal pain that radiates to the LLQ since hernia surgery that was performed on 01/2024. EMS relays that the patient currently has 7/10 pain, but it is intermittent. Patient denies any N/V/D, dizziness, fever, chills, chest pain, or SOB. Time Seen by MD: 14:45 Reviewed Notes: Nurses Notes, Master Planner Notes, Medications, Allergies Allergies: Coded Allergies: NO KNOWN ALLERGIES (Unverified , 07/10/22) Home Meds Reported Medications Gabapentin (Gabapentin) 100 Mg Cap, 100 MG PO DAILY, CAP 09/14/23 Triamterene & Hydrochlorothiaz (Maxzide) 1 Tab Tab, 1 TAB PO DAILY, TAB 09/14/23 Lisinopril (Lisinopril) 20 Mg Tab, 20 MG PO DAILY, TAB 09/14/23 Amlodipine Besylate (Amlodipine Besylate) 10 Mg Tab, 10 MG PO DAILY, TAB 09/14/23 Information Source: Patient, Emergency Med Personnel Mode of Arrival: EMS Timing: Months Duration: Since onset Prehospital treatment: None Quality: Sharp Vomitus: None Stool: Normal Severity: Moderate Recent: None Recent Hx of: None Pain Location: RLQ, LLQ Associated sign and symptoms: Abdominal Pain Past Medical History PAST MEDICAL HISTORY: Cancer, High Lipids, HTN Surgical History: Hernia Repair, Tonsillectomy Surgical History (Other): Colostomy Family History Family History: Reviewed,noncontributory to illness Social History Smoker: Cigarettes Alcohol: Denies ETOH Use Drugs: Denies Drug Use Lives In: Home Constitutional: denies: chills, diaphoresis, fatigue, fever, malaise, sweats, weakness, others EENTM: denies: blurred vision, double vision, ear bleeding, ear discharge, ear drainage, ear pain, ear ringing, eye pain, eye redness, hearing loss, mouth pain, mouth swelling, nasal discharge, nose bleeding, nose congestion, nose pain, photophobia, tearing, throat pain, throat swelling, voice changes, others Respiratory: denies: cough, hemoptysis, orthopnea, SOB at rest, shortness of breath, SOB with excertion, stridor, wheezing, others Cardiovascular: denies: chest pain, dizzy spells, diaphoresis, Dyspnea on exertion, edema, irregular heart beat, left arm pain, lightheadedness, palpitations, PND, syncope, others Gastrointestinal: reports: abdominal pain; denies: abdomen distended, blood streaked bowels, constipated, diarrhea, dysphagia, difficulty swallowing, hematemesis, melena, nausea, poor appetite, poor fluid intake, rectal bleeding, rectal pain, vomiting, others Genitourinary: denies: burning, dysuria, flank pain, frequency, hematuria, incontinence, penile discharge, penile sore, pain, testicle pain, testicle swelling, urgency, others Neurological: denies: dizziness, fainting, headache, left sided numbness, left sided weakness, numbness, paresthesia, pre-existing deficit, right sided numbness, right sided weakness, seizure, speech problems, tingling, tremors, weakness, others Musculoskeletal: denies: back pain, gout, joint pain, joint swelling, muscle pain, muscle stiffness, neck pain, others Integumetry: denies: bruises, change in color, change in hair/nails, dryness, laceration, lesions, lumps, rash, wounds, others Allergic/Immunocompromised: denies: Difficulty Healing, Frequent Infections, Hives, Itching, others Hematologic/Lymphatic: denies: anemia, blood clots, easy bleeding, easy bruising, swollen glands, others Endocrine: denies: excessive hunger, excessive sweating, excessive thirst, excessive urination, flushing, intolerance to cold, intolerance to heat, unexplained weight gain, unexplained weight loss, others Psychiatric: denies: anxiety, bipolar disorder, depression, hopeless, panic disorder, schizophrenia, sleepless, suicidal, others All Other Systems: Reviewed and Negative Physical Exam General Appearance: Moderate Distress, Normal HEENT: Normal ENT Inspection, PERRL/EOMI Neck: Full Range of Motion, Non-Tender, Normal, Normal Inspection Respiratory: Chest Non-Tender, Lungs Clear, No Accessory Muscle Use, No Respiratory Distress, Normal Breath Sounds Cardiovascular: No Edema, No JVD, No Murmur, No Gallop, Normal Peripheral Pu lses, Regular Rate/Rhythm Breast Exam: Deferred Gastrointestinal: No Organomegaly, Non Tender, No Pulsatile Mass, Normal Bowel Sounds, Soft, Other (Midline scar colostomy) Genitalia: Deferred Pelvic: Deferred Rectal: Deferred Extremities: No calf tenderness, Normal capillary refill, Normal range of motion, Non-tender, Pedal edema Musculoskeletal : Apperance: Normal Neurologic: Alert, maintenance clerk II-XII nml as Tested, No Motor Deficits, Normal Affect, Normal Mood, No Sensory Deficits Cerebellar Function: NOT DONE Reflexes: NOT DONE Skin: Dry, Normal Color, Warm Peripheral Pulses: 3+ Radial (R), 3+ Radial (L) Lymphatic: No Adenopathy Was a procedure done? Was a procedure done?: No GI differential Dx Differential Diagnosis: Constipation, Diverticular disease, Esophagitis, Gastritis/PUD, Gastroenteritis X-Ray, Labs, Meds, VS Vital Signs Date Time Temp Pulse Resp B/P (MAP) Pulse Ox O2 Delivery O2 Flow Rate FiO2 06/14/24 14:48 97.6 85 16 155/104 (121) 98 06/14/24 14:47 83 Lab Test 06/14/24 15:11 Range/Units White Blood Count 6.4 4.4-10.8 10^3/uL Red Blood Count 6.07 H 4.5-5.90 10^6/uL Hemoglobin 16.6 13.5-17.5 g/dL Hematocrit 51.3 41.0-53.0 % Mean Corpuscular Volume 84.4 80.0-100.0 fL Mean Corpuscular Hemoglobin 27.4 L 28.0-32.0 pg Mean Corpuscular Hemoglobin Concent 32.4 32.0-36.0 g/dL Red Cell Distribution Width 14.5 H 11.8-14.3 % Platelet Count 326 140-450 10^3/uL Mean Platelet Volume 7.6 6.9-10.8 fL Neutrophils (%) (Auto) 60.9 37.0-80.0 % Lymphocytes (%) (Auto) 26.0 10.0-50.0 % Monocytes (%) (Auto) 7.6 0.0-12.0 % Eosinophils (%) (Auto) 4.0 0.0-7.0 % Basophils (%) (Auto) 1.5 0.0-2.0 % Neutrophils # (Auto) 3.9 1.6-8.6 10 ^3/uL Lymphocytes # (Auto) 1.7 0.4-5.4 10 ^3/uL Monocytes # (Auto) 0.5 0-1.3 10 ^3/uL Eosinophils # (Auto) 0.3 0-0.8 10 ^3/uL Basophils # (Auto) 0.1 0-0.2 10 ^3/uL Nucleated Red Blood Cells 0.0 % Sodium Level 141 136-145 mmol/L Potassium Level 4.6 3.5-5.1 mmol/L Chloride Level 107 98-107 mmol/L Carbon Dioxide Level 25 20-31 mmol/L Anion Gap 9 5-15 Blood Urea Nitrogen 24 H 9-23 mg/dL Creatinine 1.25 0.700-1.30 mg/dL Glomerular Filtration Rate Calc 62 >90 mL/min BUN/Creatinine Ratio 19.2 10.0-20.0 Serum Glucose 143 H 74-106 mg/dL Calcium Level 10.1 8.7-10.4 mg/dL Patient alert. Came in because of abdominal pain. Was in his primary care physician office. Vitals stable. On examination he does not have midline scar with colostomy. Blood pressure elevated. Was given clonidine. Heart rate within normal limits. Saturation pristine on room air. Abdomen is soft. CT scan of the abdomen reviewed does not show any acute process. Same as before. Has a ventral hernia. Colostomy situation the same. Chronic condition. WBC within normal limits. Hemoglobin within normal limits. Abdomen is soft nontender. All chronic condition. No new symptoms. Explained to the patient. Was told to follow up with his primary care physician. Was told to come back if there is any problem. Time of 1ST Reevaluation: 15:45 Reevaluation 1ST: Unchanged Patient Education/Counseling: Diagnosis, Treatment Family Education/Counseling: No Family Present Additional Information The following tests were ordered, and results were reviewed by me: CT Abd/Pel, CBC, BMP, UA, EKG Additional Information was gathered from interviewing the following independent historians: EMS I reviewed and agreed with the following test results read by other providers: CT Abd/Pel I discussed treatment and results with medical personnel. Departure 1 Departure Time of Disposition: 15:10 Impression: Primary Impression: Intractable abdominal pain Additional Impressions: Hypertensive urgency Ventral hernia Qualified Codes: K43.9 - Ventral hernia without obstruction or gangrene Disposition: 01 HOME / SELF CARE / HOMELESS Condition: Guarded Critical Care Note Critical Care Time?: No Stability Stability form required: No Heart Score Heart Score: Heart Score Response (Comments) Value History N/A 0 EKG N/A 0 Age N/A 0 Risk Factors N/A 0 Troponin N/A 0 Total 0 I personally scribed for JERMAIN GREEN MD ([email or web address]) on 06/14/24 at 14:50. Electronically submitted by Kalpesh Altman ([email or web address]). I personally scribed for JERMAIN GREEN MD ([email or web address]) on 06/14/24 at 15:37. Electronically submitted by Kalpesh Altman ([email or web address]). JERMAIN GREEN MD Jun 14, 2024 14:50
--- NOTE | 2024-06-14 14:57 | ECG ---
[facility] Test Date: 2024-06-14 Test Time: 14:47:59 Pat Name: FLORECITA MAHAJAN Department: ER Room: Gender: M Gage Designer: MAKSIM : 1955 Requested By: JERMAIN GREEN Order Number: [id number] Reading MD: Salvador Mayfield Measurements Intervals [place] Rate: 83 P: 50 SD: 204 QRS: 33 QRSD: 77 T: 46 QT: 379 QTc: 446 Interpretive Statements Sinus rhythm Low voltage, precordial leads Electronically Signed On 06-17-2024 17:38:52 PST by Salvador Mayfield Please click the below link to view image of tracing.
[2024-06-14 15:29] LABS: Basophils # (auto) 0.1 10 ^3/uL (0-0.2); Basophils % (auto) 1.5 % (0.0-2.0); Eosinophils # (auto) 0.3 10 ^3/uL (0-0.8); Hematocrit 51.3 % (41.0-53.0); Hemoglobin 16.6 g/dL (13.5-17.5); Lymphocytes # (auto) 1.7 10 ^3/uL (0.4-5.4); Mean Corpuscular Hemoglobin 27.4 pg (28.0-32.0); Mean Corpuscular Hgb Conc. 32.4 g/dL (32.0-36.0); Mean Corpuscular Volume 84.4 fL (80.0-100.0); Monocytes # (auto) 0.5 10 ^3/uL (0-1.3); Monocytes % (auto) 7.6 % (0.0-12.0); Neutrophils # (auto) 3.9 10 ^3/uL (1.6-8.6); Neutrophils % (auto) 60.9 % (37.0-80.0); Platelet Count (auto) 326 10^3/uL (140-450); Red Blood Cells 6.07 10^6/uL (4.5-5.90); Red Cell Distribution Width 14.5 % (11.8-14.3); White Blood Cell 6.4 10^3/uL (4.4-10.8)
[2024-06-14 15:35] LABS: Anion Gap 9 (5-15); Carbon Dioxide 25 mmol/L (20-31); Potassium 4.6 mmol/L (3.5-5.1); Sodium 141 mmol/L (136-145)
[2024-06-14 15:36] LABS: Calcium 10.1 mg/dL (8.7-10.4)
[2024-06-14 15:41] LABS: BUN/Creatinine Ratio 19.2 (10.0-20.0)
--- NOTE | 2024-06-14 15:44 | DVH ---
CT ABDOMEN AND PELVIS WITHOUT CONTRAST CLINICAL HISTORY: [place] TECHNIQUE: Multiple contiguous axial images of the abdomen and pelvis without intravenous contrast. The images were reformatted degenerate coronal and sagittal reconstructions. All CT scans at this medical facility are performed using dose modulation techniques as appropriate t o a performed exam including the following:Automated exposure control was utilized; adjustment of the MA and/or KV according to patient size; and use of iterative reconstruction technique. Radiation Dose Information: CT Dose: CTDI volume is 22 mGy. Dose-length product is 1178 mGy*cm Comparison: CT CT AB PEL WO CON-NO ORAL OR IV on DOS: 03/13/24, CT CT AB PEL WO CON-NO ORAL OR IV on DOS: 03/08/23 FINDINGS: Evaluation of the abdomen and pelvis is limited without intravenous contrast. There is redemonstration of a broad neck midline ventral hernia containing intra-abdominal fat and sm all bowel loops. The neck of the hernia measures approximately 8.8 cm in transverse diameter. There a re anastomotic sutures in the small bowel loops which are herniating. There is no evidence of small-b owel obstruction. There is also stable left lower quadrant colostomy with peristomal herniation of intra-abdominal fat and large bowel loops. The large bowel loops demonstrate normal caliber. Air intermixed with stool i s seen throughout the colon. There is redemonstration of a right pelvic kidney with renal cysts. The left kidney is seen in the le ft renal fossa. There is no evidence of nephrolithiasis or hydronephrosis. Again seen are multiple hepatic cysts, the largest in the right hepatic lobe measuring approximately 9 cm. The gallbladder, pancreas, adrenal glands, and spleen appear within normal limits. There is no gross evidence of abdominal lymphadenopathy. There is no free fluid or free air. The stomach grossly appears unremarkable. The abdominal aorta and IVC appear within normal limits. The bladder appears unremarkable for the degree of distention. Pelvic organ appears within normal pinto its. There is no gross evidence of a pelvic mass. There is no free fluid collection. There is mild scarring versus atelectasis in the posterior lung bases. There is no acute osseous abnormality. IMPRESSION: 1. Redemonstration of a broad neck midline ventral hernia containing intra-abdominal fat and small miri wel loops. There is no evidence of bowel obstruction. 2. Redemonstration of the left lower quadrant colostomy with peristomal herniation of intra-abdominal fat and large bowel loops. The large bowel loops demonstrate normal caliber. 3. Right pelvic kidney with multiple renal cysts. 4. Multiple scattered hepatic cysts measuring up to approximately 9 cm. HS:Y
[2024-06-14 15:48] LABS: Blood Urea Nitrogen 24 mg/dL (9-23); Chloride 107 mmol/L (98-107); Glucose 143 mg/dL (74-106)
[2024-06-14 18:10] VITALS: BP 153/89; PULSE 89; RESP 17; TEMP 97.6; O2SAT 94
== END 2024-06-14 18:20 | disposition home or self-care (01) ==
LOC: ER 14:42 → EDBD 14:42 → ER 18:19
DX: R10.31 Right lower quadrant pain (principal); R10.32 Left lower quadrant pain; I16.0 Hypertensive urgency; K43.9 Ventral hernia without obstruction or gangrene; E78.5 Hyperlipidemia, unspecified; F17.210 Nicotine dependence, cigarettes, uncomplicated; Z79.899 Other long term (current) drug therapy; Z93.3 Colostomy status; Z98.890 Other specified postprocedural states; Z90.89 Acquired absence of other organs
CPT/HCPCS: 36415; 74176; 80048; 85025; 93005

== ENCOUNTER 2024-07-15 16:20 | Emergency (ER) | payer OTHER ==
[~2024-07-15] VITALS: Ht 175.3 cm; Wt 99.9 kg
--- NOTE | 2024-07-15 17:07 | ED.PDOC ---
Epistaxis- HPI HPI Comments 69 year old male presents to the ED with chief complaint of nose bleeding. Patient reports that at around 11am this morning, he started to experience spontaneous nose bleeding coming from his right nostril. Patient relays that his bleeding has not stopped since then. Patient denies being on any blood thinners. Patient denies any N/V, cough, congestion, headache, or dizziness. Chief Complaint: Nose Bleed Time Seen by MD: 17:05 Primary Care Provider: UNKNOWN Reviewed Notes: Nurses Notes, Medications, Allergies Allergies: Coded Allergies: NO KNOWN ALLERGIES (Unverified , 07/10/22) Home Meds Reported Medications Gabapentin (Gabapentin) 100 Mg Cap, 100 MG PO DAILY, CAP 09/14/23 Triamterene & Hydrochlorothiaz (Maxzide) 1 Tab Tab, 1 TAB PO DAILY, TAB 09/14/23 Lisinopril (Lisinopril) 20 Mg Tab, 20 MG PO DAILY, TAB 09/14/23 Amlodipine Besylate (Amlodipine Besylate) 10 Mg Tab, 10 MG PO DAILY, TAB 09/14/23 Information Source: Patient Mode of Arrival: Ambulatory Severity: # Tbsp., Bleeding Uncontrolled Timing: Hours Duration: Since onset Prehospital treatment: None Location: Right naris Mechanism: Spontaneous onset Circumstances: Unknown Use of: None History of: HTN Last Tetanus: Unknown Nose: Normal Nose: Intranasal/Septum: Blood Bleeding Status: Active bleeding Bleeding Amount: Moderate Source: Right Associated signs and symptoms: None Past Medical History PAST MEDICAL HISTORY: Cancer, High Lipids, HTN Surgical History: Hernia Repair, Tonsillectomy Family History Family History: Reviewed,noncontributory to illness Social History Smoker: Cigarettes Alcohol: Denies ETOH Use Drugs: Denies Drug Use Lives In: Home Constitutional: denies: chills, diaphoresis, fatigue, fever, malaise, sweats, weakness, others EENTM: reports: nose bleeding; denies: blurred vision, double vision, ear bleeding, ear discharge, ear drainage, ear pain, ear ringing, eye pain, eye redness, hearing loss, mouth pain, mouth swelling, nasal discharge, nose congestion, nose pain, photophobia, tearing, throat pain, throat swelling, voice changes, others Respiratory: denies: cough, hemoptysis, orthopnea, SOB at rest, shortness of breath, SOB with excertion, stridor, wheezing, others Cardiovascular: denies: chest pain, dizzy spells, diaphoresis, Dyspnea on exertion, edema, irregular heart beat, left arm pain, lightheadedness, palpitations, PND, syncope, others Gastrointestinal: denies: abdomen distended, abdominal pain, blood streaked bowels, constipated, diarrhea, dysphagia, difficulty swallowing, hematemesis, melena, nausea, poor appetite, poor fluid intake, rectal bleeding, rectal pain, vomiting, others Genitourinary: denies: burning, dysuria, flank pain, frequency, hematuria, incontinence, penile discharge, penile sore, pain, testicle pain, testicle swelling, urgency, others Neurological: denies: dizziness, fainting, headache, left sided numbness, left sided weakness, numbness, paresthesia, pre-existing deficit, right sided numbness, right sided weakness, seizure, speech problems, tingling, tremors, weakness, others Musculoskeletal: denies: back pain, gout, joint pain, joint swelling, muscle pain, muscle stiffness, neck pain, others Integumetry: denies: bruises, change in color, change in hair/nails, dryness, laceration, lesions, lumps, rash, wounds, others Allergic/Immunocompromised: denies: Difficulty Healing, Frequent Infections, Hives, Itching, others Hematologic/Lymphatic: denies: anemia, blood clots, easy bleeding, easy bruising, swollen glands, others Endocrine: denies: excessive hunger, excessive sweating, excessive thirst, excessive urination, flushing, intolerance to cold, intolerance to heat, unexplained weight gain, unexplained weight loss, others Psychiatric: denies: anxiety, bipolar disorder, depression, hopeless, panic disorder, schizophrenia, sleepless, suicidal, others All Other Systems: Reviewed and Negative Physical Exam General Appearance: No Apparent Distress, Normal HEENT: Normal ENT Inspection, Pharynx Normal, TMs Normal Neck: Full Range of Motion, Non-Tender, Normal, Normal Inspection Respiratory: Chest Non-Tender, Lungs Clear, No Accessory Muscle Use, No Respiratory Distress, Normal Breath Sounds Cardiovascular: No Edema, No JVD, No Murmur, No Gallop, Normal Peripheral Pulses, Regular Rate/Rhythm Breast Exam: Deferred Gastrointestinal: No Organomegaly, Non Tender, No Pulsatile Mass, Normal Bowel Sounds, Soft Genitalia: Deferred Pelvic: Deferred Rectal: Deferred Extremities: No calf tenderness, Normal capillary refill, Normal inspection, Normal range of motion, Non-tender, No pedal edema Musculoskeletal : Apperance: Normal Neurologic: Alert, manager [facility] II-XII nml as Tested, No Motor Deficits, Normal Affect, Normal Mood, No Sensory Deficits Cerebellar Function: Normal Reflexes: Normal Skin: Dry, Normal Color, Warm Peripheral Pulses: 1+ carotid (R), 1+ carotid (L) Lymphatic: No Adenopathy Was a procedure done? Was a procedure done?: No Differential Diagnosis (NSB) Differential Diagnosis: Anterior Nasal Bleed, Posterior Nasal Bleed, Hypertension X-Ray, Labs, Meds, VS Vital Signs Date Time Temp Pulse Resp B/P (MAP) Pulse Ox O2 Delivery O2 Flow Rate FiO2 07/15/24 16:32 98.3 93 18 169/109 (129) 98 98.3 X-Ray, Labs, Meds, VS Comment Course in the emergency department uneventful patient came with a right-sided epistaxis which stopped without any issues After removing all the clots surgical pack was inserted to the right nostril who at this time was not bleeding The blood pressure we will be treated with clonidine 0.1 at this time and when the patient goes home he will take his own blood pressure medications Patient to follow up with his PCP Time of 1ST Reevaluation: 18:05 Reevaluation 1ST: Improved Patient Education/Counseling: Diagnosis, Treatment Family Education/Counseling: No Family Present Departure 1 Departure Time of Disposition: 17:23 Impression: Primary Impression: Right-sided nosebleed Additional Impression: Uncontrolled hypertension Disposition: 01 HOME / SELF CARE / HOMELESS Condition: Fair Additional Instructions: Controlled while your blood pressure and follow up with your PCP If any problem arise and he can not stopped bleeding this come back Discharged With: Self Critical Care Note Critical Care Time?: No Stability Stability form required: No Heart Score Heart Score: Heart Score Response (Comments) Value History N/A 0 EKG N/A 0 Age >65 2 Risk Factors 1 or 2 risk factors 1 Troponin N/A 0 Total 3 I personally scribed for CARLOS MANUEL SPAULDING MD ([email or web address]) on 07/15/24 at 17:07. Electronically submitted by Kalpesh Altman ([email or web address]). CARLOS MANUEL SPAULDING MD Jul 15, 2024 17:07
[2024-07-15 18:04] VITALS: BP 154/107; PULSE 90; RESP 17; TEMP 97.8; O2SAT 95
[2024-07-15] MEDS: cloNIDine HCL 0.1 MG TAB PO ONE (18:21)
== END 2024-07-15 18:46 | disposition home or self-care (01) ==
LOC: ER 16:20
DX: R04.0 Epistaxis (principal); I10 Essential (primary) hypertension; F17.210 Nicotine dependence, cigarettes, uncomplicated; Z79.899 Other long term (current) drug therapy; Z90.89 Acquired absence of other organs; Z98.890 Other specified postprocedural states

== ENCOUNTER → 2024-11-03 | Outpatient (CLI) | payer OTHER ==
[2024-11-03 12:00] LABS: Hematocrit 51.1 % (41.0-53.0); Hemoglobin 16.7 g/dL (13.5-17.5); Mean Corpuscular Hemoglobin 27.8 pg (28.0-32.0); Mean Corpuscular Volume 84.9 fL (80.0-100.0); Nucleated Red Blood Cells % 0.1 %
[2024-11-03 12:03] LABS: Urine Protein, UAD 1+ (Negative)
[2024-11-03 12:10] LABS: Alanine Aminotransferase 13 U/L (7-40); Albumin 4.5 g/dL (3.2-4.8); Alkaline Phosphatase 112 U/L (46-116); Anion Gap 10 (5-15); BUN/Creatinine Ratio 15.2 (10.0-20.0); Blood Urea Nitrogen 20 mg/dL (9-23); Carbon Dioxide 24 mmol/L (20-31); Chloride 107 mmol/L (98-107); Cholesterol 165 mg/dL (< 200); Potassium 3.7 mmol/L (3.5-5.1); Sodium 141 mmol/L (136-145); Total Protein 7.3 g/dL (5.7-8.2)
[2024-11-03 12:23] LABS: Bilirubin, Total 0.3 mg/dL (0.2-1.0); Calcium 10.7 mg/dL (8.7-10.4); Glucose 111 mg/dL (74-106); HDL Cholesterol 34 mg/dL (40-59); Triglycerides 171 mg/dL (< 150)
== END | disposition home or self-care (01) ==
LOC: LAB 11:01
PROVIDERS: ATTEND Internal Medicine
DX: I13.0 Hypertensive heart and chronic kidney disease with heart failure and stage 1 through stage 4 chronic kidney disease, or unspecified chronic kidney disease (principal); N18.32 Chronic kidney disease, stage 3b; N17.9 Acute kidney failure, unspecified; I50.9 Heart failure, unspecified; I16.0 Hypertensive urgency; R73.03 Prediabetes; Z13.1 Encounter for screening for diabetes mellitus; Z00.01 Encounter for general adult medical examination with abnormal findings
CPT/HCPCS: 36415; 80053; 80061; 81001; 83036; 84439; 84443; 85025

== ENCOUNTER → 2024-12-08 | Outpatient (CLI) | payer OTHER ==
[~2024-12-08] VITALS: Ht 175.3 cm; Wt 102.1 kg
[~2024-12-08] MED LIST changes: +BUPIVACAINE 0.25% INJ 50ML VIAL ONE; +FURO1TAB31 PO; +HYDROmorphone HCL 2 MG/ML VL/or syr ONE; +LIDOCAINE W/ EPINEPHRINE 1% 20ML VIAL ONE; +LISI40TA16 PO; +MIDAZOLAM HCL 2MG/2ML 2ml VIAL (1mg/ml) ONE; +MORPHINE SULFATE INJ 2 MG/ml SYRG IV PRN; +NITROGLYCERIN 0.4 MG SL TAB SL PRN; +PROPOFOL 10 MG/ML 20 ML IV ONE; +SUCCINYLCHOLINE CHLORIDE 20 MG/ML 10ML VIAL IV ONE; +ceFAZolin 2 GM/D5W50ml 50 ML IV ONE; +fentaNYL CITRATE 100 MCG/2 ML VL ONE; +hydrALAZINE HCL 20 MG/ML VL IV PRN
[2024-12-08 12:55] LABS: Hematocrit 50.1 % (41.0-53.0); Hemoglobin 16.6 g/dL (13.5-17.5); Mean Corpuscular Hemoglobin 27.8 pg (28.0-32.0); Mean Corpuscular Volume 84.1 fL (80.0-100.0); Nucleated Red Blood Cells % 0.1 %
[2024-12-08 13:01] LABS: Urine Protein, UAD 1+ (Negative)
[2024-12-08 13:10] LABS: INR 0.99 (0.9-1.15); Partial Thromboplastin Time 28.4 SEC (24.5-34.5); Prothrombin Time 10.5 sec (9.3-11.8)
[2024-12-08 13:24] LABS: Alanine Aminotransferase 16 U/L (7-40); Anion Gap 9 (5-15); BUN/Creatinine Ratio 12.9 (10.0-20.0); Blood Urea Nitrogen 18 mg/dL (9-23); Calcium 10.1 mg/dL (8.7-10.4); Carbon Dioxide 28 mmol/L (20-31); Potassium 3.9 mmol/L (3.5-5.1); Total Protein 7.5 g/dL (5.7-8.2)
[2024-12-08 13:25] LABS: Albumin 4.8 g/dL (3.2-4.8); Alkaline Phosphatase 117 U/L (46-116); Bilirubin, Total 0.5 mg/dL (0.2-1.0); Chloride 109 mmol/L (98-107); Glucose 120 mg/dL (74-106); Sodium 146 mmol/L (136-145)
[2024-12-11 06:22] VITALS: BP 190/109; PULSE 80; RESP 16; TEMP 97.2; O2SAT 95
== END | disposition home or self-care (01) ==
LOC: LAB 12:31 → SUR 12-11 06:10 → EDSTATUS 12-11 07:00 → OVERFLOW 12-11 09:03 → UNDOADMIN 12-11 09:03 → UNDODISIN 12-11 18:00
PROVIDERS: ATTEND Surgery
DX: Z01.812 Encounter for preprocedural laboratory examination (principal); K43.9 Ventral hernia without obstruction or gangrene
CPT/HCPCS: 36415; 80053; 81001; 85025; 85610; 85730; 86850; 86900; 86901; G0378; J0330; J1100; J2250; J2704; J3490

== ENCOUNTER 2025-01-15 10:44 | Outpatient (CLI) | payer OTHER ==
[~2025-01-15 10:44] MED LIST changes: -BUPIVACAINE 0.25% INJ 50ML VIAL ONE; -HYDROmorphone HCL 2 MG/ML VL/or syr ONE; -LIDOCAINE W/ EPINEPHRINE 1% 20ML VIAL ONE; -LISI20TA56 PO; -MIDAZOLAM HCL 2MG/2ML 2ml VIAL (1mg/ml) ONE; -MORPHINE SULFATE INJ 2 MG/ml SYRG IV PRN; -NITROGLYCERIN 0.4 MG SL TAB SL PRN; -PROPOFOL 10 MG/ML 20 ML IV ONE; -SUCCINYLCHOLINE CHLORIDE 20 MG/ML 10ML VIAL IV ONE; -ceFAZolin 2 GM/D5W50ml 50 ML IV ONE; -fentaNYL CITRATE 100 MCG/2 ML VL ONE; -hydrALAZINE HCL 20 MG/ML VL IV PRN
[2025-01-15 11:18] LABS: Chloride 107 mmol/L (98-107); Potassium 4.2 mmol/L (3.5-5.1); Sodium 143 mmol/L (136-145)
[2025-01-15 11:19] LABS: Anion Gap 10 (5-15); Calcium 9.8 mg/dL (8.7-10.4); Carbon Dioxide 26 mmol/L (20-31)
[2025-01-15 11:24] LABS: BUN/Creatinine Ratio 12.0 (10.0-20.0); Blood Urea Nitrogen 20 mg/dL (9-23)
[2025-01-15 11:26] LABS: Glucose 147 mg/dL (74-106)
== END 2025-01-15 17:00 | disposition home or self-care (01) ==
LOC: LAB 10:44
PROVIDERS: ATTEND Internal Medicine
DX: I12.9 Hypertensive chronic kidney disease with stage 1 through stage 4 chronic kidney disease, or unspecified chronic kidney disease (principal); N18.31 Chronic kidney disease, stage 3a
CPT/HCPCS: 36415; 80048